=== PATIENT | female | born 1980 ===

== ENCOUNTER → 2016-10-11 | Outpatient (CLI) | payer OTHER ==
--- NOTE | 2016-10-11 18:27 | CT ---
EXAMINATION TYPE: CT brain wo con DATE OF EXAM: 10/11/2016 COMPARISON: NONE HISTORY: Episodes of confusion, becoming more frequent CT DLP: 1054.[address] of the brain was performed. The ventricles, basal cisterns and sulci overlying the cerebral convexities demonstrate a normal appe arance. There is no evidence for intracranial hemorrhage or sulcal effacement. No mass effects are seen. Osseous calvarium is intact. If symptoms persist consider MRI as clinically warranted. IMPRESSION: 1. No acute intracranial process is seen at this time.
== END | disposition home or self-care (01) ==
LOC: RADCTMAIN 17:32
PROVIDERS: ATTEND Internal Medicine
DX: R40.4 Transient alteration of awareness (principal); R56.9 Unspecified convulsions
CPT/HCPCS: 70450

== ENCOUNTER → 2016-10-25 | Outpatient (CLI) | payer OTHER ==
--- NOTE | 2016-10-25 09:13 | US ---
EXAMINATION TYPE: US liver DATE OF EXAM: 10/25/2016 COMPARISON: CT & US CLINICAL HISTORY: R94.5 Abnormal Liver function test. Abnormal LFT's EXAM MEASUREMENTS: Liver Length: 13.3 cm Gallbladder Wall: 0.2 cm CBD: 0.5 cm Right Kidney: 10.3 x 4.6 x 4.3 cm Pancreas: wnl, tail obscured by overlying midline bowel gas Liver: Grossly heterogeneous Gallbladder: wnl Evidence for sonographic Mcguire's sign: No CBD: wnl Right Kidney: wnl, lower pole gassed out IMPRESSION: 1. Fatty liver versus diffuse hepatocellular disease.
== END | disposition home or self-care (01) ==
LOC: RADUSWWP 08:49
PROVIDERS: ATTEND Internal Medicine
DX: R94.5 Abnormal results of liver function studies (principal)
CPT/HCPCS: 76705

== ENCOUNTER 2016-11-09 14:57 | Emergency (ER) | payer OTHER ==
[2016-11-09 15:08] VITALS: TEMP 98.2
[2016-11-09] MEDS ORDERED: HYDROcodone/APAP 5-325MG 1 EACH TAB PO STA (15:14)
--- NOTE | 2016-11-09 15:20 | ED ---
General Adult HPI - General Chief complaint: Extremity Injury, Upper Stated complaint: Fell 15 stairs/Arm Pain Time Seen by Provider: 11/09/16 15:10 Source: patient, RN notes reviewed Mode of arrival: ambulatory Limitations: no limitations - History of Present Illness Initial comments: 36-year-old female presents to the emergency Department chief complaint fall. Patient states she fell down the flight of stairs today. Patient states she was trying step over the cat And lost her balance. Patient states she fell onto her right arm and her right elbow having pain. Patient states she that her head. She denies any neck pain. She denies any other injury from the incident. Patient states that her pain is moderate worsening movement or touch of the right shoulder and worse to movement of the right elbow. Patient denies any hand pain. Patient denies any other injuries. Patient was able to ambulate after the incident. Patient states the pain is moderate. Patient denies any recent fever, chills, shortness of breath, chest pain, back pain, abdominal pain, nausea vomiting, numbness or tingling, dysuria or hematuria, constipation or diarrhea, headaches or visual changes, or any other current symptoms. - Related Data Previous Rx's Medication Instructions Recorded Ibuprofen [Motrin] 600 mg PO Q6HR PRN #20 tab 11/09/16 Allergies Allergy/AdvReac Type Severity Reaction Status Date / Time No Known Allergies Allergy Verified 11/09/16 15:08 Review of Systems ROS Statement: Those systems with pertinent positive or pertinent negative responses have been documented in the HPI. ROS Other: All systems not noted in ROS Statement are negative. Past Medical History Past Medical History: Hypertension Additional Past Medical History / Comment(s): knee pain, back pain History of Any Multi-Drug Resistant Organisms: None Reported Past Surgical History: Back Surgery, Orthopedic Surgery Additional Past Surgical History / Comment(s): D & C l knee Past Anesthesia/Blood Transfusion Reactions: No Reported Reaction Past Psychological History: Anxiety Smoking Status: Current every day smoker Past Alcohol Use History: None Reported Past Drug Use History: None Reported - Past Family History Mother History Unknown: Yes General Exam - General Exam Comments Initial Comments: General: The patient is awake and alert, in no distress, and does not appear acutely ill. Neck: The neck is supple, there is no tenderness. Cardiovascular: There is a regular rate and rhythm. No murmur, rub or gallop is appreciated. Respiratory: Lungs are clear to auscultation, respirations are non-labored, breath sounds are equal. No wheezes, stridor, rales, or rhonchi. Musculoskeletal: Sensation intact. Pulses the right upper extremity. Left of right wrist and hand. Patient patient's the radial head of the right elbow. Patient does have about 50% range of motion but limits her self due to pain. No deformity. Patient answers patient along the anterior aspect of the right shoulder. Patient will only move about 50% due to pain. No tenderness to palpation along the scapula or the clavicle. Neurological: CN II-XII intact, There are no obvious motor or sensory deficits. Coordination appears grossly intact. Speech is normal. Skin: Skin is warm and dry and no rashes or lesions are noted. Psychiatric: Normal mood and affect. Limitations: no limitations Course Vital Signs 11/09/16 15:06 Temperature 98.2 F Pulse Rate 102 H Respiratory 20 Rate Blood Pressure 184/100 O2 Sat by Pulse 98 Oximetry Medical Decision Making - Medical Decision Making 36-year-old female presents for right shoulder and elbow pain after fall. Patient x-rays are reviewed and negative. Once patient's x-rays were negative patient was put through range of motion patient does have good range of motion. Patient's. Right elbow contusion as well as a right elbow contusion and sprain. We discussed follow-up return parameters outpatient family's questions. They state Jose management plan. All questions have been answered. They will be discharged. - Radiology Data Radiology results: report reviewed, image reviewed Disposition Clinical Impression: Contusion of right elbow, Sprain of right shoulder Disposition: HOME SELF-CARE Condition: Stable Instructions: Shoulder Sprain (ED), Contusion in Adults (ED) Additional Instructions: Please use medication as discussed. Please follow up with family doctor if symptoms have not improved over the next two days. Please return to the emergency room if your symptoms increase or worsen or for any other concerns. Prescriptions: Ibuprofen [Motrin] 600 mg PO Q6HR PRN #20 tab PRN Reason: Pain Referrals: Leena Meek MD [Primary Care Provider] - 1-2 days Time of Disposition: 15:45
--- NOTE | 2016-11-09 15:37 | XR ---
EXAMINATION TYPE: XR shoulder complete RT DATE OF EXAM: 11/09/2016 COMPARISON: NONE HISTORY: Pain TECHNIQUE: Shoulder examined in 3 views. FINDINGS: The humeral head articulates with the glenoid. The acromio-clavicular junction is normal. No acute fractures or dislocations are evident. A follow up study can be performed 7-10 days from acute trauma for continued pain. IMPRESSION: 1. Normal Shoulder
--- NOTE | 2016-11-09 15:39 | XR ---
EXAMINATION TYPE: XR elbow limited RT DATE OF EXAM: 11/09/2016 COMPARISON: NONE HISTORY: Fall down stairs, pain TECHNIQUE: 4 images of the elbow with an uncooperative patient. Best images are presented. FINDINGS: No acute displaced fractures are evident. The radius aligns normally with the humerus. No e vidence of elevated anterior fat pad is evident. No posterior fat pad elevation is identified. Soft t issues appear normal. Follow-up study can be performed 7-10 days from acute trauma for continued pain. IMPRESSION: 1. Normal right elbow as visualized.
[2016-11-09 15:51] VITALS: BP 145/81; PULSE 85; RESP 17
== END 2016-11-09 15:49 | disposition home or self-care (01) ==
LOC: EC 14:57
DX: S43.401A Unspecified sprain of right shoulder joint, initial encounter (principal); F17.200 Nicotine dependence, unspecified, uncomplicated; S50.01XA Contusion of right elbow, initial encounter; W10.9XXA Fall (on) (from) unspecified stairs and steps, initial encounter
CPT/HCPCS: 99283

== ENCOUNTER → 2016-12-31 | Outpatient (CLI) | payer OTHER ==
--- NOTE | 2016-12-31 16:45 | NM ---
EXAMINATION TYPE: NM bone/joint limited DATE OF EXAM: 12/31/2016 COMPARISON: Right elbow radiographs 11/09/2016 HISTORY: 36 year-old female right elbow pain, extends up the arm for 5 months, fall injury 2 months a go. TECHNIQUE: After the intravenous administration of 22.6 mCi Tc 99m MDP. Three-hour delayed images we re obtained of the upper extremities from above the elbow through the hands in multiple projections. FINDINGS: Relatively symmetric increased tracer activity at the elbow. The remainder of the distal humerus, for earm, and hands show no abnormal tracer accumulation. IMPRESSION: Symmetric tracer activity at the elbows. No focal abnormal tracer accumulation at the right elbow. Fu rther orthopedic consultation can be considered if patient's symptoms persist.
== END | disposition home or self-care (01) ==
LOC: RADNMMAIN 10:35
PROVIDERS: ATTEND Family Medicine
DX: S50.01XD Contusion of right elbow, subsequent encounter (principal)
CPT/HCPCS: 78300; A9503

== ENCOUNTER 2017-05-04 22:28 | Emergency (ER) | payer OTHER ==
[2017-05-04] MEDS ORDERED: MORPHINE SULFATE 4 MG/ML SYRINGE IV STA (23:40)
[2017-05-04] MEDS ORDERED: SODIUM CHLORIDE 0.9% 500 ML IV STA (23:40)
[2017-05-04] MEDS ORDERED: METOCLOPRAMIDE 5 MG/ML 2 ML VIAL IVP STA (23:40)
--- NOTE | 2017-05-04 23:46 | ED ---
General Adult HPI - General Chief complaint: Headache Stated complaint: headache Time Seen by Provider: 05/04/17 23:03 Source: patient, family, RN notes reviewed Mode of arrival: ambulatory Limitations: no limitations - History of Present Illness Initial comments: Chief complaint and history of present illness this is a 36-year-old female with complaint of headache that started around 4 PM. She took Fioricet without relief. Patient reports that she's had a history of migraines that started after she started having seizure 6 months ago. She takes Fioricet for headaches. She had dry heaves. Photophobia. No neuro deficits. - Related Data Previous Rx's Medication Instructions Recorded Ibuprofen [Motrin] 600 mg PO Q6HR PRN #20 tab 11/09/16 Lisinopril [Zestril] 5 mg PO DAILY #60 tab 05/05/17 Allergies Allergy/AdvReac Type Severity Reaction Status Date / Time No Known Allergies Allergy Verified 05/04/17 22:37 Review of Systems ROS Statement: Those systems with pertinent positive or pertinent negative responses have been documented in the HPI. review of systems. Patient has headache photophobia. No chest pain shortness breath she is nauseated no diarrhea. No skin rashes. All systems were reviewed. Past medical processing significantFor seizure disorder starting 6 months ago. Last time she had a seizure was 2 months ago she reports miss silent seizures. Not tonic-clonic. She takes Vimpat and Optiom. Topamax started to headaches that she has on occasion. Past medical problems include knee pain back pain. She had surgery include a lipoma from the or for back. She had a D&C and knee surgery. The chart reports history of hypertension and previous admissions but the patient does not take any medications does not remember having had high blood pressure. Patient smokes daily. Encouraged to stop. Denies alcohol use. ROS Other: All systems not noted in ROS Statement are negative. Past Medical History Past Medical History: Hypertension, Seizure Disorder Additional Past Medical History / Comment(s): knee pain, back pain, migraines History of Any Multi-Drug Resistant Organisms: None Reported Past Surgical History: Back Surgery, Orthopedic Surgery Additional Past Surgical History / Comment(s): D & C l knee Past Anesthesia/Blood Transfusion Reactions: No Reported Reaction Past Psychological History: Anxiety Smoking Status: Current every day smoker Past Alcohol Use History: None Reported Past Drug Use History: None Reported - Past Family History Mother History Unknown: Yes General Exam - General Exam Comments Initial Comments: General: The patient is awake and alert, moderate distress because of a painful migrainous type headache. Across top of her head. Photophobia. Vital signs temperature 96.9 pulse 105 respiratory rate 20 pulse ox 99% room air blood pressure 178/99. This be repeated as the patient receives her pain medication. Eye: Pupils are equal, round and reactive to light, extra-ocular movements are intact ; there is normal conjunctiva bilaterally. No signs of icterus. patient does have photophobia. Ears, nose, mouth and throat: There are moist mucous membranes and no oral lesions. Neck: mild neck discomfort with full neck flexion. Palpation of the soft tissue and the nape of her neck causes pain as well. Cardiovascular: tachycardic heart rate 105.No murmur, rub or gallop is appreciated. Respiratory: Lungs are clear to auscultation, respirations are non-labored, breath sounds are equal. No wheezes, stridor, rales, or rhonchi. Gastrointestinal: Soft, non-distended, non-tender abdomen without masses or organomegaly noted. There is no rebound or guarding present. No CVA tenderness. Bowel sounds are unremarkable.patient reports she was nauseated and had a dry heave. Back: history of back pain. Musculoskeletal: Normal ROM, no tenderness, There is no pedal edema. There is no calf tenderness or swelling. Sensation intact. Neurological: patient denies any neuro deficits, she has moderately severe headache at this time. She's abdomen the past usually associated with Topamax. Takes Fioricet for her headaches. No neuro deficits. Skin: Skin is warm and dry and no rashes or lesions are noted. Limitations: no limitations Course Vital Signs 05/04/17 05/05/17 05/05/17 22:33 00:01 00:26 Temperature 96.9 F L Pulse Rate 105 H 99 83 Respiratory 20 18 20 Rate Blood Pressure 178/99 142/85 118/72 O2 Sat by Pulse 99 98 97 Oximetry Medical Decision Making - Medical Decision Making After IV hydration and analgesia and antinausea medication the patient's headache is subsided significantly. No evidence of meningismus or stiff neck. Minimal photophobia no nausea. The patient also received lisinopril. Blood pressure 118/80. The patient states she had been diagnosed with hypertension but does not take any medications she will be sent home with a prescription of lisinopril 5 mg. Also advised to follow with family physician. CT the brain was done and reviewed by radiologist his findings are ventricles and sulci appear normal. There is no mass effect or midline shift. There is no sign of intracranial hemorrhage. The calvarium appears intact. Impression normal CT of the brain. No change. As read by Dr. Sanford. The patient received 2 more milligrams of morphine. Advised to continue her home use of Zofran and Fioricet. Patient be placed on lisinopril 5 mg daily. Advised follow-up with family physician. Return emergency room as needed. Disposition Clinical Impression: Migraine aura without headache Disposition: HOME SELF-CARE Condition: Fair Instructions: Acute Headache (ED), Migraine Headache (ED) Additional Instructions: Takes lisinopril 1 tablet daily. Use Fioricet and Zofran as directed. Return emergency room as needed otherwise follow-up with family physician. Prescriptions: Lisinopril [Zestril] 5 mg PO DAILY #60 tab Referrals: Jean-Pierre Orlando Jr, DO [Primary Care Provider] - 1-2 days Time of Disposition: 00:59
[2017-05-05] MEDS ORDERED: LISINOPRIL 5 MG TAB PO STA (00:11)
--- NOTE | 2017-05-05 00:33 | CT ---
EXAMINATION TYPE: CT brain wo con DATE OF EXAM: 05/05/2017 COMPARISON: 10/11/2016 HISTORY: headache CT DLP: 1056.20 mGycm. Automated Exposure Control for Dose Reduction was Utilized. TECHNIQUE: CT scan of the head is performed without contrast. FINDINGS: Ventricles and sulci appear normal. There is no mass effect nor midline shift. There is n o sign of intracranial hemorrhage. The calvarium appears intact. IMPRESSION: Normal CT scan of the brain. No change.
[2017-05-05] MEDS ORDERED: MORPHINE SULFATE/PF 10MG/10ML VL IVP STA (00:56)
[2017-05-05 01:33] VITALS: BP 212/120; PULSE 115; RESP 16; TEMP 99
== END 2017-05-05 01:33 | disposition home or self-care (01) ==
LOC: EC 22:28
DX: G43.109 Migraine with aura, not intractable, without status migrainosus (principal); I10 Essential (primary) hypertension; G40.909 Epilepsy, unspecified, not intractable, without status epilepticus; F17.200 Nicotine dependence, unspecified, uncomplicated
CPT/HCPCS: 70450; 99283; 96374; 96375; 96361; 96376; J2270 ×2; J2765

== ENCOUNTER 2017-06-15 22:27 | Emergency (ER) | payer OTHER ==
[2017-06-15 22:32] VITALS: RESP 18
[2017-06-15] MEDS ORDERED: SODIUM CHLORIDE 0.9% 1,000 ML IV STA (22:57)
[2017-06-15] MEDS ORDERED: cefTRIAXone IN SWFI 2,000 MG/20 ML SYRINGE IVP STA (22:59)
[2017-06-15] MEDS ORDERED: RX INFO: IV CONTRAST WAS GIVEN 1 EACH MISC MISCELLANE PRN (23:02)
[2017-06-15] MEDS ORDERED: KETOROLAC 30 MG/ML 1 ML VIAL IVP STA (23:02)
--- NOTE | 2017-06-15 23:15 | ED ---
General Adult HPI - General Source: patient, RN notes reviewed Mode of arrival: ambulatory Limitations: no limitations <Marco Addison - Last Filed: 06/15/17 23:15> <Eleonora Strauss - Last Filed: 06/16/17 00:48> - General Chief complaint: ENT Stated complaint: sore throat Time Seen by Provider: 06/15/17 22:37 - History of Present Illness Initial comments: 36-year-old female presents to the emergency department for a chief complaint of left sided throat pain x 1 day. Patient's family member is helping with history as patient has difficulty speaking due to pain. Patient states the pain began last pain and has worsened since then. Patient also complains of pain in her tongue. Patient states she is having difficulty swallowing secretions as well. Patient denies any difficulty breathing. Patient denies any cough or congestion. Patient denies any fevers or chills at home. Patient denies any tooth aches or or pain in her ear. Patient denies any recent illnesses. Patient denies any other complaints at this time including headache , shortness of breath, chest pain, abdominal pain, nausea or vomiting. (Marco Addison) - Related Data Previous Rx's Medication Instructions Recorded Ibuprofen [Motrin] 600 mg PO Q6HR PRN #20 tab 11/09/16 Lisinopril [Zestril] 5 mg PO DAILY #60 tab 05/05/17 Amoxicillin/Potassium Clav 1 tab PO Q12HR #20 tab 06/16/17 [Augmentin 875-125 Tablet] Ibuprofen 600 mg PO Q6HR #30 tablet 06/16/17 Allergies Allergy/AdvReac Type Severity Reaction Status Date / Time prednisone Allergy Rash/Hives Verified 06/15/17 22:32 Review of Systems ROS Other: All systems not noted in ROS Statement are negative. <Marco Addison - Last Filed: 06/15/17 23:15> ROS Other: All systems not noted in ROS Statement are negative. <Eleonora Strauss - Last Filed: 06/16/17 00:48> ROS Statement: Those systems with pertinent positive or pertinent negative responses have been documented in the HPI. Past Medical History Past Medical History: Hypertension, Seizure Disorder Additional Past Medical History / Comment(s): knee pain, back pain, migraines History of Any Multi-Drug Resistant Organisms: None Reported Past Surgical History: Back Surgery, Orthopedic Surgery Additional Past Surgical History / Comment(s): D & C l knee Past Anesthesia/Blood Transfusion Reactions: No Reported Reaction Past Psychological History: Anxiety Smoking Status: Current every day smoker Past Alcohol Use History: None Reported Past Drug Use History: None Reported - Past Family History Mother History Unknown: Yes <Marco Addison - Last Filed: 06/15/17 23:15> General Exam Limitations: no limitations General appearance: alert Head exam: Present: atraumatic, normocephalic, normal inspection Eye exam: Present: normal appearance, PERRL, EOMI. Absent: scleral icterus, conjunctival injection, periorbital swelling ENT exam: Present: normal exam, normal oropharynx (No peritonsillar abscess noted. No exudates of the tonsils. No erythema of the throat.), mucous membranes moist, TM's normal bilaterally Neck exam: Present: tenderness (Tenderness to the left anterior neck below the mandible), full ROM (Patient is freely they moving her neck with no stiffness.) , other (No swelling or redness of the neck noted around the area of tenderness. ). Absent: meningismus Respiratory exam: Present: normal lung sounds bilaterally. Absent: respiratory distress, wheezes, rales, rhonchi, stridor Cardiovascular Exam: Present: regular rate, normal rhythm, normal heart sounds. Absent: systolic murmur, diastolic murmur, rubs, gallop, clicks <Marco Addison - Last Filed: 06/15/17 23:15> Vital Signs 06/15/17 06/16/17 22:30 00:26 Temperature 99 F Pulse Rate 95 75 Respiratory 18 18 Rate Blood Pressure 183/83 134/77 O2 Sat by Pulse 99 99 Oximetry Medical Decision Making <Marco Addison - Last Filed: 06/15/17 23:15> - Lab Data Result diagrams: 06/15/17 23:30 06/15/17 23:30 - Radiology Data Radiology results: report reviewed <Eleonora Strauss - Last Filed: 06/16/17 00:48> - Medical Decision Making Per Brittany Dubois PA was assigned the patient after labs and imaging were ordered. (Azael,Marco P) This is a 36-year-old female who presents to the emergency department with chief complaint of sore throat and pain with swallowing that started one day ago. On physical examination, oropharynx is non-erythematous and no tonsillar enlargement is noted. There is tenderness and mild swelling on palpation of the left submandibular area. Patient has difficulty swallowing secretions and is actively spitting. She is nonverbal for majority of the emergency department stay, however when she does speak voice is non-muffled. A soft tissue neck x-ray and soft tissue computed tomography scan were obtained and revealed no evidence for pharyngeal masses. It did reveal nonspecific lymph node enlargement. CBC and CMP were unremarkable. Patient was given IV Rocephin while in the emergency department. She did not receive any steroids that she has an allergy to prednisone. This case was discussed with attending physician , Dr. Vargas. Recommended discharging patient home with ibuprofen 600 mg and Augmentin for the next 10 days. Patient will be given referral to Dr. Shelby, ENT for follow-up on Saturday. Patient was made aware of findings and plan. Vital signs are stable and she is in no acute distress. She will be discharged home at this time. She is in agreement. All questions were answered. (Eleonora Strauss) - Lab Data Lab Results 06/15/17 06/15/17 06/15/17 Range/Units 23:30 23:30 23:30 WBC 10.7 H (3.8-10.6) k/uL RBC 5.60 H (3.80-5.40) m/uL Hgb 15.1 (11.4-16.0) gm/dL Hct 46.0 (34.0-46.0) % MCV 82.1 (80.0-100.0) fL MCH 27.0 (25.0-35.0) pg MCHC 32.9 (31.0-37.0) g/dL RDW 14.0 (11.5-15.5) % Plt Count 269 (150-450) k/uL Neutrophils % 78 % Lymphocytes % 15 % Monocytes % 4 % Eosinophils % 2 % Basophils % 0 % Neutrophils # 8.3 H (1.3-7.7) k/uL Lymphocytes # 1.6 (1.0-4.8) k/uL Monocytes # 0.5 (0-1.0) k/uL Eosinophils # 0.2 (0-0.7) k/uL Basophils # 0.0 (0-0.2) k/uL Sodium 144 (137-145) mmol/L Potassium 4.2 (3.5-5.1) mmol/L Chloride 105 (98-107) mmol/L Carbon Dioxide 23 (22-30) mmol/L Anion Gap 16 mmol/L BUN 15 (7-17) mg/dL Creatinine 0.60 (0.52-1.04) mg/dL Est GFR (CKD-EPI)AfAm >90 (>60 ml/min/1.73 sqM) Est GFR (CKD-EPI)NonAf >90 (>60 ml/min/1.73 sqM) Glucose 107 H (74-99) mg/dL Plasma Lactic Acid Markus 1.4 (0.7-2.0) mmol/L Calcium 9.9 (8.4-10.2) mg/dL Total Bilirubin 0.4 (0.2-1.3) mg/dL AST 22 (14-36) U/L ALT 34 (9-52) U/L Alkaline Phosphatase 123 (38-126) U/L Total Protein 7.6 (6.3-8.2) g/dL Albumin 5.0 (3.5-5.0) g/dL Group A Strep Rapid (Negative) 06/15/17 Range/Units 23:30 WBC (3.8-10.6) k/uL RBC (3.80-5.40) m/uL Hgb (11.4-16.0) gm/dL Hct (34.0-46.0) % MCV (80.0-100.0) fL MCH (25.0-35.0) pg MCHC (31.0-37.0) g/dL RDW (11.5-15.5) % Plt Count (150-450) k/uL Neutrophils % % Lymphocytes % % Monocytes % % Eosinophils % % Basophils % % Neutrophils # (1.3-7.7) k/uL Lymphocytes # (1.0-4.8) k/uL Monocytes # (0-1.0) k/uL Eosinophils # (0-0.7) k/uL Basophils # (0-0.2) k/uL Sodium (137-145) mmol/L Potassium (3.5-5.1) mmol/L Chloride (98-107) mmol/L Carbon Dioxide (22-30) mmol/L Anion Gap mmol/L BUN (7-17) mg/dL Creatinine (0.52-1.04) mg/dL Est GFR (CKD-EPI)AfAm (>60 ml/min/1.73 sqM) Est GFR (CKD-EPI)NonAf (>60 ml/min/1.73 sqM) Glucose (74-99) mg/dL Plasma Lactic Acid Markus (0.7-2.0) mmol/L Calcium (8.4-10.2) mg/dL Total Bilirubin (0.2-1.3) mg/dL AST (14-36) U/L ALT (9-52) U/L Alkaline Phosphatase (38-126) U/L Total Protein (6.3-8.2) g/dL Albumin (3.5-5.0) g/dL Group A Strep Rapid Negative (Negative) - Radiology Data X-ray soft tissue neck inclusion: Normal cervical soft tissue exam. CT soft tissue neck with contrast impression: Nonspecific small cervical and submandibular lymph nodes. No evidence of pharyngeal mass. (Eleonora Strauss) Disposition <Marco Addison P - Last Filed: 06/15/17 23:15> Is patient prescribed a controlled substance at d/c from ED?: No Time of Disposition: 00:48 <Eleonora Staruss - Last Filed: 06/16/17 00:48> Clinical Impression: Odynophagia Disposition: HOME SELF-CARE Condition: Good Instructions: Dysphagia (ED) Additional Instructions: Please follow-up with Dr. Shelby, ENT on Saturday morning. Please take medications as prescribed. Please follow up with primary care provider within 1- 2 days. Return to emergency department if symptoms should worsen or any concerns arise. Prescriptions: Amoxicillin/Potassium Clav [Augmentin 875-125 Tablet] 1 tab PO Q12HR #20 tab Ibuprofen 600 mg PO Q6HR #30 tablet Referrals: Jean-Pierre Orlando Jr, DO [Primary Care Provider] - 1-2 days Mike Shelby DO [Doctor of Osteopathic Medicine] - 1-2 days
[2017-06-15 23:42] LABS: Basophils % (A) 0 %; Eosinophils # (A) 0.2 k/uL (0-0.7); Eosinophils % (A) 2 %; HGB 15.1 gm/dL (11.4-16.0); Lymphocytes # (A) 1.6 k/uL (1.0-4.8); Lymphocytes % (A) 15 %; MCHC 32.9 g/dL (31.0-37.0); MCV 82.1 fL (80.0-100.0); Mean Platelet Volume 6.6; Monocytes # (A) 0.5 k/uL (0-1.0); Monocytes % (A) 4 %; Neutrophils # (A) 8.3 k/uL (1.3-7.7); Neutrophils % (A) 78 %; Platelet Count 269 k/uL (150-450); WBC 10.7 k/uL (3.8-10.6)
[2017-06-15 23:53] LABS: ALT 34 U/L (9-52); AST 22 U/L (14-36); Alkaline Phosphatase 123 U/L (38-126); Anion Gap 16 mmol/L; Blood Urea Nitrogen 15 mg/dL (7-17); Calcium 9.9 mg/dL (8.4-10.2); Carbon Dioxide 23 mmol/L (22-30); Chloride 105 mmol/L (98-107); Glucose 107 mg/dL (74-99); Potassium 4.2 mmol/L (3.5-5.1); Sodium 144 mmol/L (137-145); Total Bilirubin 0.4 mg/dL (0.2-1.3); Total Protein 7.6 g/dL (6.3-8.2)
--- NOTE | 2017-06-16 00:22 | CT ---
EXAMINATION TYPE: CT soft tissue neck w con DATE OF EXAM: 06/16/2017 12:10 AM COMPARISON: NONE HISTORY: Dysphasia and constant spitting up. c/o sore neck and swelling mostly to left side. CT DLP: 433.0 mGycm Automated exposure control for dose reduction was used. CONTRAST: CT scan of the neck is performed following with IV Contrast, patient injected with 100 mL of Isovue 3 00. Axial images are obtained, coronal and sagittal reformatted images are reviewed. FINDINGS: There is normal branching pattern of the great vessels on the aortic arch. There is bilateral flow in the carotid and vertebral arteries. There is flow in the jugular veins. Thyroid gland is symmetric. Trachea appears normal. Epiglottis is normal. The submandibular salivary glands are symmetric. Parotid glands are symmetric. There are a few anteri or triangle cervical lymph nodes measure up to 1 cm. I see no significant adenopathy. The tonsils puneet ear normal. Adenoids appear normal. Visualized paranasal sinuses appear normal. Sella turcica is norm al. Temporal bones appear normal. I see no pathologic fluid collection. There are a few submandibular salivary glands and measure up to 1 cm. I see no pathologic enhancement. The cervical spine appears normal. IMPRESSION: Nonspecific small cervical and submandibular lymph nodes. No evidence of a pharyngeal ma ss.
--- NOTE | 2017-06-16 00:23 | XR ---
History dysphagia. Spitting up. Comparison none. Technique 2 views. FINDINGS: Cervical vertebra have normal spacing and alignment. Subglottic trachea appears normal. Epiglottis is normal. Prevertebral soft tissues appear normal. CONCLUSION: Normal cervical soft tissue exam.
[2017-06-16 00:27] VITALS: BP 134/77; PULSE 75
[2017-06-16 00:56] VITALS: TEMP 97.6
== END 2017-06-16 00:55 | disposition home or self-care (01) ==
LOC: EC 22:27
DX: R13.10 Dysphagia, unspecified (principal); R07.0 Pain in throat; K14.6 Glossodynia; I10 Essential (primary) hypertension; F17.200 Nicotine dependence, unspecified, uncomplicated; Z88.8 Allergy status to other drugs, medicaments and biological substances
CPT/HCPCS: 36415; 80053; 83605; 85025; 87040; 87081; 87430; 70360; 70491; 99284; 96374; 96375; 96361; J0696; J1885; Q9967

== ENCOUNTER → 2017-07-22 | Outpatient (CLI) | payer OTHER ==
[2017-07-22 12:13] LABS: ALT 38 U/L (9-52); AST 23 U/L (14-36); Albumin 4.1 g/dL (3.5-5.0); Alkaline Phosphatase 76 U/L (38-126); Anion Gap 12 mmol/L; Blood Urea Nitrogen 10 mg/dL (7-17); Calcium 8.9 mg/dL (8.4-10.2); Carbon Dioxide 22 mmol/L (22-30); Chloride 108 mmol/L (98-107); Glucose 81 mg/dL (74-99); Potassium 4.1 mmol/L (3.5-5.1); Sodium 142 mmol/L (137-145); Total Bilirubin 0.4 mg/dL (0.2-1.3); Total Protein 6.3 g/dL (6.3-8.2)
== END | disposition home or self-care (01) ==
LOC: LABWHC1 11:13
PROVIDERS: ATTEND Psychiatry & Neurology Pain Medicine
DX: G35 Multiple sclerosis (principal); R25.1 Tremor, unspecified
CPT/HCPCS: 36415; 80053

== ENCOUNTER → 2017-08-29 | Outpatient (CLI) | payer OTHER ==
--- NOTE | 2017-08-30 10:09 | US ---
EXAMINATION TYPE: US mass soft tissue chest/back DATE OF EXAM: 08/29/2017 COMPARISON: NONE CLINICAL HISTORY: R22.2 chest mass. Patient indicates area of bulge on right chest wall at level of bra. Areas of lobular adipose tissue seen; No discrete mass seen No gross abnormality. No suspicious sonographic lesion. IMPRESSION: No sonographic finding to correspond to the patient's palpable abnormality. No suspiciou s sonographic lesion.
== END | disposition home or self-care (01) ==
LOC: RADUSWWP 15:27
PROVIDERS: ATTEND Surgery
DX: R22.2 Localized swelling, mass and lump, trunk (principal)

== ENCOUNTER → 2017-09-05 | Outpatient (CLI) | payer OTHER | END | disposition home or self-care (01) | LOC: LABWHC1 16:11 | PROVIDERS: ATTEND Obstetrics & Gynecology | DX: Z34.80 Encounter for supervision of other normal pregnancy, unspecified trimester (principal); Z3A.00 Weeks of gestation of pregnancy not specified | CPT/HCPCS: 36415; 84702 ==

== ENCOUNTER 2017-09-13 10:31 | Emergency (ER) | payer OTHER ==
[2017-09-13 11:22] LABS: Appearance,Urine Cloudy (Clear); Bilirubin,Urine Negative (Negative); Blood,Urine Negative (Negative); Color,Urine Yellow; Glucose,Urine (UA) Negative (Negative); Ketones,Urine Trace (Negative); Leukocyte Esterase,Urine Negative (Negative); Mucus,Urine Rare /hpf; Nitrite,Urine Negative (Negative); Protein,Urine Negative (Negative); RBC,Urine <1 /hpf (0-5); Specific Gravity,Urine 1.017 (1.001-1.035); Squamous Epithelial Cell,Urine 5 /hpf (0-4); Urobilinogen,Urine <2.0 mg/dL (<2.0); WBC,Urine 1 /hpf (0-5)
--- NOTE | 2017-09-13 12:12 | US ---
EXAMINATION TYPE: Transabdominal DATE OF EXAM: 05/21/17 COMPARISON: None CLINICAL HISTORY: Pain. Spotting, cramping today. Hx of seizures for the past few weeks. Unsure LMP . EXAM PERFORMED: Transvaginal (TV) and Transabdominal (TA) EXAM MEASUREMENTS: GESTATIONAL AGE / DATING Dates by LMP: (9 weeks/5 days) EDC: 04/13/2018 Dates by Current Scan for: (6 weeks/0 days) EDC: 05/09/2018 MATERNAL ANATOMY Uterus: 9.1 x 6.7 x 5.2 cm Right Ovary: 3.4 x 1.8 x 2.5 cm Left Ovary: 2.5 x 1.7 x 1.8 cm Post CDS / Adnexa: no free fluid Presence of free fluid: no Presence of corpus luteal cyst: right ovarian - 1.7 x 1.7 x 1.7 cm Presence of subchorionic bleed: Possible. Crescentic hypoechoic areas are seen on few sonographic jackie ges possibly representing a subchorionic hemorrhage appearing to occupy approximately 50% of the gest ational sac diameter. Short-term follow-up is recommended. GESTATION / SURVEY CRL: 0.5 (6 weeks/2 days) MSD: 1.5 (5 weeks/5 days) Yolk Sac (normal less than 6mm): 2.0 Heart Rate: 123 bpm Rhythm: Normal IUP: Viable IUP Date of LMP: 07/07/2017 Beta HcG (if available): Not available at this time Single live IUP measuring 6 weeks 0 days IMPRESSION: 1. Single live intrauterine with a sonographic age of 6 weeks and 0 days, discordant with t he stated menstrual age. Sonographic estimated date of delivery of 05/09/2018. 2. Crescentic areas of hypoattenuation are seen on few images possibly representing a subchorionic he morrhage and estimated to be approximately 50% the gestational sac diameter. Short-term follow-up ult rasound is recommended.
--- NOTE | 2017-09-13 12:39 | ED ---
General Adult HPI - General Chief complaint: Vaginal Bleeding Stated complaint: preg and bleeding Time Seen by Provider: 09/13/17 10:48 Source: patient, RN notes reviewed, old records reviewed Mode of arrival: ambulatory Limitations: no limitations - History of Present Illness Initial comments: This is a 37-year-old female the ER for evaluation. She presents today for evaluation of vaginal bleeding, positive bike to 10 weeks but appeared patient is 1 miscarriage around the same time that started with vaginal bleeding, patient concern for same. Mild abdominal cramping no significant pain. Patient has positive blood breath currently, is blood type positive. Again patient has no other complaints - Related Data Home Medications Medication Instructions Recorded Confirmed Lacosamide [Vimpat] 100 mg PO BID 09/13/17 09/13/17 Allergies Allergy/AdvReac Type Severity Reaction Status Date / Time prednisone Allergy Rash/Hives Verified 09/13/17 10:49 Review of Systems ROS Statement: Those systems with pertinent positive or pertinent negative responses have been documented in the HPI. ROS Other: All systems not noted in ROS Statement are negative. Past Medical History Past Medical History: Hypertension, Seizure Disorder Additional Past Medical History / Comment(s): knee pain, back pain, migraines History of Any Multi-Drug Resistant Organisms: None Reported Past Surgical History: Back Surgery, Orthopedic Surgery Additional Past Surgical History / Comment(s): D & C l knee Past Anesthesia/Blood Transfusion Reactions: No Reported Reaction Past Psychological History: Anxiety Smoking Status: Current every day smoker Past Alcohol Use History: None Reported Past Drug Use History: None Reported - Past Family History Mother History Unknown: Yes General Exam Limitations: no limitations General appearance: alert, in no apparent distress Head exam: Present: atraumatic, normocephalic, normal inspection Eye exam: Present: normal appearance, PERRL, EOMI. Absent: scleral icterus, conjunctival injection, periorbital swelling ENT exam: Present: normal exam, mucous membranes moist Neck exam: Present: normal inspection. Absent: tenderness, meningismus, lymphadenopathy Respiratory exam: Present: normal lung sounds bilaterally. Absent: respiratory distress, wheezes, rales, rhonchi, stridor Cardiovascular Exam: Present: regular rate, normal rhythm, normal heart sounds. Absent: systolic murmur, diastolic murmur, rubs, gallop, clicks GI/Abdominal exam: Present: soft, normal bowel sounds. Absent: distended, tenderness, guarding, rebound, rigid Extremities exam: Present: normal inspection, full ROM, normal capillary refill. Absent: tenderness, pedal edema, joint swelling, calf tenderness Back exam: Present: normal inspection Neurological exam: Present: alert, oriented X3, CN II-XII intact Psychiatric exam: Present: normal affect, normal mood Skin exam: Present: warm, dry, intact, normal color. Absent: rash Course Vital Signs 09/13/17 09/13/17 10:40 13:00 Temperature 98.3 F 97.4 F L Pulse Rate 85 70 Respiratory 18 16 Rate Blood Pressure 138/84 117/63 O2 Sat by Pulse 98 100 Oximetry Medical Decision Making - Medical Decision Making 29 female the ER for evaluation of vaginal bleeding in . Subchorionic hemorrhage and threatened . Patient explained history and off some findings. Patient will follow up with OB as directed - Lab Data Lab Results 09/13/17 Range/Units 11:07 Urine Color Yellow Urine Appearance Cloudy H (Clear) Urine pH 6.0 (5.0-8.0) Ur Specific [place] 1.017 (1.001-1.035) Urine Protein Negative (Negative) Urine Glucose (UA) Negative (Negative) Urine Ketones Trace H (Negative) Urine Blood Negative (Negative) Urine Nitrite Negative (Negative) Urine Bilirubin Negative (Negative) Urine Urobilinogen <2.0 (<2.0) mg/dL Ur Leukocyte Esterase Negative (Negative) Urine RBC <1 (0-5) /hpf Urine WBC 1 (0-5) /hpf Ur Squamous Epith Cells 5 H (0-4) /hpf Urine Mucus Rare H (None) /hpf - Radiology Data Radiology results: report reviewed (Ultrasound shows positive IUP), image reviewed Disposition Clinical Impression: Threatened , Vaginal bleeding, Subchorionic hemorrhage Disposition: HOME SELF-CARE Condition: Good Instructions: Threatened Miscarriage (ED) Is patient prescribed a controlled substance at d/c from ED?: No Referrals: Jean-Pierre Orlando Jr, [Primary Care Provider] - 1-2 days
[2017-09-13 13:01] VITALS: BP 117/63; PULSE 70; RESP 16; TEMP 97.4
== END 2017-09-13 13:00 | disposition home or self-care (01) ==
LOC: EC 10:31
DX: O20.0 Threatened abortion (principal); O20.8 Other hemorrhage in early pregnancy; O99.351 Diseases of the nervous system complicating pregnancy, first trimester; G40.909 Epilepsy, unspecified, not intractable, without status epilepticus; O99.331 Smoking (tobacco) complicating pregnancy, first trimester; F17.200 Nicotine dependence, unspecified, uncomplicated; Z79.899 Other long term (current) drug therapy; Z88.8 Allergy status to other drugs, medicaments and biological substances; Z3A.01 Less than 8 weeks gestation of pregnancy
CPT/HCPCS: 76801; 76817; 81001; 87086; 99284

== ENCOUNTER 2017-10-06 19:01 | Emergency (ER) | payer OTHER ==
[2017-10-06] MEDS ORDERED: SODIUM CHLORIDE 0.9% 1,000 ML IV ONE (21:08)
[2017-10-06 21:46] LABS: Basophils % (A) 0 %; Eosinophils # (A) 0.2 k/uL (0-0.7); Eosinophils % (A) 2 %; HGB 13.7 gm/dL (11.4-16.0); Lymphocytes # (A) 2.1 k/uL (1.0-4.8); Lymphocytes % (A) 22 %; MCH 28.2 pg (25.0-35.0); MCHC 35.1 g/dL (31.0-37.0); MCV 80.5 fL (80.0-100.0); Mean Platelet Volume 6.6; Monocytes # (A) 0.5 k/uL (0-1.0); Monocytes % (A) 5 %; Neutrophils # (A) 6.7 k/uL (1.3-7.7); Neutrophils % (A) 70 %; Platelet Count 276 k/uL (150-450); RBC 4.84 m/uL (3.80-5.40); RDW 13.8 % (11.5-15.5); WBC 9.6 k/uL (3.8-10.6)
--- NOTE | 2017-10-06 21:53 | ED ---
Female Urogenital HPI - General Chief complaint: Vaginal Bleeding Stated complaint: AND BLEEDING Time Seen by Provider: 10/06/17 20:44 Source: patient Mode of arrival: ambulatory Limitations: no limitations - History of Present Illness Initial comments: Patient is a 37-year-old female that is 12 weeks presenting for vaginal bleeding. She states that last night, she started having cramping in the lower abdomen associated with nausea but no vomiting and she had one episode of blood clots today. She admits to chills but no vomiting or diarrhea states that she is getting over pneumonia but currently has no symptoms such as coughing. - Related Data Home Medications Medication Instructions Recorded Confirmed Lacosamide [Vimpat] 100 mg PO BID 09/13/17 09/13/17 Allergies Allergy/AdvReac Type Severity Reaction Status Date / Time prednisone Allergy Rash/Hives Verified 09/13/17 10:49 Review of Systems ROS Statement: Those systems with pertinent positive or pertinent negative responses have been documented in the HPI. Constitutional: Negative for chills, fatigue and fever. HENT: Negative for congestion. Respiratory: Negative for chest tightness, shortness of breath and wheezing. Negative for cough Cardiovascular: Negative for chest pain and palpitations. Gastrointestinal: Positive for abdominal pain and nausea. Negative for abdominal distention, diarrhea, and vomiting. Genitourinary: Negative for dysuria. Positive for vaginal bleeding Musculoskeletal: Negative for back pain, neck pain and neck stiffness. Skin: Negative for color change. Neurological: Negative for dizziness, speech difficulty, weakness and light- headedness. Psychiatric/Behavioral: Negative for agitation and confusion. Negative for anxiety ROS Other: All systems not noted in ROS Statement are negative. Past Medical History Past Medical History: Hypertension, Seizure Disorder Additional Past Medical History / Comment(s): knee pain, back pain, migraines History of Any Multi-Drug Resistant Organisms: None Reported Past Surgical History: Back Surgery, Orthopedic Surgery Additional Past Surgical History / Comment(s): D & C l knee Past Anesthesia/Blood Transfusion Reactions: No Reported Reaction Past Psychological History: Anxiety Smoking Status: Current every day smoker Past Alcohol Use History: None Reported Past Drug Use History: None Reported - Past Family History Mother History Unknown: Yes General Exam - General Exam Comments Initial Comments: Constitutional: Pt is oriented to person, place, and time. Pt appears well- developed and well-nourished. No distress. HENT: Head: Normocephalic and atraumatic. Eyes: EOM are normal. Neck: Normal range of motion. Neck supple. Cardiovascular: Normal rate, regular rhythm, S1 normal, S2 normal and normal heart sounds. Exam reveals no gallop and no friction rub. No murmur heard. Pulmonary/Chest: Effort normal and breath sounds normal. No tachypnea and no bradypnea. No respiratory distress. No wheezes or rales noted. Abdominal: Soft. Bowel sounds are normal. Pt exhibits no shifting dullness, no distension, no pulsatile liver, no fluid wave, no abdominal bruit and no ascites. There is no tenderness. There is no rigidity, no rebound, no guarding, no tenderness at McBurney's point and negative Mcguire's sign. Musculoskeletal: Normal range of motion. Neurological: Pt is alert and oriented to person, place, and time. No cranial nerve deficit. Skin: Skin is warm and dry. No rash noted. Pt is not diaphoretic. No erythema. No pallor. Psychiatric: Pt has a normal mood and affect. Pt behavior is normal. Thought content normal. Limitations: no limitations Course Vital Signs 10/06/17 10/06/17 10/06/17 19:45 22:35 23:29 Temperature 98.7 F 98.1 F Pulse Rate 87 70 Respiratory 18 16 Rate Blood Pressure 137/70 111/59 O2 Sat by Pulse 98 100 Oximetry Medical Decision Making - Medical Decision Making Laboratory studies showed that hemoglobin was stable at 13.7 and electrolytes were within normal limits. Transvaginal ultrasound was performed and showed intrauterine with a heart rate of approximately 172 bpm. There was a subchorionic bleed noted to be any right of the gestational sac and measured 1.8 x 0.7 x 0.6 cm. Patient showed no evidence of hemorrhaging or vaginal bleeding while in the emergency department and it was felt that the patient could be safely discharged with follow-up with obstetrics in the next 1- 2 days. Patient was agreeable plan. - Lab Data Result diagrams: 10/06/17 21:26 10/06/17 21:26 Lab Results 10/06/17 10/06/17 10/06/17 Range/Units 21:00 21:26 21:26 WBC 9.6 (3.8-10.6) k/uL RBC 4.84 (3.80-5.40) m/uL Hgb 13.7 (11.4-16.0) gm/dL Hct 39.0 (34.0-46.0) % MCV 80.5 (80.0-100.0) fL MCH 28.2 (25.0-35.0) pg MCHC 35.1 (31.0-37.0) g/dL RDW 13.8 (11.5-15.5) % Plt Count 276 (150-450) k/uL Neutrophils % 70 % Lymphocytes % 22 % Monocytes % 5 % Eosinophils % 2 % Basophils % 0 % Neutrophils # 6.7 (1.3-7.7) k/uL Lymphocytes # 2.1 (1.0-4.8) k/uL Monocytes # 0.5 (0-1.0) k/uL Eosinophils # 0.2 (0-0.7) k/uL Basophils # 0.0 (0-0.2) k/uL PT (9.0-12.0) sec INR (<1.2) APTT (22.0-30.0) sec Sodium 137 (137-145) mmol/L Potassium 3.7 (3.5-5.1) mmol/L Chloride 106 (98-107) mmol/L Carbon Dioxide 22 (22-30) mmol/L Anion Gap 9 mmol/L BUN 13 (7-17) mg/dL Creatinine 0.50 L (0.52-1.04) mg/dL Est GFR (CKD-EPI)AfAm >90 (>60 ml/min/1.73 sqM) Est GFR (CKD-EPI)NonAf >90 (>60 ml/min/1.73 sqM) Glucose 96 (74-99) mg/dL Calcium 9.7 (8.4-10.2) mg/dL Total Bilirubin 0.4 (0.2-1.3) mg/dL AST 20 (14-36) U/L ALT 26 (9-52) U/L Alkaline Phosphatase 74 (38-126) U/L Total Protein 6.6 (6.3-8.2) g/dL Albumin 4.0 (3.5-5.0) g/dL HCG, Quant 79560.9 mIU/mL Urine Color Yellow Urine Appearance Cloudy H (Clear) Urine pH 5.5 (5.0-8.0) Ur Specific [place] 1.023 (1.001-1.035) Urine Protein Negative (Negative) Urine Glucose (UA) Negative (Negative) Urine Ketones Negative (Negative) Urine Blood Small H (Negative) Urine Nitrite Negative (Negative) Urine Bilirubin Negative (Negative) Urine Urobilinogen <2.0 (<2.0) mg/dL Ur Leukocyte Esterase Trace H (Negative) Urine RBC <1 (0-5) /hpf Urine WBC 3 (0-5) /hpf Ur Squamous Epith Cells 7 H (0-4) /hpf Urine Mucus Rare H (None) /hpf Blood Type Blood Type Recheck Antibody Screen Spec Expiration Date 10/06/17 10/06/17 Range/Units 21:26 21:26 WBC (3.8-10.6) k/uL RBC (3.80-5.40) m/uL Hgb (11.4-16.0) gm/dL Hct (34.0-46.0) % MCV (80.0-100.0) fL MCH (25.0-35.0) pg MCHC (31.0-37.0) g/dL RDW (11.5-15.5) % Plt Count (150-450) k/uL Neutrophils % % Lymphocytes % % Monocytes % % Eosinophils % % Basophils % % Neutrophils # (1.3-7.7) k/uL Lymphocytes # (1.0-4.8) k/uL Monocytes # (0-1.0) k/uL Eosinophils # (0-0.7) k/uL Basophils # (0-0.2) k/uL PT 9.4 (9.0-12.0) sec INR 0.9 (<1.2) APTT 21.6 L (22.0-30.0) sec Sodium (137-145) mmol/L Potassium (3.5-5.1) mmol/L Chloride (98-107) mmol/L Carbon Dioxide (22-30) mmol/L Anion Gap mmol/L BUN (7-17) mg/dL Creatinine (0.52-1.04) mg/dL Est GFR (CKD-EPI)AfAm (>60 ml/min/1.73 sqM) Est GFR (CKD-EPI)NonAf (>60 ml/min/1.73 sqM) Glucose (74-99) mg/dL Calcium (8.4-10.2) mg/dL Total Bilirubin (0.2-1.3) mg/dL AST (14-36) U/L ALT (9-52) U/L Alkaline Phosphatase (38-126) U/L Total Protein (6.3-8.2) g/dL Albumin (3.5-5.0) g/dL HCG, Quant mIU/mL Urine Color Urine Appearance (Clear) Urine pH (5.0-8.0) Ur Specific [place] (1.001-1.035) Urine Protein (Negative) Urine Glucose (UA) (Negative) Urine Ketones (Negative) Urine Blood (Negative) Urine Nitrite (Negative) Urine Bilirubin (Negative) Urine Urobilinogen (<2.0) mg/dL Ur Leukocyte Esterase (Negative) Urine RBC (0-5) /hpf Urine WBC (0-5) /hpf Ur Squamous Epith Cells (0-4) /hpf Urine Mucus (None) /hpf Blood Type O Positive Blood Type Recheck No Antibody Screen NEGATIVE Spec Expiration Date 10/09/2017 - 2325 Disposition Clinical Impression: Vaginal bleeding during , Threatened miscarriage Disposition: HOME SELF-CARE Condition: Good Instructions: Threatened Miscarriage (ED) Is patient prescribed a controlled substance at d/c from ED?: No Referrals: Jean-Pierre Orlando Jr, DO [Primary Care Provider] - 1-2 days Teresa Mata DO [Doctor of Osteopathic Medicine] - 1-2 days Time of Disposition: 23:07
[2017-10-06 21:56] LABS: ALT 26 U/L (9-52); AST 20 U/L (14-36); Alkaline Phosphatase 74 U/L (38-126); Anion Gap 9 mmol/L; Blood Urea Nitrogen 13 mg/dL (7-17); Calcium 9.7 mg/dL (8.4-10.2); Carbon Dioxide 22 mmol/L (22-30); Chloride 106 mmol/L (98-107); Glucose 96 mg/dL (74-99); Potassium 3.7 mmol/L (3.5-5.1); Sodium 137 mmol/L (137-145); Total Bilirubin 0.4 mg/dL (0.2-1.3); Total Protein 6.6 g/dL (6.3-8.2)
[2017-10-06 22:04] LABS: Appearance,Urine Cloudy (Clear); Bilirubin,Urine Negative (Negative); Blood,Urine Small (Negative); Color,Urine Yellow; Glucose,Urine (UA) Negative (Negative); Ketones,Urine Negative (Negative); Leukocyte Esterase,Urine Trace (Negative); Mucus,Urine Rare /hpf; Nitrite,Urine Negative (Negative); PH, Urine 5.5 (5.0-8.0); Protein,Urine Negative (Negative); RBC,Urine <1 /hpf (0-5); Specific Gravity,Urine 1.023 (1.001-1.035); Squamous Epithelial Cell,Urine 7 /hpf (0-4); Urobilinogen,Urine <2.0 mg/dL (<2.0); WBC,Urine 3 /hpf (0-5)
[2017-10-06 22:13] LABS: INR 0.9 (<1.2); Prothrombin Time 9.4 sec (9.0-12.0)
[2017-10-06 22:17] LABS: Partial Thromboplastin Time 21.6 sec (22.0-30.0)
[2017-10-06 22:36] LABS: HCG,Quantitative Serum 45271.9 mIU/mL
--- NOTE | 2017-10-06 22:51 | US ---
EXAMINATION TYPE: Transabdominal DATE OF EXAM: 10/06/2017 COMPARISON: US 09/13/2017 CLINICAL HISTORY: Bleeding with cramping rt> lt. pt lethargic getting over pneumonia recently. Hx D&C .. EXAM PERFORMED: Transabdominal (TA) EXAM MEASUREMENTS: GESTATIONAL AGE / DATING Physician Established: Not yet established Dates by LMP: (12 weeks/0 days) EDC: 04/20/18 Dates by /First Scan: ( 9 weeks/3 days) EDC: 05/09/18 Dates by Current Scan for: (10 weeks/1 days) EDC: 05/03/18 MATERNAL ANATOMY Uterus: anteverted, wnl; 12.7 x 7.4 x 8.5 cm Right Ovary: ?corpus luteum measuring 1.7 x 1.5 x 1.7 cm; 3.4 x 2.5 x 2.5 cm Left Ovary: appears wnl; 3.2 x 1.8 x 1.9 cm Post CDS / Adnexa: appears wnl Presence of free fluid: no Presence of corpus luteal cyst: Yes, right ovary measuring 1.7 x 1.5 x 1.7 cm Presence of subchorionic bleed: Yes measuring approximately 1.8 x 0.7 x 0.6 cm right of gest sac. GESTATION / SURVEY CRL: 3.2 cm (10 weeks/1 days) Heart Rate: 172 bpm Rhythm: Normal IUP: Viable IUP Date of LMP: ~07/14/17 Beta HcG (if available): Not available at this time IMPRESSION: The ultrasound gestational age is 10 weeks and 1 day. No complicating process seen.
[2017-10-06 22:52] VITALS: PULSE 70; RESP 16; TEMP 98.1
[2017-10-06 23:31] VITALS: BP 111/59
== END 2017-10-06 23:32 | disposition home or self-care (01) ==
LOC: EC 19:01
DX: O20.0 Threatened abortion (principal); O99.89 Other specified diseases and conditions complicating pregnancy, childbirth and the puerperium; R11.0 Nausea; O99.351 Diseases of the nervous system complicating pregnancy, first trimester; G40.909 Epilepsy, unspecified, not intractable, without status epilepticus; O99.331 Smoking (tobacco) complicating pregnancy, first trimester; F17.200 Nicotine dependence, unspecified, uncomplicated; Z79.899 Other long term (current) drug therapy; Z88.8 Allergy status to other drugs, medicaments and biological substances; Z3A.12 12 weeks gestation of pregnancy
CPT/HCPCS: 36415; 76801; 80053; 81001; 84702; 85025; 85610; 85730; 86850; 86900; 86901; 99284

== ENCOUNTER 2017-11-30 18:18 | Emergency (ER) | payer OTHER ==
[2017-11-30 18:38] VITALS: RESP 18
[2017-11-30] MEDS ORDERED: METOCLOPRAMIDE 5 MG/ML 2 ML VIAL IVP STA (19:02)
[2017-11-30] MEDS ORDERED: SODIUM CHLORIDE 0.9% 1,000 ML IV STA (19:02)
[2017-11-30] MEDS ORDERED: ACETAMINOPHEN IV (For NPO) 1,000 MG in EMPTY BAG 1 BAG IVPB STA (19:02)
--- NOTE | 2017-11-30 19:06 | ED ---
General Adult HPI - General Chief complaint: Abdominal Pain Stated complaint: 19 wks preg, abd pain Time Seen by Provider: 11/30/17 18:52 Source: patient, RN notes reviewed Mode of arrival: ambulatory Limitations: no limitations - History of Present Illness Initial comments: Patient 37-year-old female who is G5, P3, approximately 19 weeks. By ultrasound , presented to the emergency room today with a chief complaint of lower abdominal and right-sided pain over the last week. Patient is met that she's noticed pain after urinating. States that it is not dysuria. She states that afterwards that she has crampy lower abdomen at times radiating up the right side of the abdomen. Patient also admits to headache over the last week. States located all over his been constant. Patient denies any vaginal bleeding or discharge. Patient denies seizures. She is on Vimpat. Patient was taken off other seizure medications because of . She denies seizure 2 days ago. She states it was witnessed by her daughter. Denies any other complaints or symptoms. Patient denies any recent fever, chills, shortness of breath, chest pain, vomiting, numbness or tingling, dysuria or hematuria, constipation or diarrhea, visual changes, or any other complaints. - Related Data Home Medications Medication Instructions Recorded Confirmed Lacosamide [Vimpat] 100 mg PO BID 09/13/17 09/13/17 Allergies Allergy/AdvReac Type Severity Reaction Status Date / Time prednisone Allergy Rash/Hives Verified 11/30/17 18:37 Review of Systems ROS Statement: Those systems with pertinent positive or pertinent negative responses have been documented in the HPI. ROS Other: All systems not noted in ROS Statement are negative. Past Medical History Past Medical History: Hypertension, Seizure Disorder Additional Past Medical History / Comment(s): knee pain, back pain, migraines History of Any Multi-Drug Resistant Organisms: None Reported Past Surgical History: Back Surgery, Orthopedic Surgery Additional Past Surgical History / Comment(s): D & C l knee Past Anesthesia/Blood Transfusion Reactions: No Reported Reaction Past Psychological History: Anxiety Smoking Status: Current every day smoker Past Alcohol Use History: None Reported Past Drug Use History: None Reported - Past Family History Mother History Unknown: Yes General Exam - General Exam Comments Initial Comments: General: The patient is awake and alert, in no distress, and does not appear acutely ill. Eye: Pupils are equal, round and reactive to light. Extra-ocular movements are intact. No nystagmus. There is normal conjunctiva bilaterally. No signs of icterus. Ears, nose, mouth and throat: There are moist mucous membranes and no oral lesions. Neck: The neck is supple, there is no tenderness or JVD. Cardiovascular: There is a regular rate and rhythm. No murmur, rub or gallop is appreciated. Respiratory: Lungs are clear to auscultation, respirations are non-labored, breath sounds are equal. No wheezes, stridor, rales, or rhonchi. Gastrointestinal: Abdomen soft on palpation. Patient does have tenderness both right and left lower quadrant and suprapubic over the bladder. No rebound , guarding or CVA tenderness. Musculoskeletal: Normal ROM, no tenderness. Sensation intact. Strength 5/5. Pulses equal bilaterally 2+. Neurological: A&O x 3. CN II-XII intact, There are no obvious motor or sensory deficits. Coordination appears grossly intact. Speech is normal. Skin: Skin is warm and dry and no rashes or lesions are noted. Psychiatric: Cooperative, appropriate mood & affect, normal judgment. Limitations: no limitations Course Vital Signs 11/30/17 18:34 Temperature 98.2 F Pulse Rate 93 Respiratory 18 Rate Blood Pressure 127/69 O2 Sat by Pulse 97 Oximetry EKG Findings - EKG Comments: EKG Findings:: EKG performed at 1938: Shows normal sinus rhythm at 84 beats per minute. ND interval 152. QRS 78. QT/QTC 370/437. No acute ST change. Medical Decision Making - Medical Decision Making Patient reexamined at this time shows no signs of distress. She is resting comfortable. Patient was given Reglan and IV fluids. She states headache is gone. Patient's having abdominal pain after voiding. Urinalysis shows no sign of infection. heart tones obtained by OB nurse at 156. Patient's abdomen is soft on palpation. Vitals are stable. Patient will be discharged to follow-up with her OB Saturday morning. She is advised returning if any symptoms increase or worsen. - Lab Data Result diagrams: 11/30/17 19:10 11/30/17 19:10 Lab Results 11/30/17 11/30/17 11/30/17 Range/Units 19:10 19:10 19:10 WBC 7.6 (3.8-10.6) k/uL RBC 4.62 (3.80-5.40) m/uL Hgb 12.9 (11.4-16.0) gm/dL Hct 38.1 (34.0-46.0) % MCV 82.5 (80.0-100.0) fL MCH 28.0 (25.0-35.0) pg MCHC 33.9 (31.0-37.0) g/dL RDW 14.1 (11.5-15.5) % Plt Count 268 (150-450) k/uL Neutrophils % 71 % Lymphocytes % 22 % Monocytes % 5 % Eosinophils % 1 % Basophils % 0 % Neutrophils # 5.3 (1.3-7.7) k/uL Lymphocytes # 1.7 (1.0-4.8) k/uL Monocytes # 0.4 (0-1.0) k/uL Eosinophils # 0.1 (0-0.7) k/uL Basophils # 0.0 (0-0.2) k/uL Sodium 138 (137-145) mmol/L Potassium 3.8 (3.5-5.1) mmol/L Chloride 108 H (98-107) mmol/L Carbon Dioxide 20 L (22-30) mmol/L Anion Gap 10 mmol/L BUN 8 (7-17) mg/dL Creatinine 0.53 (0.52-1.04) mg/dL Est GFR (CKD-EPI)AfAm >90 (>60 ml/min/1.73 sqM) Est GFR (CKD-EPI)NonAf >90 (>60 ml/min/1.73 sqM) Glucose 101 H (74-99) mg/dL Calcium 9.7 (8.4-10.2) mg/dL Total Bilirubin 0.4 (0.2-1.3) mg/dL AST 18 (14-36) U/L ALT 23 (9-52) U/L Alkaline Phosphatase 60 (38-126) U/L Total Protein 6.4 (6.3-8.2) g/dL Albumin 3.7 (3.5-5.0) g/dL Amylase 31 (30-110) U/L Lipase 70 (23-300) U/L HCG, Quant 6767.5 mIU/mL Urine Color Yellow Urine Appearance Cloudy H (Clear) Urine pH 6.5 (5.0-8.0) Ur Specific [place] 1.011 (1.001-1.035) Urine Protein Negative (Negative) Urine Glucose (UA) Negative (Negative) Urine Ketones Negative (Negative) Urine Blood Negative (Negative) Urine Nitrite Negative (Negative) Urine Bilirubin Negative (Negative) Urine Urobilinogen <2.0 (<2.0) mg/dL Ur Leukocyte Esterase Negative (Negative) Ur Squamous Epith Cells 5 H (0-4) /hpf Amorphous Sediment Moderate H (None) /hpf Urine Mucus Rare H (None) /hpf Disposition Clinical Impression: Abdominal pain in , Headache Disposition: HOME SELF-CARE Condition: Good Instructions: Abdominal Pain in (ED) Additional Instructions: Please use medication as discussed. Please follow-up with DIRECTOR MEDICAL WRITING/family doctor in the next 2 days of symptoms have not improved. Please return to emergency room if the symptoms increase or worsen or for any other concerns. Is patient prescribed a controlled substance at d/c from ED?: No Referrals: Jean-Pierre Orlando Jr, [Primary Care Provider] - 1-2 days Time of Disposition: 20:59
[2017-11-30 19:24] LABS: Basophils % (A) 0 %; Eosinophils # (A) 0.1 k/uL (0-0.7); Eosinophils % (A) 1 %; HCT 38.1 % (34.0-46.0); HGB 12.9 gm/dL (11.4-16.0); Lymphocytes # (A) 1.7 k/uL (1.0-4.8); Lymphocytes % (A) 22 %; MCHC 33.9 g/dL (31.0-37.0); MCV 82.5 fL (80.0-100.0); Mean Platelet Volume 6.5; Monocytes # (A) 0.4 k/uL (0-1.0); Monocytes % (A) 5 %; Neutrophils # (A) 5.3 k/uL (1.3-7.7); Neutrophils % (A) 71 %; Platelet Count 268 k/uL (150-450); RBC 4.62 m/uL (3.80-5.40); RDW 14.1 % (11.5-15.5); WBC 7.6 k/uL (3.8-10.6)
[2017-11-30 19:26] LABS: Amorphous Sediment,Urine Moderate /hpf; Appearance,Urine Cloudy (Clear); Bilirubin,Urine Negative (Negative); Blood,Urine Negative (Negative); Color,Urine Yellow; Glucose,Urine (UA) Negative (Negative); Ketones,Urine Negative (Negative); Leukocyte Esterase,Urine Negative (Negative); Mucus,Urine Rare /hpf; Nitrite,Urine Negative (Negative); PH, Urine 6.5 (5.0-8.0); Protein,Urine Negative (Negative); Specific Gravity,Urine 1.011 (1.001-1.035); Squamous Epithelial Cell,Urine 5 /hpf (0-4); Urobilinogen,Urine <2.0 mg/dL (<2.0)
[2017-11-30 19:37] LABS: ALT 23 U/L (9-52); AST 18 U/L (14-36); Albumin 3.7 g/dL (3.5-5.0); Alkaline Phosphatase 60 U/L (38-126); Amylase 31 U/L (30-110); Anion Gap 10 mmol/L; Blood Urea Nitrogen 8 mg/dL (7-17); Calcium 9.7 mg/dL (8.4-10.2); Carbon Dioxide 20 mmol/L (22-30); Chloride 108 mmol/L (98-107); Glucose 101 mg/dL (74-99); Lipase 70 U/L (23-300); Potassium 3.8 mmol/L (3.5-5.1); Sodium 138 mmol/L (137-145); Total Bilirubin 0.4 mg/dL (0.2-1.3); Total Protein 6.4 g/dL (6.3-8.2)
[2017-11-30 19:53] LABS: HCG,Quantitative Serum 6767.5 mIU/mL
[2017-11-30 21:13] VITALS: BP 117/58; PULSE 77; TEMP 98.6
== END 2017-11-30 21:13 | disposition home or self-care (01) ==
LOC: EC 18:18
DX: O26.892 Other specified pregnancy related conditions, second trimester (principal); R10.9 Unspecified abdominal pain; R51 Headache; O99.352 Diseases of the nervous system complicating pregnancy, second trimester; G40.909 Epilepsy, unspecified, not intractable, without status epilepticus; O99.332 Smoking (tobacco) complicating pregnancy, second trimester; F17.200 Nicotine dependence, unspecified, uncomplicated; Z3A.19 19 weeks gestation of pregnancy; Z79.899 Other long term (current) drug therapy; Z88.8 Allergy status to other drugs, medicaments and biological substances
CPT/HCPCS: 36415; 93005; 80053; 82150; 83690; 85025; 81001; 84702; 87086; 99284; 96365; 96375; J2765; J0131

== ENCOUNTER 2018-01-04 12:26 | Emergency (ER) | payer OTHER ==
[2018-01-04 12:48] VITALS: RESP 18
[2018-01-04] MEDS ORDERED: SODIUM CHLORIDE 0.9% 1,000 ML IV STA (13:27)
--- NOTE | 2018-01-04 14:07 | US ---
EXAMINATION TYPE: US abdomen limited DATE OF EXAM: 01/04/2018 COMPARISON: Previous study dated 10/25/2016. CLINICAL HISTORY: Pain. history of seizures, fell out of bed, left flank pain, attention spleen per o rder EXAM MEASUREMENTS: Spleen: 12.2 cm, wnl Left Kidney: 11.8 x 6.6 x 5.0cm, wnl No abnormality seen by ultrasound. IMPRESSION: NO SPLENIC OR RENAL LESION IS IDENTIFIED.
--- NOTE | 2018-01-04 14:08 | US ---
EXAMINATION TYPE: US OB >= 14 wk fetus DATE OF EXAM: 01/04/2018 COMPARISON: None CLINICAL HISTORY: Pain, history of seizures, pt fell out of bed, goes to high risk facility frequentl y for OB scans TECHNIQUE: Transabdominal (TA) GESTATIONAL AGE / DATING Physician Established: pt unsure Dates by Current Scan: (22 weeks/1 days) EDC: 05/09/2018 SURVEY IUP: Single PLACENTA: Anterior PREVIA: unable to evaluate with empty bladder SANTIAGO: 11.9 cm Normal CERVICAL LENGTH (transabdominal: norm > 3.0cm): 3.6 cm BIOMETRY PRESENTATION: Breech LIE: Oblique BPD: 5.2 cm 21 weeks / 5 days HC: 19.5 cm 21 weeks / 5 days AC: 17.5 cm 22 weeks / 3 days FL: 4.2 cm 23 weeks / 4 days ESTIMATED WEIGHT IN GRAMS: 531 grams ESTIMATED WEIGHT IN LBS/OZ: 1 lbs. 3 oz. WEIGHT PERCENTAGE BASED ON ESTABLISHED DATES: n/a HC/AC: 1.12 Normal FL/AC: 23 Normal HEART RATE: 157 bpm RHYTHM: Normal IMPRESSION: HUBER FETUS PRESENT IN A BREECH PRESENTATION WITH A GESTATIONAL AGE OF 22 WEEKS 1 DAY +/- 2 WEEKS . ESTIMATED DATE OF CONFINEMENT BASED ON THIS EXAMINATION IS 05/09/2018
[2018-01-04] MEDS ORDERED: ONDANSETRON 4 MG/2 ML VIAL IVP STA (14:17)
[2018-01-04 14:27] LABS: ALT 14 U/L (9-52); AST 17 U/L (14-36); Alkaline Phosphatase 75 U/L (38-126); Anion Gap 9 mmol/L; Blood Urea Nitrogen 8 mg/dL (7-17); Calcium 9.8 mg/dL (8.4-10.2); Carbon Dioxide 21 mmol/L (22-30); Chloride 108 mmol/L (98-107); Glucose 107 mg/dL (74-99); Potassium 3.9 mmol/L (3.5-5.1); Sodium 138 mmol/L (137-145); Total Bilirubin 0.5 mg/dL (0.2-1.3); Total Protein 6.8 g/dL (6.3-8.2)
[2018-01-04 14:31] LABS: Basophils % (A) 0 %; Eosinophils # (A) 0.1 k/uL (0-0.7); Eosinophils % (A) 1 %; HCT 39.4 % (34.0-46.0); Lymphocytes # (A) 1.5 k/uL (1.0-4.8); Lymphocytes % (A) 18 %; MCH 27.4 pg (25.0-35.0); MCHC 33.1 g/dL (31.0-37.0); MCV 82.9 fL (80.0-100.0); Mean Platelet Volume 6.8; Monocytes # (A) 0.4 k/uL (0-1.0); Monocytes % (A) 5 %; Neutrophils # (A) 6.6 k/uL (1.3-7.7); Neutrophils % (A) 75 %; Platelet Count 248 k/uL (150-450); RBC 4.75 m/uL (3.80-5.40); RDW 14.2 % (11.5-15.5); WBC 8.7 k/uL (3.8-10.6)
[2018-01-04 14:44] LABS: Appearance,Urine Cloudy (Clear); Bilirubin,Urine Negative (Negative); Blood,Urine Negative (Negative); Color,Urine Yellow; Glucose,Urine (UA) Negative (Negative); Ketones,Urine Negative (Negative); Leukocyte Esterase,Urine Negative (Negative); Mucus,Urine Rare /hpf; Nitrite,Urine Negative (Negative); Protein,Urine Trace (Negative); Specific Gravity,Urine 1.018 (1.001-1.035); Squamous Epithelial Cell,Urine 16 /hpf (0-4); Urobilinogen,Urine <2.0 mg/dL (<2.0); WBC,Urine 3 /hpf (0-5)
--- NOTE | 2018-01-04 14:50 | ED ---
Abdominal Pain HPI - General Chief Complaint: Abdominal Pain Stated Complaint: Seizure Time Seen by Provider: 01/04/18 12:56 Source: patient, RN notes reviewed Mode of arrival: ambulatory Limitations: no limitations - History of Present Illness Initial Comments: This is a 29-year-old female who is A1 currently 24 weeks presents emergency Department chief complaint abdominal pain, seizure. Patient states that she believes she had a seizure at home. Patient states that she does have a history and does see Dr. Moreno currently on Vimpat area and she did recently have increase of her medications. Patient states that she was in her bed she will use was last thing she can remember states that she woke up on her left side on the ground. She complains of left-sided abdominal pain, pressure or lower pelvic region. Patient denies any vaginal bleeding or vaginal discharge. Patient denies any head injury, headache or dizziness. She does feel slightly nauseated. Patient's daughter did arrive and states that she was still postictal but is improved at this time. Patient states she is high-risk secondary to placenta previa and advanced maternal age. Patient states that she did not contact her NET UI DEVELOPER prior arrival. Patient denies any dysuria or noted hematuria. Patient did take Tylenol prior arrival for discomfort. - Related Data Home Medications Medication Instructions Recorded Confirmed Lacosamide [Vimpat] 100 mg PO BID 09/13/17 09/13/17 Allergies Allergy/AdvReac Type Severity Reaction Status Date / Time prednisone Allergy Rash/Hives Verified 01/04/18 12:48 Review of Systems ROS Statement: Those systems with pertinent positive or pertinent negative responses have been documented in the HPI. ROS Other: All systems not noted in ROS Statement are negative. Past Medical History Past Medical History: Hypertension, Seizure Disorder Additional Past Medical History / Comment(s): knee pain, back pain, migraines History of Any Multi-Drug Resistant Organisms: None Reported Past Surgical History: Back Surgery, Orthopedic Surgery Additional Past Surgical History / Comment(s): D & C l knee Past Anesthesia/Blood Transfusion Reactions: No Reported Reaction Past Psychological History: Anxiety Smoking Status: Current every day smoker Past Alcohol Use History: None Reported Past Drug Use History: None Reported - Past Family History Mother History Unknown: Yes General Exam Limitations: no limitations General appearance: alert, in no apparent distress Head exam: Present: atraumatic, normocephalic, normal inspection Eye exam: Present: normal appearance, PERRL, EOMI. Absent: scleral icterus, conjunctival injection, periorbital swelling ENT exam: Present: normal exam, normal oropharynx, mucous membranes moist Neck exam: Present: normal inspection, full ROM. Absent: tenderness, meningismus, lymphadenopathy Respiratory exam: Present: normal lung sounds bilaterally. Absent: respiratory distress, wheezes, rales, rhonchi, stridor Cardiovascular Exam: Present: regular rate, normal rhythm, normal heart sounds. Absent: systolic murmur, diastolic murmur, rubs, gallop, clicks GI/Abdominal exam: Present: soft, tenderness (mild to moderate left-sided, lower pelvic region), normal bowel sounds. Absent: distended, guarding, rebound , rigid Back exam: Absent: CVA tenderness (R), CVA tenderness (L) Skin exam: Present: warm, dry, intact, normal color. Absent: rash Course Vital Signs 01/04/18 12:44 Temperature 98 F Pulse Rate 86 Respiratory 18 Rate Blood Pressure 127/84 O2 Sat by Pulse 99 Oximetry Medical Decision Making - Medical Decision Making 37-year-old female presents emergency department reported seizure. Patient does have a history is on current Vimpat and sees urologist on a regular basis. Patient complain of some abdominal pain with no vaginal bleeding or no vaginal discharge. Ultrasound was obtained of her upper quadrant and of baby no acute findings. Patient has been observed in emergency from for 3 hours with no increase in symptoms states his symptoms are abdominal pain aren't improving. I did contact her NET UI DEVELOPER in which the senior resident was covering his practice. They stated that as long as ultrasound was within normal limits and she has no vaginal bleeding that she may be discharged follow-up in office. I did convey this to the patient and she does have follow-up appointment. Return parameters were discussed. We did discuss that she cannot drive for 6 months and she be cleared by her neurologist. - Lab Data Result diagrams: 01/04/18 13:06 01/04/18 13:06 Lab Results 01/04/18 01/04/18 01/04/18 Range/Units 13:00 13:06 13:06 WBC 8.7 (3.8-10.6) k/uL RBC 4.75 (3.80-5.40) m/uL Hgb 13.0 (11.4-16.0) gm/dL Hct 39.4 (34.0-46.0) % MCV 82.9 (80.0-100.0) fL MCH 27.4 (25.0-35.0) pg MCHC 33.1 (31.0-37.0) g/dL RDW 14.2 (11.5-15.5) % Plt Count 248 (150-450) k/uL Neutrophils % 75 % Lymphocytes % 18 % Monocytes % 5 % Eosinophils % 1 % Basophils % 0 % Neutrophils # 6.6 (1.3-7.7) k/uL Lymphocytes # 1.5 (1.0-4.8) k/uL Monocytes # 0.4 (0-1.0) k/uL Eosinophils # 0.1 (0-0.7) k/uL Basophils # 0.0 (0-0.2) k/uL Sodium 138 (137-145) mmol/L Potassium 3.9 (3.5-5.1) mmol/L Chloride 108 H (98-107) mmol/L Carbon Dioxide 21 L (22-30) mmol/L Anion Gap 9 mmol/L BUN 8 (7-17) mg/dL Creatinine 0.48 L (0.52-1.04) mg/dL Est GFR (CKD-EPI)AfAm >90 (>60 ml/min/1.73 sqM) Est GFR (CKD-EPI)NonAf >90 (>60 ml/min/1.73 sqM) Glucose 107 H (74-99) mg/dL Calcium 9.8 (8.4-10.2) mg/dL Magnesium (1.6-2.3) mg/dL Total Bilirubin 0.5 (0.2-1.3) mg/dL AST 17 (14-36) U/L ALT 14 (9-52) U/L Alkaline Phosphatase 75 (38-126) U/L Total Protein 6.8 (6.3-8.2) g/dL Albumin 4.0 (3.5-5.0) g/dL Urine Color Yellow Urine Appearance Cloudy H (Clear) Urine pH 7.0 (5.0-8.0) Ur Specific [place] 1.018 (1.001-1.035) Urine Protein Trace H (Negative) Urine Glucose (UA) Negative (Negative) Urine Ketones Negative (Negative) Urine Blood Negative (Negative) Urine Nitrite Negative (Negative) Urine Bilirubin Negative (Negative) Urine Urobilinogen <2.0 (<2.0) mg/dL Ur Leukocyte Esterase Negative (Negative) Urine WBC 3 (0-5) /hpf Ur Squamous Epith Cells 16 H (0-4) /hpf Urine Mucus Rare H (None) /hpf 01/04/18 Range/Units 13:06 WBC (3.8-10.6) k/uL RBC (3.80-5.40) m/uL Hgb (11.4-16.0) gm/dL Hct (34.0-46.0) % MCV (80.0-100.0) fL MCH (25.0-35.0) pg MCHC (31.0-37.0) g/dL RDW (11.5-15.5) % Plt Count (150-450) k/uL Neutrophils % % Lymphocytes % % Monocytes % % Eosinophils % % Basophils % % Neutrophils # (1.3-7.7) k/uL Lymphocytes # (1.0-4.8) k/uL Monocytes # (0-1.0) k/uL Eosinophils # (0-0.7) k/uL Basophils # (0-0.2) k/uL Sodium (137-145) mmol/L Potassium (3.5-5.1) mmol/L Chloride (98-107) mmol/L Carbon Dioxide (22-30) mmol/L Anion Gap mmol/L BUN (7-17) mg/dL Creatinine (0.52-1.04) mg/dL Est GFR (CKD-EPI)AfAm (>60 ml/min/1.73 sqM) Est GFR (CKD-EPI)NonAf (>60 ml/min/1.73 sqM) Glucose (74-99) mg/dL Calcium (8.4-10.2) mg/dL Magnesium 1.8 (1.6-2.3) mg/dL Total Bilirubin (0.2-1.3) mg/dL AST (14-36) U/L ALT (9-52) U/L Alkaline Phosphatase (38-126) U/L Total Protein (6.3-8.2) g/dL Albumin (3.5-5.0) g/dL Urine Color Urine Appearance (Clear) Urine pH (5.0-8.0) Ur Specific [place] (1.001-1.035) Urine Protein (Negative) Urine Glucose (UA) (Negative) Urine Ketones (Negative) Urine Blood (Negative) Urine Nitrite (Negative) Urine Bilirubin (Negative) Urine Urobilinogen (<2.0) mg/dL Ur Leukocyte Esterase (Negative) Urine WBC (0-5) /hpf Ur Squamous Epith Cells (0-4) /hpf Urine Mucus (None) /hpf - EKG Data EKG Comments: EKG performed at 14:11 normal sinus rhythm with rate 82 WA 1:30 QRS 70 QT/QTC 364/425 inverted T-wave in 3 no other acute findings. Disposition Clinical Impression: Seizure, , Abdominal pain Disposition: HOME SELF-CARE Condition: Stable Instructions: Abdominal Pain in (ED) Additional Instructions: Please return to the Emergency Department if symptoms worsen or any other concerns. Is patient prescribed a controlled substance at d/c from ED?: No Referrals: Jean-Pierre Orlando Jr, [Primary Care Provider] - 1-2 days Time of Disposition: 15:28
[2018-01-04 15:38] VITALS: BP 110/56; PULSE 88; TEMP 98.8
== END 2018-01-04 15:36 | disposition home or self-care (01) ==
LOC: EC 12:26
DX: O99.352 Diseases of the nervous system complicating pregnancy, second trimester (principal); G40.909 Epilepsy, unspecified, not intractable, without status epilepticus; O99.89 Other specified diseases and conditions complicating pregnancy, childbirth and the puerperium; R10.2 Pelvic and perineal pain; R11.0 Nausea; O99.332 Smoking (tobacco) complicating pregnancy, second trimester; F17.200 Nicotine dependence, unspecified, uncomplicated; Z3A.24 24 weeks gestation of pregnancy; Z79.899 Other long term (current) drug therapy; Z88.0 Allergy status to penicillin
CPT/HCPCS: 36415; 80053; 83735; 85025; 81001; 76705; 76805; 99284; 96374; 96361 ×2; J2405

== ENCOUNTER → 2018-01-30 | Outpatient (CLI) | payer OTHER ==
[2018-01-30 10:43] LABS: HCT 37.6 % (34.0-46.0); HGB 12.4 gm/dL (11.4-16.0); MCH 27.4 pg (25.0-35.0); Mean Platelet Volume 6.5; Platelet Count 247 k/uL (150-450); RBC 4.52 m/uL (3.80-5.40); RDW 14.6 % (11.5-15.5); WBC 9.1 k/uL (3.8-10.6)
[2018-01-30 18:04] LABS: HIV 1 AB Non-Reactive (Non-Reactive); HIV AB P24 Non-Reactive (Non-Reactive); HIV P24 AG Non-Reactive (Non-Reactive)
== END ==
LOC: LABWHC1 08:59
PROVIDERS: ATTEND Obstetrics & Gynecology Maternal & Fetal Medicine
DX: O09.892 Supervision of other high risk pregnancies, second trimester (principal); O09.522 Supervision of elderly multigravida, second trimester; Z3A.00 Weeks of gestation of pregnancy not specified
CPT/HCPCS: 36415; 82950; 85027; 86780; 87390

== ENCOUNTER 2018-03-21 10:10 | Outpatient (CLI) | payer OTHER ==
[2018-03-21 11:01] VITALS: BP 111/70; PULSE 89; RESP 17; TEMP 97.8
--- NOTE | 2018-04-11 10:27 | P.MSEPDOC ---
Presenting Problems - Arrival Data Date of Arrival on Unit: 03/21/18 Time of Arrival on Unit: 10:10 Mode of Transport: Ambulatory - Complaint OB-Reason for Admission/Chief Complaint: NST Comment: pt here per order of dr taylor for bi-weekly nst, pt goes to see dr taylor for. weekly appts and recieves a nst while there, pt has a difficult time getting ride for. second nst so pt was told to come here for procedure, pt reports + fm, denies lof/vb,. denies contractions, pt reports elevated bps/ lindsay/ruq pain for last three weeks, dr taylor. is aware and pt was sent for lab tests and is sceduled for an u/s for ruq pain, pt is to follow up with dr taylor for those results, her next appt is saturday,. pt is seeing dr taylor for hx of seizures, pt also reports that she is gdm diet. controlled with a glucose reading of 87 prior to coming to triage Medical History - Information : 6 Para: 4 Term: 4 : 0 Abortions: Spontaneous or Elective: 1 Number of Living Children: 4 - Gestational Age Gestational Age by JORDAN (wks/days): 34 Weeks and 2 Days - History Complications: GDM, Smoker Review of Systems - Review of Systems Constitutional: No problems Breast: No problems ENT: No problems Cardiovascular: No problems Respiratory: No problems Gastrointestinal: No problems Genitourinary: No problems Musculoskeletal: No problems Skin: No problems Comment: pt has hx of seizures, denies seizure activity today Vital Signs - Temperature Temperature: 97.8 F Temperature Source: Oral - Pulse Right Brachial Pulse Rate: 89 Pulse Assessment Method: Automatic Cuff - Respirations Respiratory Rate: 17 Oxygen Delivery Method: Room Air O2 Sat by Pulse Oximetry: 99 - Blood Pressure Right Arm Blood Pressure: 111/70 Blood Pressure Mean: 83 Blood Pressure Source: Automatic Cuff - Comment Vital Signs Comment: initial bp reading was 138/86 Medical Screen Scoring (Pre) - Cervical Exam Dilation: Exam Deferred Effacement: Exam Deferred Membranes: Intact - Uterine Contractions Frequency: N/A Duration: N/A Intensity: N/A - Maternal Vital Signs Maternal Temperature: N/A Maternal Blood Pressure: N/A Signs of Preeclampsia: N/A Maternal Respirations: N/A - Pain Assessment Pain Scale Used: Numeric (1 - 10) Pain Intensity: 0 - Maternal Trauma Maternal Trauma: N/A - Assessment Baseline FHR: 145 Heart Rate - NICHD Category: Category I (Normal) = 0 NST: Reactive Position: N/A Station: N/A - Total Score Total Score (Pre): 0 - Level of Risk Level of Risk: Low (0-5) Physician Notification (Pre) - Physician Notified Physician Notified Date: 03/21/18 Physician Notified Time: 10:29 Physician/Practitioner Notifed:: Dr Mehta Spoke With: Dr Mehta New Order Received: Yes (dc home) Disposition - Disposition OB Disposition: Physician follow up in office, Discharge to home, Written follow up instructions reviewed Discharge Date: 03/21/18 Discharge Time: 10:45 I agree with the RN Medical Screening Exam: Yes Risk & Benefit of care provided described in d/c instruction: Yes Diagnosis: RELATED CONDITIONS, UNSPECIFIED, THIRD TRIMESTER
== END 2018-03-21 10:45 | disposition home or self-care (01) ==
LOC: FBPOP 10:10
PROVIDERS: ATTEND Obstetrics & Gynecology
DX: O26.93 Pregnancy related conditions, unspecified, third trimester (principal); Z3A.34 34 weeks gestation of pregnancy
CPT/HCPCS: 59025; G0463; 99213

== ENCOUNTER → 2018-03-21 | Outpatient (CLI) | payer OTHER ==
[2018-03-21 10:26] LABS: HCT 37.9 % (34.0-46.0); HGB 12.1 gm/dL (11.4-16.0); MCH 25.9 pg (25.0-35.0); MCHC 31.8 g/dL (31.0-37.0); MCV 81.6 fL (80.0-100.0); Mean Platelet Volume 6.8; Platelet Count 249 k/uL (150-450); Poikilocytosis Slight; RBC 4.65 m/uL (3.80-5.40); RDW 15.2 % (11.5-15.5); WBC 10.2 k/uL (3.8-10.6)
[2018-03-21 18:04] LABS: ALT 12 U/L (8-44); AST 17 U/L (13-35)
== END ==
LOC: LABWHC1 09:39
PROVIDERS: ATTEND Obstetrics & Gynecology Maternal & Fetal Medicine
DX: O09.523 Supervision of elderly multigravida, third trimester (principal); O24.410 Gestational diabetes mellitus in pregnancy, diet controlled; O09.893 Supervision of other high risk pregnancies, third trimester; Z3A.00 Weeks of gestation of pregnancy not specified
CPT/HCPCS: 36415; 84450; 84460; 85027

== ENCOUNTER 2018-04-02 04:45 | Outpatient (CLI) | payer OTHER ==
[2018-04-02 05:18] LABS: Glucose,Whole Blood 105 mg/dL (75-99)
[2018-04-02 06:40] VITALS: BP 122/72; PULSE 90; RESP 16; TEMP 96.9
--- NOTE | 2018-04-11 10:39 | P.MSEPDOC ---
Presenting Problems - Arrival Data Date of Arrival on Unit: 04/02/18 Time of Arrival on Unit: 04:46 Mode of Transport: Wheelchair - Complaint OB-Reason for Admission/Chief Complaint: Possible Onset of Labor Comment: 04/01/18 contractions every 4-5 minutes Medical History - Information : 6 Para: 4 Term: 4 : 0 Abortions: Spontaneous or Elective: 1 Number of Living Children: 4 - Gestational Age Gestational Age by JORDAN (wks/days): 36 Weeks and 0 Days - History Complications: GDM Review of Systems - Review of Systems Constitutional: No problems Breast: No problems ENT: No problems Cardiovascular: No problems Respiratory: No problems Gastrointestinal: No problems Genitourinary: No problems Musculoskeletal: No problems Neurological: No problems Skin: No problems Vital Signs - Temperature Temperature: 96.9 F Temperature Source: Temporal Artery Scan - Pulse Right Brachial Pulse Rate: 90 Pulse Assessment Method: Automatic Cuff - Respirations Respiratory Rate: 16 Oxygen Delivery Method: Room Air O2 Sat by Pulse Oximetry: 98 - Blood Pressure Right Arm Blood Pressure: 122/72 Blood Pressure Mean: 88 Blood Pressure Source: Automatic Cuff Medical Screen Scoring (Pre) - Cervical Exam Dilation: 0 cm = 0 Membranes: Intact - Uterine Contractions Frequency: > or = 36 weeks =2 Duration: > 40 seconds = 2 Intensity: N/A - Maternal Vital Signs Maternal Temperature: N/A Maternal Blood Pressure: N/A Signs of Preeclampsia: N/A Maternal Respirations: N/A - Pain Assessment Pain Location and Character: Lower, Back Pain Scale Used: Numeric (1 - 10) Pain Intensity: 6 Pain Management Goal: 0 Pain Description: *Acute, Cramping Pain Radiation Location: NONE Pain Frequency: Intermittent Pain Duration: 1 Pain Duration Units: Days Pain Behavior: Facial Grimacing, Vocalization Pain Aggravating Factors: Contractions Non-Pharmacological Interventions: Darkened Room, Position/Reposition - Maternal Trauma Maternal Trauma: N/A - Assessment Baseline FHR: 135 Heart Rate - NICHD Category: Category I (Normal) = 0 NST: Reactive Position: N/A Station: N/A - Total Score Total Score (Pre): 4 - Level of Risk Level of Risk: Low (0-5) Physician Notification (Pre) - Physician Notified Physician Notified Date: 04/02/18 Physician Notified Time: 05:25 Physician/Practitioner Notifed:: [id number] Spoke With: Dr. Mehta New Order Received: Yes - Notification Comment Comment: Notified Dr. Mehta of patients complaints of contractions every 3-4 minutes, cervical exam, amnisure and NST results. Patients usually follows with a high risk Dr. Dr. Mehta states patient can be discharged home and follow up with her regular provider. Disposition - Disposition OB Disposition: Physician follow up in office, Discharge to home, Written follow up instructions reviewed Discharge Date: 04/02/18 Discharge Time: 05:31 I agree with the RN Medical Screening Exam: Yes Risk & Benefit of care provided described in d/c instruction: Yes Diagnosis: FALSE LABOR BEFORE 37 COMPLETED WEEKS OF GEST, THIRD TRI Additional Diagnoses: O47.03
== END 2018-04-02 05:31 | disposition home or self-care (01) ==
LOC: FBPOP 04:45
PROVIDERS: ATTEND Obstetrics & Gynecology
DX: O47.03 False labor before 37 completed weeks of gestation, third trimester (principal); Z3A.36 36 weeks gestation of pregnancy
CPT/HCPCS: 59025; 84112; G0463; 99213

== ENCOUNTER → 2018-11-19 | Outpatient (CLI) | payer OTHER | END | disposition home or self-care (01) | LOC: LABWHC1 09:56 | PROVIDERS: ATTEND Psychiatry & Neurology Pain Medicine | DX: G40.909 Epilepsy, unspecified, not intractable, without status epilepticus (principal); Z51.81 Encounter for therapeutic drug level monitoring | CPT/HCPCS: 36415; 80175 ==

== ENCOUNTER 2019-02-08 14:33 | Emergency (ER) | payer OTHER ==
[2019-02-08] MEDS ORDERED: SODIUM CHLORIDE 0.9% 500 ML 500 ML IV ONE (14:44)
[2019-02-08 14:47] VITALS: RESP 18; TEMP 98.2
[2019-02-08 15:08] LABS: Basophils % (A) 0 %; Eosinophils # (A) 0.2 k/uL (0-0.7); Eosinophils % (A) 2 %; HCT 41.1 % (34.0-46.0); HGB 13.9 gm/dL (11.4-16.0); Lymphocytes # (A) 2.3 k/uL (1.0-4.8); Lymphocytes % (A) 28 %; MCH 28.2 pg (25.0-35.0); MCHC 33.8 g/dL (31.0-37.0); MCV 83.6 fL (80.0-100.0); Monocytes # (A) 0.3 k/uL (0-1.0); Monocytes % (A) 4 %; Neutrophils # (A) 5.4 k/uL (1.3-7.7); Neutrophils % (A) 66 %; Platelet Count 303 k/uL (150-450); RBC 4.92 m/uL (3.80-5.40); RDW 13.9 % (11.5-15.5); WBC 8.3 k/uL (3.8-10.6)
[2019-02-08 15:17] LABS: ALT 22 U/L (4-34); AST 27 U/L (14-36); African American GFR (CKD) >90 (>60 ml/min/1.73 sqM); Albumin 4.6 g/dL (3.5-5.0); Alkaline Phosphatase 96 U/L (38-126); Anion Gap 10 mmol/L; Blood Urea Nitrogen 9 mg/dL (7-17); Calcium 9.2 mg/dL (8.4-10.2); Carbon Dioxide 21 mmol/L (22-30); Chloride 109 mmol/L (98-107); Glucose 149 mg/dL (74-99); Non-African American GFR(CKD) >90 (>60 ml/min/1.73 sqM); Potassium 3.9 mmol/L (3.5-5.1); Sodium 140 mmol/L (137-145); Total Bilirubin 0.7 mg/dL (0.2-1.3); Total Protein 7.2 g/dL (6.3-8.2)
[2019-02-08] MEDS ORDERED: SODIUM CHLORIDE 0.9% 500 ML 500 ML IV STA (15:18)
[2019-02-08] MEDS ORDERED: MORPHINE SULFATE 4 MG/ML SYRINGE IVP STA (15:19)
--- NOTE | 2019-02-08 15:22 | ED ---
General Adult HPI - General Chief complaint: Urogenital Stated complaint: 10 wks , bleeding Time Seen by Provider: 02/08/19 14:37 Source: patient, RN notes reviewed Mode of arrival: ambulatory Limitations: no limitations - History of Present Illness Initial comments: 38-year-old female with a past medical history of seizure disorder, hyper tension presents to the emergency department for vaginal bleeding. Patient states she believes she is about 10 weeks . Patient's last menstrual period was 12/05/2018. Patient states that she found out she was 5 days ago. States that she started to have vaginal spotting 3 days ago. States that today it worsened and now she is bleeding heavily. Patient admits to cramping and lower back pain. 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 Guevara. She has not seen Dr. Guevara for this . Patient was due to get a tubal ligation on March 06.Patient has no other complaints at this time including shortness of breath, chest pain, nausea or vomiting, headache, or visual changes. - Related Data Home Medications Medication Instructions Recorded Confirmed Lacosamide [Vimpat] 200 mg PO BID 09/13/17 04/02/18 Allergies Allergy/AdvReac Type Severity Reaction Status Date / Time prednisone Allergy Rash/Hives Verified 02/08/19 14:46 Review of Systems ROS Statement: Those systems with pertinent positive or pertinent negative responses have been documented in the HPI. ROS Other: All systems not noted in ROS Statement are negative. Past Medical History Past Medical History: Hypertension, Seizure Disorder Additional Past Medical History / Comment(s): knee pain, back pain, migraines History of Any Multi-Drug Resistant Organisms: None Reported Past Surgical History: Back Surgery, Orthopedic Surgery Additional Past Surgical History / Comment(s): D & C l knee Past Anesthesia/Blood Transfusion Reactions: No Reported Reaction Past Psychological History: Anxiety Smoking Status: Never smoker Past Alcohol Use History: None Reported Past Drug Use History: None Reported - Past Family History Mother History Unknown: Yes General Exam Limitations: no limitations General appearance: alert, in no apparent distress Head exam: Present: atraumatic, normocephalic, normal inspection Eye exam: Present: normal appearance, PERRL, EOMI. Absent: scleral icterus, conjunctival injection, periorbital swelling ENT exam: Present: normal exam, mucous membranes moist Neck exam: Present: normal inspection. Absent: tenderness, meningismus, lymphadenopathy Respiratory exam: Present: normal lung sounds bilaterally. Absent: respiratory distress, wheezes, rales, rhonchi, stridor Cardiovascular Exam: Present: regular rate, normal rhythm, normal heart sounds. Absent: systolic murmur, diastolic murmur, rubs, gallop, clicks GI/Abdominal exam: Present: soft, normal bowel sounds. Absent: distended, tenderness, guarding, rebound, rigid External exam: Present: normal external exam. Absent: lesions, lacerations, ecchymosis Speculum exam: Present: vaginal bleeding. Absent: normal speculum exam, erythema, vaginal discharge, cervical discharge, foreign body, tissue (no tisssue in the cervix), laceration Course Vital Signs 02/08/19 02/08/19 14:44 15:14 Temperature 98.2 F Pulse Rate 127 H 98 Respiratory 18 18 Rate Blood Pressure 152/113 161/101 O2 Sat by Pulse 98 98 Oximetry Medical Decision Making - Medical Decision Making She initially tachycardic on presentation. Likely secondary to anxiety she was very upset. This did improve throughout her stay. CBC CMP unremarkable. Patient does have mild vaginal bleeding on exam. I was able to visualize the cervix and I do not see any tissue. Seems open at this time. HCG is 1000. Patient is O+ blood type, does not require RhoGAM. Ultrasound was obtained which shows no IUP seen at this time. Given clinical scenario it is likely that patient miscarried however hcg will be trended. Patient denies any lightheadedness or any other symptoms at this time. Patient sees Dr. Guevara. Dr. Montesinos spoke with Dr. Mata who is on-call with Dr. Guevara. She recommends repeat beta hCG in 2-3 days. Recommends following up later this week. If patient has any worsening symptoms she will return here to the emergency room department. Patient is comfortable with this plan. - Lab Data Result diagrams: 02/08/19 14:44 02/08/19 14:44 Lab Results 02/08/19 02/08/19 02/08/19 Range/Units 14:44 14:44 14:44 WBC 8.3 (3.8-10.6) k/uL RBC 4.92 (3.80-5.40) m/uL Hgb 13.9 (11.4-16.0) gm/dL Hct 41.1 (34.0-46.0) % MCV 83.6 (80.0-100.0) fL MCH 28.2 (25.0-35.0) pg MCHC 33.8 (31.0-37.0) g/dL RDW 13.9 (11.5-15.5) % Plt Count 303 (150-450) k/uL Neutrophils % 66 % Lymphocytes % 28 % Monocytes % 4 % Eosinophils % 2 % Basophils % 0 % Neutrophils # 5.4 (1.3-7.7) k/uL Lymphocytes # 2.3 (1.0-4.8) k/uL Monocytes # 0.3 (0-1.0) k/uL Eosinophils # 0.2 (0-0.7) k/uL Basophils # 0.0 (0-0.2) k/uL Sodium 140 (137-145) mmol/L Potassium 3.9 (3.5-5.1) mmol/L Chloride 109 H (98-107) mmol/L Carbon Dioxide 21 L (22-30) mmol/L Anion Gap 10 mmol/L BUN 9 (7-17) mg/dL Creatinine 0.63 (0.52-1.04) mg/dL Est GFR (CKD-EPI)AfAm >90 (>60 ml/min/1.73 sqM) Est GFR (CKD-EPI)NonAf >90 (>60 ml/min/1.73 sqM) Glucose 149 H (74-99) mg/dL Calcium 9.2 (8.4-10.2) mg/dL Total Bilirubin 0.7 (0.2-1.3) mg/dL AST 27 (14-36) U/L ALT 22 (4-34) U/L Alkaline Phosphatase 96 (38-126) U/L Total Protein 7.2 (6.3-8.2) g/dL Albumin 4.6 (3.5-5.0) g/dL HCG, Quant 1089.8 mIU/mL Urine Color Urine Appearance (Clear) Urine pH (5.0-8.0) Ur Specific [place] (1.001-1.035) Urine Protein (Negative) Urine Glucose (UA) (Negative) Urine Ketones (Negative) Urine Blood (Negative) Urine Nitrite (Negative) Urine Bilirubin (Negative) Urine Urobilinogen (<2.0) mg/dL Ur Leukocyte Esterase (Negative) Urine RBC (0-5) /hpf Urine WBC (0-5) /hpf Ur Squamous Epith Cells (0-4) /hpf Urine Mucus (None) /hpf Blood Type O Positive Blood Type Recheck O Pos Bld Type Recheck Status No Antibody Screen NEGATIVE Spec Expiration Date 02/11/2019 - 234302/08/19 Range/Units 16:35 WBC (3.8-10.6) k/uL RBC (3.80-5.40) m/uL Hgb (11.4-16.0) gm/dL Hct (34.0-46.0) % MCV (80.0-100.0) fL MCH (25.0-35.0) pg MCHC (31.0-37.0) g/dL RDW (11.5-15.5) % Plt Count (150-450) k/uL Neutrophils % % Lymphocytes % % Monocytes % % Eosinophils % % Basophils % % Neutrophils # (1.3-7.7) k/uL Lymphocytes # (1.0-4.8) k/uL Monocytes # (0-1.0) k/uL Eosinophils # (0-0.7) k/uL Basophils # (0-0.2) k/uL Sodium (137-145) mmol/L Potassium (3.5-5.1) mmol/L Chloride (98-107) mmol/L Carbon Dioxide (22-30) mmol/L Anion Gap mmol/L BUN (7-17) mg/dL Creatinine (0.52-1.04) mg/dL Est GFR (CKD-EPI)AfAm (>60 ml/min/1.73 sqM) Est GFR (CKD-EPI)NonAf (>60 ml/min/1.73 sqM) Glucose (74-99) mg/dL Calcium (8.4-10.2) mg/dL Total Bilirubin (0.2-1.3) mg/dL AST (14-36) U/L ALT (4-34) U/L Alkaline Phosphatase (38-126) U/L Total Protein (6.3-8.2) g/dL Albumin (3.5-5.0) g/dL HCG, Quant mIU/mL Urine Color Yellow Urine Appearance Clear (Clear) Urine pH 6.5 (5.0-8.0) Ur Specific [place] 1.012 (1.001-1.035) Urine Protein Negative (Negative) Urine Glucose (UA) Negative (Negative) Urine Ketones Negative (Negative) Urine Blood Moderate H (Negative) Urine Nitrite Negative (Negative) Urine Bilirubin Negative (Negative) Urine Urobilinogen <2.0 (<2.0) mg/dL Ur Leukocyte Esterase Negative (Negative) Urine RBC >182 H (0-5) /hpf Urine WBC 1 (0-5) /hpf Ur Squamous Epith Cells 1 (0-4) /hpf Urine Mucus Rare H (None) /hpf Blood Type Blood Type Recheck Bld Type Recheck Status Antibody Screen Spec Expiration Date Disposition Clinical Impression: Vaginal bleeding, Threatened miscarriage Disposition: HOME SELF-CARE Condition: Good Instructions (If sedation given, give patient instructions): Threatened Miscarriage (ED) Additional Instructions: Please repeat blood work in 2-3 days. Please follow-up with Dr. Guevara later this week. Please return to the emergency department if you have any worsening symptoms such as worsening bleeding or lightheadedness. Is patient prescribed a controlled substance at d/c from ED?: No Referrals: Jean-Pierre Orlando Jr, DO [Primary Care Provider] - 1-2 days Time of Disposition: 17:04
[2019-02-08 15:33] LABS: HCG,Quantitative Serum 1089.8 mIU/mL
--- NOTE | 2019-02-08 16:07 | US ---
EXAMINATION TYPE: Transabdominal DATE OF EXAM: 02/08/2019 3:51 PM COMPARISON: NONE CLINICAL HISTORY: possible miscarriage, patient has heavy bleeding and is passing large clots, no john or ultrasound, been bleeding for 3 days EXAM PERFORMED: Transabdominal (TA) EXAM MEASUREMENTS: GESTATIONAL AGE / DATING Physician Established: Not yet established Dates by LMP: (9 weeks/2 days) EDC: 09/11/19 Dates by First Scan: No previous this is first scan Dates by Current Scan for: Unable to date by today's study MATERNAL ANATOMY Uterus: 9.1 x 4.8 x 6.9cm Right Ovary: 2.4 x 2.0 x 1.9cm Left Ovary: 3.4 x 1.8 x 2.7cm Post CDS / Adnexa: wnl Presence of free fluid: no GESTATION / SURVEY No IUP seen at this time. Endometrium thickened. Date of LMP: 12/05/18 Beta HcG (if available): Not available at this time Anteverted uterus. Endometrial stripe not well seen. It measures roughly 11 mm in thickness towards e nd of study No gestational sac, yolk sac, or pole identified. No free fluid in pelvic cul-de-sa c. Both ovaries are seen without concerning extraovarian adnexal mass. IMPRESSION: As above, findings need to be correlated clinically and with beta hCG values. Differentia l includes spontaneous versus too early to visualize intrauterine , ectopic pregnan cy is not entirely excluded. Consider follow-up based on correlation.
[2019-02-08] MEDS ORDERED: ACET/COD 300 MG/30 MG STARTER PACK 6 TAB BTL PO STA (17:07)
[2019-02-08 17:11] LABS: Appearance,Urine Clear (Clear); Bilirubin,Urine Negative (Negative); Blood,Urine Moderate (Negative); Color,Urine Yellow; Glucose,Urine (UA) Negative (Negative); Ketones,Urine Negative (Negative); Leukocyte Esterase,Urine Negative (Negative); Mucus,Urine Rare /hpf; Nitrite,Urine Negative (Negative); PH, Urine 6.5 (5.0-8.0); Protein,Urine Negative (Negative); RBC,Urine >182 /hpf (0-5); Specific Gravity,Urine 1.012 (1.001-1.035); Squamous Epithelial Cell,Urine 1 /hpf (0-4); Urobilinogen,Urine <2.0 mg/dL (<2.0); WBC,Urine 1 /hpf (0-5)
[2019-02-08 17:30] VITALS: BP 139/88; PULSE 78
== END 2019-02-08 17:30 | disposition home or self-care (01) ==
LOC: EC 14:33
DX: O20.0 Threatened abortion (principal); F41.9 Anxiety disorder, unspecified; G40.909 Epilepsy, unspecified, not intractable, without status epilepticus; I10 Essential (primary) hypertension; Z79.899 Other long term (current) drug therapy; Z88.8 Allergy status to other drugs, medicaments and biological substances; Z3A.10 10 weeks gestation of pregnancy
CPT/HCPCS: 36415; 86900; 86901; 80053; 85025; 86850; 81001; 84702; 76801; 96374; 96361 ×2; 99284; J2270

== ENCOUNTER → 2019-03-06 | Day surgery (SDC) | payer OTHER ==
[2019-03-04 10:44] VITALS: BMI 35.5
[~2019-03-06] MED LIST: Acetaminophen-Codeine 300-30mg TAB PO ONE; BUPIVACAINE (PF) 0.25% 30 ML VIAL SQ ONE; DEXAMETHASONE SOD PHOSPHATE 10 MG/ML 1 ML VIAL IV ONE; GLYCOPYRROLATE 0.2 MG/ML 2 ML VIAL ONE; KETOROLAC 30 MG/ML 1 ML VIAL ONE; LACTATED RINGERS 1,000 ML IV SCH; LIDOCAINE 1% (10MG/ML) FOR IV START INTRADERMA PRN; LIDOCAINE 1% INJ 10MG/ML (20 ML MDV) ONE; MIDAZOLAM 2 MG/2 ML VIAL IV ONE; MIDAZOLAM 2 MG/2 ML VIAL ONE; NEOSTIGMINE 1 MG/ML 10 ML VIAL ONE; ONDANSETRON 4 MG/2 ML VIAL IVP ONE; PROPOFOL 10 MG/ML 20 ML VIAL IV ONE; Pre Op ABX Message 1 EACH MISC MISCELLANE ONE; ROCURONIUM BROMIDE 10 MG/ML 5 ML VIAL IV ONE; diphenhydrAMINE 50 MG/ML 1 ML VIAL IVP ONE; fentaNYL (PF) 50 MCG/ML 2 ML AMP IV PRN; fentaNYL (PF) 50 MCG/ML 2 ML AMP ONE
--- NOTE | 2019-03-06 08:14 | P.HPOB ---
History of Present Illness H&P Date: 03/06/19 Chief Complaint: FAmily Planning 38 year old Presents for laparoscopic tubal ligation. Review of Systems All systems: negative Constitutional: Denies chills, Denies fever Eyes: denies blurred vision, denies pain Ears, nose, mouth and throat: Denies headache, Denies sore throat Cardiovascular: Denies chest pain, Denies shortness of breath Respiratory: Denies cough Gastrointestinal: Denies abdominal pain, Denies diarrhea, Denies nausea, Denies vomiting Genitourinary: Denies dysuria, Denies hematuria Musculoskeletal: Denies myalgias Integumentary: Denies pruritus, Denies rash Neurological: Denies numbness, Denies weakness Psychiatric: Denies anxiety, Denies depression Endocrine: Denies fatigue, Denies weight change Past Medical History Past Medical History: Seizure Disorder Additional Past Medical History / Comment(s): migraines, last seizure couple weeks ago. recent miscarriage 02/05. has VNS stimulator in chest pt states is off History of Any Multi-Drug Resistant Organisms: None Reported Past Surgical History: Back Surgery, Orthopedic Surgery Additional Past Surgical History / Comment(s): D & C, l knee acl and meniscus repair Past Anesthesia/Blood Transfusion Reactions: No Reported Reaction Past Psychological History: Anxiety Smoking Status: Current every day smoker Past Alcohol Use History: None Reported Additional Past Alcohol Use History / Comment(s): smoker on and off since age 16, 4cig/day Past Drug Use History: None Reported - Past Family History Mother History Unknown: Yes Medications and Allergies Home Medications Medication Instructions Recorded Confirmed Type Lacosamide [Vimpat] 200 mg PO BID 09/13/17 03/06/19 History lamoTRIgine [LaMICtal] 150 mg PO BID 03/04/19 03/06/19 History Allergies Allergy/AdvReac Type Severity Reaction Status Date / Time prednisone Allergy Rash/Hives Verified 03/06/19 07:21 Exam Osteopathic Statement: *. No significant issues noted on an osteopathic structural exam other than those noted in the History and Physical/Consult. Vital Signs Temp Pulse Resp BP Pulse Ox 03/06/19 07:18 97 F L 83 16 138/79 98 Intake and Output 03/05/19 03/06/19 03/06/19 22:59 06:59 14:59 Intake Total 0 Balance 0 Intake: IV 0 Other: Weight 79.9 kg Heart: Regular rate and rhythm Lungs: Clear to auscultation bilaterally Abdomen: Soft, nontender Extremities: Negative Homans sign Assessment and Plan (1) Family planning Current Visit: Yes Status: Acute Code(s): Z30.09 - ENCOUNTER FOR OTH GENERAL CNSL AND ADVICE ON CONTRACEPTION SNOMED Code(s): 544753987 Plan: 1. laparoscopic tubal ligation
[2019-03-06] MEDS: HYDROmorphone 0.5 MG/0.5 ML SYRINGE IVP PRN ×6 (09:10→09:45)
[2019-03-06 09:32] VITALS: TEMP 97.1
[2019-03-06 10:55] VITALS: RESP 16
[2019-03-06 10:59] VITALS: BP 116/77; PULSE 65
--- NOTE | 2019-03-11 08:20 | P.OP ---
Date of Procedure: 03/06/19 Preoperative Diagnosis: 1. Family planning Postoperative Diagnosis: 1. Family planning Procedure(s) Performed: Laparoscopic tubal ligation Anesthesia: FCO Surgeon: Mabel Guevara Estimated Blood Loss (ml): 2 Urine output (ml): 30 Pathology: none sent Condition: stable Disposition: floor Description of Procedure: Patient was taken to the operating room where general anesthesia was obtained without difficulty. She was prepped and draped in normal sterile fashion in the dorsal lithotomy position, legs placed in the Jeremy stirrups. Bladder drained of all urine. [place] speculum placed in the vagina and the anterior lip the cervix was grasped with single-tooth tenaculum. The uterus is sounded to 7 cm and the kroner manipulator was placed. Attention was then turned to the abdomen and gloves were changed. A 10 mm infraumbilical incision was made the scalpel and 10 mm optical trocar was placed under direct visualization. A 5 mm suprapubic Incision was made and a 5 mm optical trocar was placed under direct visualization. Survey of the pelvis revealed normal uterus tubes and ovaries. The left fallopian tube was grasped with a Kleppinger and fulgurated 2-3 cm on this side in the ampullar portion. The right fallopian tube was grasped with a Kleppinger and fulgurated 2-3 cm in the ampullar portion. All instruments were then removed from the abdomen and vagina. The 10 mm infraumbilical incision was closed with 0 Vicryl and the fascial layer and then 4-0 Vicryl in a subcuticular fashion. The 5 mm incision was closed with 4-0 Vicryl in a subcuticular fashion. Patient tolerated procedure well, sponge and instrument counts correct 2 and she was taken to recovery room in stable condition.
== END | disposition home or self-care (01) ==
LOC: OR 06:52
PROVIDERS: ATTEND Obstetrics & Gynecology
DX: Z30.2 Encounter for sterilization (principal); G43.909 Migraine, unspecified, not intractable, without status migrainosus; F41.9 Anxiety disorder, unspecified; G40.909 Epilepsy, unspecified, not intractable, without status epilepticus; F17.210 Nicotine dependence, cigarettes, uncomplicated; K21.9 Gastro-esophageal reflux disease without esophagitis; Z98.890 Other specified postprocedural states; Z79.899 Other long term (current) drug therapy; Z88.8 Allergy status to other drugs, medicaments and biological substances; Z96.82 Presence of neurostimulator
CPT/HCPCS: 81025; 58670; J2250; J1200; J2710; J2405; J2001; J3010; J1885; J2704; J1170

== ENCOUNTER → 2019-03-17 | Outpatient (CLI) | payer OTHER | END | disposition home or self-care (01) | LOC: LABWHC1 11:54 | PROVIDERS: ATTEND Psychiatry & Neurology Pain Medicine | DX: Z51.81 Encounter for therapeutic drug level monitoring (principal) | CPT/HCPCS: 36415; 80175 ==

== ENCOUNTER 2019-09-07 18:44 | Emergency (ER) | payer OTHER ==
--- NOTE | 2019-09-07 19:48 | XR ---
EXAMINATION TYPE: XR finger LT DATE OF EXAM: 09/07/2019 COMPARISON: NONE HISTORY: Infection for 20 days in the middle finger TECHNIQUE: 3 views FINDINGS: I see no fracture nor dislocation. Joint spaces appear normal. The middle finger appears in tact. There is no sign of a foreign body. IMPRESSION: Negative exam. No sign of osteomyelitis. No fracture.
--- NOTE | 2019-09-07 21:02 | ED ---
General Adult HPI - General Source: patient, RN notes reviewed, old records reviewed Mode of arrival: ambulatory Limitations: no limitations <Clifton Peacock - Last Filed: 09/07/19 22:59> <Za Bond - Last Filed: 09/08/19 16:23> - General Chief complaint: Extremity Injury, Upper Stated complaint: Right hand infection Time Seen by Provider: 09/07/19 19:15 - History of Present Illness Initial comments: 39-year-old female patient presents ED chief complaint of pain in the distal aspect of the third digit on her right hand for the last 2 weeks. Patient reports that he started as a small vesicle and now has increased in size around the tip of her finger. Patient was that she is having pain throughout her finger. She denies any trauma or any pain turning, the area. Denies any fevers or systemic complaints. Pt completed 10 days of bactrim by pcp. Denies any chance of being due to tubal ligation. Systemic: Pt denies fatigue, fever/chills, rash. Pt denies weakness, night sweats, weight loss. Neuro: Pt denies headache, visual disturbances, syncope or pre-syncope. HEENT: Pt denies ocular discharge or irritation, otalgia, rhinorrhea, pharyngitis or notable lymphadenopathy. Cardiopulmonary: Pt denies chest pain, SOB, heart palpitations, dyspnea on exertion. Abdominal/GI: Pt denies abdominal pain, n/v/d. : Pt denies dysuria, burning w/ urination, frequency/urgency. Denies new onset urinary or bowel incontinence. MSK: Pt denies myalgia, loss of strength or function in extremities. Neuro: Pt denies new onset weakness, paresthesias. (Clifton Peacock) - Related Data Home Medications Medication Instructions Recorded Confirmed Lacosamide [Vimpat] 200 mg PO BID 09/13/17 09/08/19 lamoTRIgine [LaMICtal] 150 mg PO BID 03/04/19 09/08/19 ALPRAZolam [Xanax] 0.5 mg PO BID 09/08/19 09/08/19 Previous Rx's Medication Instructions Recorded Acyclovir [Zovirax] 1 applic TOPICAL 5XD #5 gm 09/08/19 Ketorolac [Toradol] 10 mg PO Q6HR PRN #20 tab 09/08/19 Pantoprazole [Protonix] 40 mg PO PREET-BRKFST #10 tablet. 09/08/19 Pregabalin [Lyrica] 75 mg PO BID 3 Days #6 cap 09/08/19 valACYclovir [Valtrex] 1,000 mg PO TID 7 Days #42 tab 09/08/19 Allergies Allergy/AdvReac Type Severity Reaction Status Date / Time prednisone AdvReac Rash/Hives Verified 09/08/19 07:38 vancomycin [From Vancocin] AdvReac Rash/Hives Verified 09/08/19 07:38 Review of Systems ROS Other: All systems not noted in ROS Statement are negative. <Clifton Peacock - Last Filed: 09/07/19 22:59> ROS Other: All systems not noted in ROS Statement are negative. <Za Bond - Last Filed: 09/08/19 16:23> ROS Statement: Those systems with pertinent positive or pertinent negative responses have been documented in the HPI. Past Medical History Past Medical History: Hypertension, Seizure Disorder Additional Past Medical History / Comment(s): knee pain, back pain, migraines History of Any Multi-Drug Resistant Organisms: None Reported Past Surgical History: Back Surgery, Orthopedic Surgery Additional Past Surgical History / Comment(s): D & C l knee Past Anesthesia/Blood Transfusion Reactions: No Reported Reaction Past Psychological History: Anxiety Smoking Status: Current every day smoker Past Alcohol Use History: None Reported Past Drug Use History: None Reported - Past Family History Mother History Unknown: Yes <Clifton Peacock - Last Filed: 09/07/19 22:59> General Exam Limitations: no limitations <Clifton Peacock - Last Filed: 09/07/19 22:59> - General Exam Comments Initial Comments: Constitutional: NAD, AOX3, Pt has pleasant affect. HEENT: NC/AT, trachea midline, neck supple, no lymphadenopathy. External ears appear normal, without discharge. Mucous membranes moist. Eyes PERRLA, EOM intact. There is no scleral icterus. No pallor noted. Cardiopulmonary: RRR, no murmurs, rubs or gallops, no JVD noted. Lungs CTAB in anterior and posterior baires. No peripheral edema. Abdominal exam: Abdomen soft and non-distended. Abdomen non-tender to palpation in all 4 quadrants. Bowel sounds active in LLQ. No hepatosplenomegaly. No ecchymosis Neuro: CN II-XII grossly intact. No nuchal rigidity. No raccon eyes, no english sign, no hemotympanum. No cervical spinal tenderness. MSK: Small crusted scab on distal aspect of third digit approximately 1.5cm. Tender to palpation no erythema or streaking. Full active ROM of digit. No proximal flexor sheath tenderness. Capillary refill <2 seconds. (Clifton Peacock) Course Vital Signs 09/07/19 09/07/19 18:50 21:11 Temperature 97.7 F 98 F Pulse Rate 76 83 Respiratory 18 16 Rate Blood Pressure 153/84 142/90 O2 Sat by Pulse 98 98 Oximetry Medical Decision Making <Clifton Peacock - Last Filed: 09/07/19 22:59> <Za Bond - Last Filed: 09/08/19 16:23> - Medical Decision Making 39-year-old female patient presents ED chief complaint of pain in the distal aspect of the third digit on her right hand for the last 2 weeks. Patient reports that he started as a small vesicle and now has increased in size around the tip of her finger. Patient was that she is having pain throughout her finger. She denies any trauma or any pain turning, the area. Denies any fevers or systemic complaints. Pt completed 10 days of bactrim by pcp. Denies any chance of being due to tubal ligation. Patient felt into stable, afebrile. Physical exam displayed: Small crusted scab on distal aspect of third digit approximately 1.5cm. Tender to palpation no erythema or streaking. Full active ROM of digit. No proximal flexor sheath tenderness. Capillary refill <2 seconds. Patient was offered admission which she declined. she states that she will return after she can find child custody evaluator, patient is discharged with antibiotics. Also given name of an orthopedist. Case discussed the patient seen by Dr. Bond. (Clifton Peacock) I was available for consultation in the emergency department. The history and physical exam were done by the midlevel provider. I was consulted for this patients care. I reviewed the case with the midlevel provider and based on their presentation of the patient, I agree with the assessment, medical decision making and plan of care as documented. Patient evaluated by myself. Lesion appears to be herpetic antoine with possible secondary bacterial infection. Patient will be switched to keflex. Follow up with orthopedics for re- evaluation. Return to the ED should she have no improvement. No signs of tenosynovitis Chart was dictated using [employer] dictation software. Attempts were made to correct any dictation errors however some typographical errors may persist. (Za Bond) Disposition Is patient prescribed a controlled substance at d/c from ED?: No <Clifton Peacock - Last Filed: 09/07/19 22:59> <Za Bond - Last Filed: 09/08/19 16:23> Clinical Impression: Finger infection Disposition: HOME SELF-CARE Condition: Stable Instructions (If sedation given, give patient instructions): Cellulitis (ED) Additional Instructions: Take antibiotics as directed. Follow up with orthopedist and primary care provider tomorrow. Return to ER if condition worsens. Referrals: Jean-Pierre Orlando Jr, DO [Primary Care Provider] - 1-2 days Harley Justice DO [Doctor of Osteopathic Medicine] - 1-2 days
[2019-09-07 21:11] VITALS: BP 142/90; PULSE 83; RESP 16; TEMP 98
[2019-09-07] MEDS ORDERED: CEPHALEXIN 500MG STARTER PACK 4 CAP BTL PO STA (21:11)
== END 2019-09-07 21:15 | disposition home or self-care (01) ==
LOC: EC 18:44
DX: L08.9 Local infection of the skin and subcutaneous tissue, unspecified (principal); G43.909 Migraine, unspecified, not intractable, without status migrainosus; G40.909 Epilepsy, unspecified, not intractable, without status epilepticus; F17.200 Nicotine dependence, unspecified, uncomplicated; Z79.899 Other long term (current) drug therapy; Z88.8 Allergy status to other drugs, medicaments and biological substances
CPT/HCPCS: 99284

== ENCOUNTER 2019-09-07 23:20 | Observation (INO) | payer OTHER ==
--- NOTE | 2019-09-07 23:46 | ED ---
Recheck HPI - General Chief Complaint: Recheck/Abnormal Lab/Rx Stated Complaint: Hand Infection Time Seen by Provider: 09/07/19 23:30 Source: patient, RN notes reviewed, old records reviewed Mode of arrival: ambulatory Limitations: no limitations - History of Present Illness Initial Comments: This is a 39-year-old female DF for evaluation patient presents here for evaluation of worsening finger pain. Severe finger pain. Symptoms going on for a week me about getting worse. She is on antibiotics with worsening symptoms. No fevers no pain is just severe and severely worsening starting to have discoloration of finger patient wrestling noticed a vesicle on the right middle finger that is changed into more of skin degradation pain in the area increasing in size MD Complaint: wound re-check -: days(s) Initial Visit For: cellulitis, abscess Returns Today for: wound recheck Symptoms Since Prior Visit: worsening pain, worsening swelling, worsening redness Context: planned re-check Associated Symptoms: none - Related Data Home Medications Medication Instructions Recorded Confirmed Lacosamide [Vimpat] 200 mg PO BID 09/13/17 09/08/19 lamoTRIgine [LaMICtal] 150 mg PO BID 03/04/19 09/08/19 ALPRAZolam [Xanax] 0.5 mg PO BID 09/08/19 09/08/19 Previous Rx's Medication Instructions Recorded Acyclovir [Zovirax] 1 applic TOPICAL 5XD #5 gm 09/08/19 Ketorolac [Toradol] 10 mg PO Q6HR PRN #20 tab 09/08/19 Pantoprazole [Protonix] 40 mg PO AC-BRKFST #10 tablet. 09/08/19 Pregabalin [Lyrica] 75 mg PO BID 3 Days #6 cap 09/08/19 valACYclovir [Valtrex] 1,000 mg PO TID 7 Days #42 tab 09/08/19 Allergies Allergy/AdvReac Type Severity Reaction Status Date / Time prednisone AdvReac Rash/Hives Verified 09/08/19 07:38 vancomycin [From Vancocin] AdvReac Rash/Hives Verified 09/08/19 07:38 Review of Systems ROS Statement: Those systems with pertinent positive or pertinent negative responses have been documented in the HPI. ROS Other: All systems not noted in ROS Statement are negative. Past Medical History Past Medical History: Hypertension, Seizure Disorder Additional Past Medical History / Comment(s): knee pain, back pain, migraines History of Any Multi-Drug Resistant Organisms: None Reported Past Surgical History: Back Surgery, Orthopedic Surgery Additional Past Surgical History / Comment(s): D & C l knee Past Anesthesia/Blood Transfusion Reactions: No Reported Reaction Past Psychological History: Anxiety Smoking Status: Current every day smoker Past Alcohol Use History: None Reported Past Drug Use History: None Reported - Past Family History Mother History Unknown: Yes General Exam Limitations: no limitations General appearance: alert, in no apparent distress Head exam: Present: atraumatic, normocephalic, normal inspection Eye exam: Present: normal appearance, PERRL, EOMI. Absent: scleral icterus, conjunctival injection, periorbital swelling ENT exam: Present: normal exam, mucous membranes moist Neck exam: Present: normal inspection. Absent: tenderness, meningismus, lymphadenopathy Respiratory exam: Present: normal lung sounds bilaterally. Absent: respiratory distress, wheezes, rales, rhonchi, stridor Cardiovascular Exam: Present: regular rate, normal rhythm, normal heart sounds. Absent: systolic murmur, diastolic murmur, rubs, gallop, clicks GI/Abdominal exam: Present: soft, normal bowel sounds. Absent: distended, tenderness, guarding, rebound, rigid Extremities exam: Present: normal inspection, full ROM, normal capillary refill. Absent: tenderness, pedal edema, joint swelling, calf tenderness Back exam: Present: normal inspection Neurological exam: Present: alert, oriented X3, CN II-XII intact Psychiatric exam: Present: normal affect, normal mood Skin exam: Present: warm, dry, intact, normal color. Absent: rash Course Vital Signs 09/07/19 23:22 Temperature 97.8 F Pulse Rate 87 Respiratory 16 Rate Blood Pressure 142/88 O2 Sat by Pulse 99 Oximetry - Reevaluation(s) Reevaluation #1: Medical record is reviewed Patient has no changes in pain swelling severe pain in that finger ER visit today is reviewed patient informed of results, treatment plan - Consultations Consultation #1: Spoke with Dr. Negrete agrees to keep patient overnight Medical Decision Making - Medical Decision Making 3-year-old female DF for evaluation patient is appears finger pain right middle finger pain suspect history herpetic antoine admitted for pain control and IV an tibiotics - Lab Data Result diagrams: 09/08/19 00:15 09/08/19 00:15 Disposition Clinical Impression: Finger infection, Herpetic antoine, Cellulitis Disposition: ADMITTED IP TO THIS HOSP Condition: Good Is patient prescribed a controlled substance at d/c from ED?: No
[2019-09-07] MEDS ORDERED: SODIUM CHLORIDE 0.9% 1,000 ML IV ONE (23:59)
[2019-09-07] MEDS ORDERED: SODIUM CHLORIDE 0.9% 1,000 ML IV STA (23:59)
[2019-09-07] MEDS ORDERED: MORPHINE SULFATE 4 MG/ML SYRINGE IV STA (23:59)
[2019-09-08] MEDS ORDERED: VANCOMYCIN IV PER PHARMACY 1 EACH MISC MISCELLANE PRN (00:01)
[2019-09-08 00:30] LABS: Basophils % (A) 0 %; Eosinophils # (A) 0.2 k/uL (0-0.7); Eosinophils % (A) 3 %; HCT 44.3 % (34.0-46.0); HGB 14.4 gm/dL (11.4-16.0); Lymphocytes # (A) 2.3 k/uL (1.0-4.8); Lymphocytes % (A) 34 %; MCH 27.3 pg (25.0-35.0); MCHC 32.6 g/dL (31.0-37.0); MCV 83.8 fL (80.0-100.0); Mean Platelet Volume 7.1; Monocytes # (A) 0.3 k/uL (0-1.0); Monocytes % (A) 5 %; Neutrophils % (A) 57 %; Platelet Count 254 k/uL (150-450); RBC 5.29 m/uL (3.80-5.40); RDW 14.2 % (11.5-15.5); WBC 6.9 k/uL (3.8-10.6)
[2019-09-08 00:40] LABS: ALT 26 U/L (4-34); AST 24 U/L (14-36); African American GFR (CKD) >90 (>60 ml/min/1.73 sqM); Albumin 4.8 g/dL (3.5-5.0); Alkaline Phosphatase 101 U/L (38-126); Anion Gap 9 mmol/L; Blood Urea Nitrogen 13 mg/dL (7-17); Calcium 9.2 mg/dL (8.4-10.2); Carbon Dioxide 22 mmol/L (22-30); Chloride 107 mmol/L (98-107); Glucose 106 mg/dL (74-99); Magnesium 2.2 mg/dL (1.6-2.3); Non-African American GFR(CKD) >90 (>60 ml/min/1.73 sqM); Phosphorus 3.7 mg/dL (2.5-4.5); Potassium 4.1 mmol/L (3.5-5.1); Sodium 138 mmol/L (137-145); Total Bilirubin 0.5 mg/dL (0.2-1.3); Total Protein 7.2 g/dL (6.3-8.2)
[2019-09-08 00:42] LABS: INR 0.9 (<1.2); Partial Thromboplastin Time 22.8 sec (22.0-30.0); Prothrombin Time 9.5 sec (9.0-12.0)
[2019-09-08] MEDS ORDERED: VANCOMYCIN 1,250 MG in SODIUM CHLORIDE 0.9% 250 ML IVPB ONE (01:00)
[2019-09-08] MEDS ORDERED: diphenhydrAMINE 25 MG CAP PO SCH (02:00)
[2019-09-08] MEDS ORDERED: LIDOCAINE 4% CREAM 5 GM TUBE TOPICAL PRN (03:00)
[2019-09-08] MEDS ORDERED: diphenhydrAMINE 25 MG CAP PO PRN (03:00)
[2019-09-08] MEDS: MORPHINE SULFATE 4 MG/ML SYRINGE IVP PRN ×2 (03:03→08:11)
[2019-09-08 08:02] VITALS: BP 127/71; PULSE 76; RESP 16; TEMP 96.9
[2019-09-08] MEDS ORDERED: PANTOPRAZOLE 40 MG/10 ML VIAL IVP SCH (10:15)
[2019-09-08] MEDS ORDERED: lamoTRIgine 100 MG TAB PO SCH (10:15)
[2019-09-08] MEDS ORDERED: traMADol 50 MG TAB PO PRN (10:45)
[2019-09-08 10:56] LABS: Amphetamine Screen,Urine Not Detected (NotDetected); Barbiturate Screen,Urine Not Detected (NotDetected); Benzodiazepines Screen,Urine Detected (NotDetected); Cocaine Screen,Urine Not Detected (NotDetected); Methadone Screen, Urine Not Detected (NotDetected); Opiate Screen,Urine Detected (NotDetected); Oxycodone Screen, Urine Not Detected (NotDetected); Phencyclidine Screen,Urine Not Detected (NotDetected); Tricyclic Antidepressant,Urine Not Detected (NotDetected); Urn Cannabinoid Scrn Not Detected (NotDetected)
[2019-09-08] MEDS ORDERED: valACYclovir 500 MG TAB PO SCH (11:00)
[2019-09-08] MEDS ORDERED: LACOSAMIDE 150 MG TABLET PO SCH (11:15)
[2019-09-08] MEDS ORDERED: LACOSAMIDE 50 MG TABLET PO SCH ×3 (11:15→21:00)
[2019-09-08] MEDS ORDERED: VANCOMYCIN 1,000 MG in SODIUM CHLORIDE 0.9% 250 ML IVPB SCH (13:00)
--- NOTE | 2019-09-08 14:16 | P.HPIM ---
History of Present Illness H&P Date: 09/09/19 Chief Complaint: worsening finger cellulitis/pain History and Physical and Discharge Summary This is a 39-year-old presented to the ER with complaints of right middle finger worsening tenderness, erythema, pain. Reports 2 weeks ago on the tip of her right finger presented with a blister appearance, eventually popped with white c lear fluid, no purulent drainage then crusted over,tender, occasional clear drainage. Pain in entire right middle finger has worsened-continuous radiating to second finger. Denies fever or chills. Denies nausea vomiting or diarrhea. Denies abdominal pain. Denies chest pain, palpitations or shortness of breath. Denies lightheadedness, dizziness or focal deficits.Toxicology screen reporting opiates and benzos. Afebrile, unremarkable hematology, coagulation, chemistry. Aerobic/anaerobic cultures obtained in the ER and pending. Receiving gentle IV fluid hydration. Review of Systems Constitutional: Denied any fatigue denied any fever. Cardio vascular: denied any chest pain, palpitations Gastrointestinal denied any nausea vomiting Pulmonary: Denied any shortness of breath cough Neurologic denied any new focal deficits ROS Statement: Those systems with pertinent positive or pertinent negative responses have been documented in the HPI. ROS Other: All systems not noted in ROS Statement are negative. Past Medical History Past Medical History: Hypertension, Seizure Disorder Additional Past Medical History / Comment(s): knee pain, back pain, migraines History of Any Multi-Drug Resistant Organisms: None Reported Past Surgical History: Back Surgery, Orthopedic Surgery Additional Past Surgical History / Comment(s): D & C l knee Past Anesthesia/Blood Transfusion Reactions: No Reported Reaction Past Psychological History: Anxiety Smoking Status: Current every day smoker Past Alcohol Use History: None Reported Past Drug Use History: None Reported - Past Family History Mother History Unknown: Yes Medications and Allergies Home Medications Medication Instructions Recorded Confirmed Type Lacosamide [Vimpat] 200 mg PO BID 09/13/17 09/08/19 History lamoTRIgine [LaMICtal] 150 mg PO BID 03/04/19 09/08/19 History ALPRAZolam [Xanax] 0.5 mg PO BID 09/08/19 09/08/19 History Acyclovir [Zovirax] 1 applic TOPICAL 5XD #5 gm 09/08/19 Rx Ketorolac [Toradol] 10 mg PO Q6HR PRN #20 tab 09/08/19 Rx Pantoprazole [Protonix] 40 mg PO AC-BRKFST #10 tablet. 09/08/19 Rx Pregabalin [Lyrica] 75 mg PO BID 3 Days #6 cap 09/08/19 Rx valACYclovir [Valtrex] 1,000 mg PO TID 7 Days #42 tab 09/08/19 Rx Allergies Allergy/AdvReac Type Severity Reaction Status Date / Time prednisone AdvReac Rash/Hives Verified 09/08/19 07:38 vancomycin [From Vancocin] AdvReac Rash/Hives Verified 09/08/19 07:38 Physical Exam Vitals: Vital Signs Temp Pulse Pulse Pulse Resp BP BP 09/08/19 08:00 96.9 F L 76 16 127/71 09/08/19 01:52 98.1 F 75 18 132/90 09/07/19 23:22 97.8 F 87 16 142/88 Pulse Ox 09/08/19 08:00 97 09/08/19 01:52 100 09/07/19 23:22 99 Intake and Output 09/07/19 09/08/19 09/08/19 22:59 06:59 14:59 Other: Voiding Method Toilet Toilet # Voids 2 Weight 77.111 kg GENERAL: Sitting up in bed, no acute distress, right arm elevated on one pillow. HEAD: Atraumatic, normocephalic. EYES: Pupils equal round and reactive to light, extraocular movements intact, sclera anicteric, conjunctiva are normal. ENT:nares patent, oropharynx clear without exudates. Moist mucous membranes. NECK: Normal range of motion, supple without lymphadenopathy or JVD, no thyromegaly LUNGS: Breath sounds clear to auscultation bilaterally and equal. No wheezes rales or rhonchi. HEART: Regular rate and rhythm without murmurs, rubs or gallops.S1S2 Normal ABDOMEN: Soft, normoactive bowel sounds. No guarding, no rebound. EXTREMITIES: Normal range of motion, no pitting or edema. No clubbing or cyanosis. NEUROLOGICAL: Cranial nerves II through XII grossly intact. No focal deficits. PSYCH: Normal mood, normal affect. SKIN: Warm, Dry, normal turgor, no rashes. Right middle finger tip crusty, tender,erythema Results CBC & Chem 7: 07/21/20 00:15 09/08/19 00:15 Labs: Abnormal Lab Results - Last 24 Hours (Table) 09/08/19 Range/Units 00:15 Glucose 106 H (74-99) mg/dL Thrombosis Risk Factor Assmnt - Choose All That Apply Any of the Below Risk Factors Present?: Yes Each Factor Represents 1 point: Obesity (BMI >25) Other Risk Factors: No Other congenital or acquired thrombophilia - If yes, enter type in comment: No Thrombosis Risk Factor Assessment Total Risk Factor Score: 1 Thrombosis Risk Factor Assessment Level: Low Risk Assessment and Plan Assessment: Right middle finger cellulitis, infection, possible herpetic antoine,HSV culture pending, possible paronychia. Hypertension History of Seizure disorder Vagal Nerve Stimulator, Follows with Dr. Tiffanie Jeffers Ongoing nicotine dependence Plan: Continue current medication regime ,monitoring and symptomatic treatment. HCG/drug screen ordered. Aerobic and anaerobic wound cultures obtained in ER/pending. HSV Viral culture will be obtained at bedside. X-ray of hand with focus on right middle finger ordered. Gentle IV fluid hydration. Home meds have been reviewed and resumed accordingly. Valtrex at to med regimen. Pain management. Patient evaluated by Dr. Negrete, patient will be discharged home today in a stable condition with guarded prognosis. Final culture results to be faxed to PCPs office. Discharge Medication List Lacosamide [Vimpat] 200 mg PO BID 09/13/17 [History] lamoTRIgine [LaMICtal] 150 mg PO BID 03/04/19 [History] ALPRAZolam [Xanax] 0.5 mg PO BID 09/08/19 [History] Acyclovir [Zovirax] 1 applic TOPICAL 5XD #5 gm 09/08/19 [Rx] Ketorolac [Toradol] 10 mg PO Q6HR PRN #20 tab 09/08/19 [Rx] Pantoprazole [Protonix] 40 mg PO AC-BRKFST #10 tablet. 09/08/19 [Rx] Pregabalin [Lyrica] 75 mg PO BID 3 Days #6 cap 09/08/19 [Rx] valACYclovir [Valtrex] 1,000 mg PO TID 7 Days #42 tab 09/08/19 [Rx] The impression and plan of care has been dictated as directed. : I performed a history and examination of this patient, discussed the same with the dictator. I agree with the dictator's note ,documented as a scribe. Any additional findings or plans will be noted.
[2019-09-08] MEDS ORDERED: ALPRAZolam 0.5 MG TAB PO SCH (21:00)
[2019-09-09] MEDS ORDERED: PANTOPRAZOLE 40 MG TABLET PO SCH (07:30)
== END 2019-09-08 15:15 ==
LOC: EC 23:20 → 1SOBS 09-08 00:02
PROVIDERS: ADMIT Family Medicine; ATTEND Family Medicine
DX: L03.011 Cellulitis of right finger (principal); I10 Essential (primary) hypertension; F41.9 Anxiety disorder, unspecified; F17.200 Nicotine dependence, unspecified, uncomplicated; G40.909 Epilepsy, unspecified, not intractable, without status epilepticus; M25.569 Pain in unspecified knee; M54.9 Dorsalgia, unspecified; G43.909 Migraine, unspecified, not intractable, without status migrainosus; E66.9 Obesity, unspecified; Z68.33 Body mass index [BMI] 33.0-33.9, adult; Z79.899 Other long term (current) drug therapy; Z88.8 Allergy status to other drugs, medicaments and biological substances; Z88.1 Allergy status to other antibiotic agents; Z79.1 Long term (current) use of non-steroidal anti-inflammatories (NSAID); Z11.59 Encounter for screening for other viral diseases
CPT/HCPCS: 96365 ×2; 96366; 96375 ×2; 96376; 99284; 87529; 80053; 83735; 84100; 85025; 85610; 85730; 81025; 87040; 80306; 87070; 87205; 87075; G0378; U0003; J3370; J2270; J0696; C9113

== ENCOUNTER → 2020-01-26 | Outpatient (CLI) | payer OTHER ==
[2020-01-26 14:08] LABS: Basophils % (A) 0 %; Eosinophils # (A) 0.2 k/uL (0-0.7); Eosinophils % (A) 2 %; HCT 42.1 % (34.0-46.0); HGB 14.3 gm/dL (11.4-16.0); Lymphocytes # (A) 1.7 k/uL (1.0-4.8); Lymphocytes % (A) 23 %; MCH 28.3 pg (25.0-35.0); MCHC 33.9 g/dL (31.0-37.0); MCV 83.6 fL (80.0-100.0); Mean Platelet Volume 6.6; Monocytes # (A) 0.3 k/uL (0-1.0); Monocytes % (A) 4 %; Neutrophils % (A) 69 %; Platelet Count 238 k/uL (150-450); RBC 5.04 m/uL (3.80-5.40); RDW 13.5 % (11.5-15.5); WBC 7.2 k/uL (3.8-10.6)
[2020-01-26 20:01] LABS: African American GFR (CKD) 106.9 (60.0-200.0); Albumin 4.3 g/dL (3.80-4.90); Albumin/Globulin Ratio 2.53 (1.60-3.17); Anion Gap 8.8 mmol/L (4.00-12.00); BUN/Creat Ratio 21.25 Ratio (12.00-20.00); Calcium 8.9 mg/dL (8.7-10.3); Carbon Dioxide 23.2 mmol/L (21.6-31.8); Globulin 1.7 g/dL (1.6-3.3); Non-African American GFR(CKD) 92.2 (60.0-200.0); Potassium 4.2 mmol/L (3.5-5.5); Total Bilirubin 0.5 mg/dL (0.2-1.2)
== END | disposition home or self-care (01) ==
LOC: LABWHC1 12:37
PROVIDERS: ATTEND Psychiatry & Neurology Pain Medicine
DX: R53.83 Other fatigue (principal); Z51.81 Encounter for therapeutic drug level monitoring
CPT/HCPCS: 36415; 80053; 85025

== ENCOUNTER → 2020-02-16 | Outpatient (CLI) | payer OTHER ==
--- NOTE | 2020-02-16 10:06 | CT ---
EXAMINATION TYPE: CT brain w con DATE OF EXAM: 02/16/2020 COMPARISON: CT brain May 05, 2017 HISTORY: ABDI, dizziness CT DLP: 1017.9 mGycm. Automated Exposure Control for Dose Reduction was Utilized. TECHNIQUE: CT scan of the head is performed with IV Contrast, patient injected with 100 mL of Isovu e 300. FINDINGS: No midline shift. The ventricles and sulci are within normal limits in size. Vilchis-white mat ter differentiation is maintained. Postcontrast images show no suspicious enhancing intraparenchymal mass. The globes are intact and the visualized sinuses are clear. No suspicious opacification of mast oid air cells bilaterally. IMPRESSION: Unremarkable study.
== END | disposition home or self-care (01) ==
LOC: RADCTMAIN 08:59
PROVIDERS: ATTEND Psychiatry & Neurology Neurology
DX: G40.909 Epilepsy, unspecified, not intractable, without status epilepticus (principal); R42 Dizziness and giddiness; R51.9 Headache, unspecified
CPT/HCPCS: 70460; Q9967

== ENCOUNTER → 2020-03-08 | Outpatient (CLI) | payer OTHER ==
[2020-03-08 14:07] LABS: HGB 14.2 gm/dL (11.4-16.0); MCH 27.3 pg (25.0-35.0); MCHC 32.2 g/dL (31.0-37.0); MCV 84.5 fL (80.0-100.0); Mean Platelet Volume 7.1; Platelet Count 245 k/uL (150-450); RDW 14.1 % (11.5-15.5); Reticulocyte % 2.9 % (0.5-2.0); WBC 6.3 k/uL (3.8-10.6)
[2020-03-08 21:36] LABS: Hemoglobin A1C 5.5 % (4.0-6.0)
[2020-03-08 22:24] LABS: Ferritin 52.1 ng/mL (10.0-291.0)
[2020-03-09 01:29] LABS: % Iron Saturation 20.68 (12.00-45.00)
[2020-03-09 07:37] LABS: Lamotrigine (Lamictal) 3.2 ug/mL (2.0-15.0)
[2020-03-10 12:25] LABS: Vit B1(Thiamine) 72 ug/L (38-122)
[2020-03-13 09:04] LABS: Nicotinamide 20 ng/mL; Nicotinic Acid None Detected; Nicotinuric Acid None Detected
== END | disposition home or self-care (01) ==
LOC: LABWHC1 11:37
PROVIDERS: ATTEND Psychiatry & Neurology Pain Medicine
DX: D64.9 Anemia, unspecified (principal); R53.83 Other fatigue; Z51.81 Encounter for therapeutic drug level monitoring
CPT/HCPCS: 36415; 80175; 82607; 82668; 82728; 82746; 83036; 83540; 83550; 84207; 84425; 84439; 84443; 84466; 84481; 84591; 85027; 85045

== ENCOUNTER → 2020-03-23 | Outpatient (CLI) | payer OTHER ==
--- NOTE | 2020-03-23 20:23 | CONS ---
CONSULTATION DATE OF SERVICE: 03/23/2020 This patient is a 39-year-old lady who has been evaluated in Sleep Center for possible obstructive sleep apnea/hypopnea syndrome. HISTORY OF PRESENT ILLNESS/SLEEP-WAKE EVALUATION: Patient's usual sleep schedule is from 9 p.m. until 7 a.m. Sometimes she has difficulties falling asleep and does not fall asleep until 3 a.m. She has a TV set in the bedroom. She usually sleeps on the side position and on her stomach. She snores and wakes up from sleep with episodes of choking, gasping for air, dry mouth, heartburn. The patient also has discomfort in her legs while falling asleep and sometimes in the middle of the night she moves her legs and has to walk. She wakes up from sleep 3 times with nocturia. No history of hypnagogic hallucinations, sleep paralysis or cataplexy. During the day the patient may feel sleepy. She wakes up tired and has difficulties paying attention, has problems with memory, concentration, irritability, depression, anxiety, claustrophobia. [place] Sleepiness Scale increased to 10. PAST MEDICAL HISTORY: Positive for epilepsy, last episode about one week ago. She has headaches, hyperlipidemia, episodes of anxiety, acid reflux. PAST SURGICAL HISTORY: VNS implant, tubal ligation. SOCIAL HISTORY: Positive for smoking about half pack a day for 25 years on and off. Alcohol consumption: None. MEDICATIONS: Lamictal twice a day. Vimpat twice a day. Xanax. FAMILY HISTORY: Stroke, diabetes. PHYSICAL EXAMINATION: GENERAL: A pleasant patient in no distress. VITAL SIGNS: BP 135/88, HR 91, RR 16, height 5 feet 1 inch, weight 196.6, temperature 98.0, oxygen saturation at room air 97%. BMI 35.1. HEENT: PERRLA, EOMI. Evaluation of oropharynx showed tongue protrudes midline. Extremely low position of soft palate. Mallampati IV. NECK: Supple. No JVD. Thyroid is not palpable. Neck measures 15-1/2 inches in circumference. LUNGS: Clear to percussion and to auscultation. Good air exchange. No wheezing or rhonchi. HEART: S1, S2 regular. No murmurs, gallops or rubs. ABDOMEN: Obese. EXTREMITIES: No clubbing or cyanosis. [place]ST[place] LAYER: Awake, alert, and oriented X3. Cranial nerves 2 to 7 intact. There is no fasciculation or atrophy. noted. No focal deficits observed. IMPRESSION: 1. Snoring, awakenings from sleep with choking and nocturia, extremely low position of soft palate, excessive daytime sleepiness, [place] Sleepiness Scale of 10; obstructive sleep apnea-hypopnea syndrome. 2. Significant amount of movements during the night; possibly periodic limb movements and symptoms of restless legs. 3. Obesity, BMI 35.1. 4. Episodes of anxiety. 5. Epilepsy. Last seizure episode was one week ago. 6. Headaches. 7. Hyperlipidemia. 8. Acid reflux. 9. Episodes of claustrophobia. 10.Status post VNS implant for treatment of seizures. 11.Status post tubal ligation. MMODL / IJN: [id number] /
== END | disposition home or self-care (01) ==
LOC: SLEEP 14:54
PROVIDERS: ATTEND Internal Medicine
DX: G47.33 Obstructive sleep apnea (adult) (pediatric) (principal); E66.9 Obesity, unspecified; F41.9 Anxiety disorder, unspecified; R51.9 Headache, unspecified; E78.5 Hyperlipidemia, unspecified; K21.9 Gastro-esophageal reflux disease without esophagitis; F40.240 Claustrophobia; Z98.51 Tubal ligation status; Z68.35 Body mass index [BMI] 35.0-35.9, adult; Z98.890 Other specified postprocedural states; Z79.899 Other long term (current) drug therapy
CPT/HCPCS: 99211

== ENCOUNTER → 2020-05-18 | Outpatient (CLI) | payer OTHER ==
--- NOTE | 2020-05-18 16:36 | SFUN ---
SLEEP CENTER FOLLOW UP NOTE DATE OF SERVICE: 05/18/2020 This 39-year-old lady had been followed in Sleep Center to discuss results of sleep study and following plan. I discussed results of sleep study with the patient in detail. Diagnostic polysomnogram did not show significant respiratory abnormalities during the sleep. Total apnea-hypopnea index was only 2, but patient continued to feel significant sleepiness. [place] Sleepiness Scale today is 16. MEDICATIONS: Lamictal, Vimpat, Xanax. PHYSICAL EXAMINATION: GENERAL: Patient in no distress. VITAL SIGNS: BP 146/88, HR 81, RR 14, oxygen saturation at room air 98%. Weight 187.2 pounds. HEENT: PERRLA, EOMI. Oropharynx extremely low position of soft palate. Mallampati 4. NECK: Supple, no JVD. Thyroid is not palpable. LUNGS: Clear to percussion and to auscultation. Good air exchange. No wheezing or rhonchi. HEART: S1, S2 regular. No murmurs, gallops, or rubs. ABDOMEN: Sightly obese. EXTREMITIES: No clubbing or cyanosis. DIRECTOR MEETINGS: Awake, alert, and oriented X3. Cranial nerves 2 to 7 intact. There is no fasciculation or atrophy. noted. No focal deficits observed. IMPRESSION: 1. No significant respiratory abnormalities have been documented during the sleep study. 2. Patient continued to feel significant excessive daytime sleepiness with high [place] Sleepiness Scale of 16. Differential diagnosis includes narcolepsy and idiopathic hypersomnia. 3. Episodes of anxiety. 4. Epilepsy. 5. Headaches. 6. Hyperlipidemia. 7. Acid reflux. 8. Episodes of claustrophobia. 9. Status post implant for treatment of seizures. 10.Status post tubal ligation. PLAN: 1. Polysomnography for multiple sleep latency test for objective evaluation of symptoms of excessive daytime sleepiness. 2. Losing weight. 3. Sleep hygiene with regular time in bed for 7-1/2 hours or 8 hours. 4. No driving if feeling sleepiness. Thank you very much for allowing me to participate in management of your patient. Sincerely, Asher Magana MD, PhD, FAASM Diplomat of [employer] [facility] MMODL / IJN: [id number] /
== END ==
LOC: SLEEP 13:09
PROVIDERS: ATTEND Internal Medicine
DX: G47.10 Hypersomnia, unspecified (principal); F41.9 Anxiety disorder, unspecified; G40.909 Epilepsy, unspecified, not intractable, without status epilepticus; R51.9 Headache, unspecified; E78.5 Hyperlipidemia, unspecified; K21.9 Gastro-esophageal reflux disease without esophagitis; F40.240 Claustrophobia; Z46.51 Encounter for fitting and adjustment of gastric lap band

== ENCOUNTER 2020-06-23 00:11 | Emergency (ER) | payer OTHER ==
[2020-06-23 00:15] VITALS: PULSE 81; RESP 18; TEMP 97.5
[2020-06-23] MEDS ORDERED: SODIUM CHLORIDE 0.9% 1,000 ML IV STA (00:32)
[2020-06-23] MEDS ORDERED: MORPHINE SULFATE 4 MG/ML SYRINGE IVP STA (00:41)
[2020-06-23] MEDS ORDERED: ONDANSETRON 4 MG/2 ML VIAL IVP STA (00:41)
[2020-06-23 00:57] LABS: Basophils % (A) 1 %; Eosinophils # (A) 0.2 k/uL (0-0.7); Eosinophils % (A) 3 %; HCT 43.6 % (34.0-46.0); HGB 14.8 gm/dL (11.4-16.0); Lymphocytes % (A) 25 %; MCHC 33.9 g/dL (31.0-37.0); MCV 82.5 fL (80.0-100.0); Mean Platelet Volume 6.7; Monocytes # (A) 0.4 k/uL (0-1.0); Monocytes % (A) 5 %; Neutrophils # (A) 5.3 k/uL (1.3-7.7); Neutrophils % (A) 66 %; Platelet Count 249 k/uL (150-450); RBC 5.28 m/uL (3.80-5.40); RDW 13.7 % (11.5-15.5)
[2020-06-23 01:04] LABS: Appearance,Urine Cloudy (Clear); Bilirubin,Urine Negative (Negative); Blood,Urine Negative (Negative); Color,Urine Yellow; Glucose,Urine (UA) Negative (Negative); Ketones,Urine Negative (Negative); Leukocyte Esterase,Urine Large (Negative); Mucus,Urine Rare /hpf; Nitrite,Urine Negative (Negative); Protein,Urine Negative (Negative); RBC,Urine 1 /hpf (0-5); Specific Gravity,Urine 1.027 (1.001-1.035); Squamous Epithelial Cell,Urine 10 /hpf (0-4); WBC,Urine 50 /hpf (0-5)
[2020-06-23 01:08] LABS: ALT 49 U/L (4-34); AST 41 U/L (14-36); African American GFR (CKD) >90 (>60 ml/min/1.73 sqM); Albumin 4.5 g/dL (3.5-5.0); Alkaline Phosphatase 93 U/L (38-126); Amylase 36 U/L (30-110); Anion Gap 9 mmol/L; Blood Urea Nitrogen 16 mg/dL (7-17); Calcium 9.6 mg/dL (8.4-10.2); Carbon Dioxide 22 mmol/L (22-30); Chloride 108 mmol/L (98-107); Glucose 113 mg/dL (74-99); Lipase 124 U/L (23-300); Non-African American GFR(CKD) >90 (>60 ml/min/1.73 sqM); Potassium 4.5 mmol/L (3.5-5.1); Sodium 139 mmol/L (137-145); Total Bilirubin 0.5 mg/dL (0.2-1.3); Total Protein 7.1 g/dL (6.3-8.2)
--- NOTE | 2020-06-23 01:36 | US ---
EXAM: US Abdomen Limited, Gallbladder CLINICAL HISTORY: ITS.REASON US Reason: +mcguire sign TECHNIQUE: Real-time ultrasound of the right upper quadrant with image documentation. COMPARISON: No relevant prior studies available. FINDINGS: Liver: The liver measures 15.8 cm. There is mild fatty infiltration. No focal liver lesion is seen. Gallbladder: Sonographic Mcguire sign is positive. The gallbladder wall thickness is normal measuring 2.3 cm. No gallstones or pericholecystic fluid is identified. Common bile duct: The common bile duct is nondilated measuring 4 mm. Pancreas: Unremarkable as visualized. Right kidney: The right kidney measures 10.4 x 4.6 x 4.5 cm, 113 mL. IMPRESSION: The gallbladder appears unremarkable no gallstones or surrounding inflammation. Sonographic Mcguire sign is positive. Fatty infiltration of the liver. No focal liver lesion is seen.
--- NOTE | 2020-06-23 01:56 | ED ---
Abdominal Pain HPI - General Chief Complaint: Abdominal Pain Stated Complaint: RT side pain Time Seen by Provider: 06/23/20 00:18 Source: patient Mode of arrival: ambulatory Limitations: no limitations - History of Present Illness Initial Comments: 39-year-old male presents emergency Department with a chief complaint abdominal pain. Patient reports the pain began yesterday and located in the right-sided abdomen and began to radiate slightly to the back today. Patient does report history kidney stones was states this does not feel like it. States the pain is not postprandial. She does report nausea and multiple episodes of nonbilious and nonbloody vomiting but no diarrhea. She denies any urinary or vaginal symptoms. States the pain is sharp in nature and comes and goes. She denies any fevers or chills, chest pain or shortness of breath. Only abdominal surgical history tubal ligation. - Related Data Home Medications Medication Instructions Recorded Confirmed Lacosamide [Vimpat] 200 mg PO BID 09/13/17 09/08/19 lamoTRIgine [LaMICtal] 150 mg PO BID 03/04/19 09/08/19 ALPRAZolam [Xanax] 0.5 mg PO BID 09/08/19 09/08/19 Previous Rx's Medication Instructions Recorded Acyclovir [Zovirax] 1 applic TOPICAL 5XD #5 gm 09/08/19 Ketorolac [Toradol] 10 mg PO Q6HR PRN #20 tab 09/08/19 Pantoprazole [Protonix] 40 mg PO AC-BRKFST #10 tablet. 09/08/19 Pregabalin [Lyrica] 75 mg PO BID 3 Days #6 cap 09/08/19 valACYclovir [Valtrex] 1,000 mg PO TID 7 Days #42 tab 09/08/19 Ondansetron Odt [Zofran Odt] 4 mg PO Q8HR PRN #14 tab 06/23/20 Allergies Allergy/AdvReac Type Severity Reaction Status Date / Time prednisone AdvReac Rash/Hives Verified 06/23/20 00:15 vancomycin [From Vancocin] AdvReac Rash/Hives Verified 06/23/20 00:15 Review of Systems ROS Statement: Those systems with pertinent positive or pertinent negative responses have been documented in the HPI. ROS Other: All systems not noted in ROS Statement are negative. Past Medical History Past Medical History: Hypertension, Seizure Disorder Additional Past Medical History / Comment(s): knee pain, back pain, migraines, kidney stones History of Any Multi-Drug Resistant Organisms: None Reported Past Surgical History: Back Surgery, Orthopedic Surgery Additional Past Surgical History / Comment(s): D & C l knee Past Anesthesia/Blood Transfusion Reactions: No Reported Reaction Past Psychological History: Anxiety Smoking Status: Current every day smoker Past Alcohol Use History: None Reported Past Drug Use History: None Reported - Past Family History Mother History Unknown: Yes General Exam Limitations: no limitations General appearance: alert, in no apparent distress Head exam: Present: atraumatic, normocephalic, normal inspection Eye exam: Present: normal appearance, PERRL, EOMI Pupils: Present: normal accommodation ENT exam: Present: normal exam, normal oropharynx, mucous membranes moist, TM's normal bilaterally, normal external ear exam Neck exam: Present: normal inspection, full ROM. Absent: tenderness Respiratory exam: Present: normal lung sounds bilaterally. Absent: respiratory distress, wheezes, rales, rhonchi, stridor, chest wall tenderness Cardiovascular Exam: Present: regular rate, normal rhythm, normal heart sounds. Absent: systolic murmur, diastolic murmur GI/Abdominal exam: Present: soft, tenderness (Right-sided abdominal pain. Positive Mcguire sign). Absent: distended, guarding, rebound, rigid Extremities exam: Present: normal inspection, full ROM, normal capillary refill. Absent: tenderness, pedal edema, joint swelling Back exam: Present: normal inspection, full ROM. Absent: tenderness, CVA tenderness (R), CVA tenderness (L), muscle spasm, vertebral tenderness Neurological exam: Present: alert, oriented X3, normal gait Psychiatric exam: Present: normal affect, normal mood Skin exam: Present: warm, dry, intact, normal color Course Vital Signs 06/23/20 06/23/20 00:13 03:00 Temperature 97.5 F L Pulse Rate 81 81 Respiratory 18 18 Rate Blood Pressure 165/100 129/72 O2 Sat by Pulse 98 97 Oximetry Medical Decision Making - Medical Decision Making 39-year-old male presents to the emergency department with chief complaint of abdominal pain. On physical examination, patient appears to have right-sided abdominal pain mostly in the right upper quadrant region. Positive Mcguire sign. CBC is unremarkable. CMP reveals mild transaminitis. UA shows white blood cells of 50 with elevated leukocyte esterase. Negative urgency. Patient was given IV fluids, analgesia and antiemetics. Initially right upper quadrant ultrasound was obtained to rule out cholecystitis which was within normal limits. Patient continued to be symptomatically. CT was obtained showing fatty infiltration of the liver with borderline hepatomegaly. Possible constipation was 6.7 mm stool in the cecum. No other acute findings. Patient will be discharged with Tylenol 3. Advised her to follow with the primary care physician. Also give her a prescription for Zofran. Return parameters were discussed the patient was understanding and agreeable. Case discussed with - Lab Data Result diagrams: 06/23/20 00:40 06/23/20 00:40 Lab Results 06/23/20 06/23/20 06/23/20 Range/Units 00:40 00:40 00:40 WBC 8.0 (3.8-10.6) k/uL RBC 5.28 (3.80-5.40) m/uL Hgb 14.8 (11.4-16.0) gm/dL Hct 43.6 (34.0-46.0) % MCV 82.5 (80.0-100.0) fL MCH 28.0 (25.0-35.0) pg MCHC 33.9 (31.0-37.0) g/dL RDW 13.7 (11.5-15.5) % Plt Count 249 (150-450) k/uL MPV 6.7 Neutrophils % 66 % Lymphocytes % 25 % Monocytes % 5 % Eosinophils % 3 % Basophils % 1 % Neutrophils # 5.3 (1.3-7.7) k/uL Lymphocytes # 2.0 (1.0-4.8) k/uL Monocytes # 0.4 (0-1.0) k/uL Eosinophils # 0.2 (0-0.7) k/uL Basophils # 0.0 (0-0.2) k/uL Sodium (137-145) mmol/L Potassium (3.5-5.1) mmol/L Chloride (98-107) mmol/L Carbon Dioxide (22-30) mmol/L Anion Gap mmol/L BUN (7-17) mg/dL Creatinine (0.52-1.04) mg/dL Est GFR (CKD-EPI)AfAm (>60 ml/min/1.73 sqM) Est GFR (CKD-EPI)NonAf (>60 ml/min/1.73 sqM) Glucose (74-99) mg/dL Calcium (8.4-10.2) mg/dL Total Bilirubin (0.2-1.3) mg/dL AST (14-36) U/L ALT (4-34) U/L Alkaline Phosphatase (38-126) U/L Total Protein (6.3-8.2) g/dL Albumin (3.5-5.0) g/dL Amylase (30-110) U/L Lipase (23-300) U/L Urine Color Yellow Urine Appearance Cloudy H (Clear) Urine pH 6.0 (5.0-8.0) Ur Specific Healy 1.027 (1.001-1.035) Urine Protein Negative (Negative) Urine Glucose (UA) Negative (Negative) Urine Ketones Negative (Negative) Urine Blood Negative (Negative) Urine Nitrite Negative (Negative) Urine Bilirubin Negative (Negative) Urine Urobilinogen 2.0 (<2.0) mg/dL Ur Leukocyte Esterase Large H (Negative) Urine RBC 1 (0-5) /hpf Urine WBC 50 H (0-5) /hpf Ur Squamous Epith Cells 10 H (0-4) /hpf Urine Mucus Rare H (None) /hpf Urine HCG, Qual Not Detected (Not Detectd) 06/23/20 Range/Units 00:40 WBC (3.8-10.6) k/uL RBC (3.80-5.40) m/uL Hgb (11.4-16.0) gm/dL Hct (34.0-46.0) % MCV (80.0-100.0) fL MCH (25.0-35.0) pg MCHC (31.0-37.0) g/dL RDW (11.5-15.5) % Plt Count (150-450) k/uL MPV Neutrophils % % Lymphocytes % % Monocytes % % Eosinophils % % Basophils % % Neutrophils # (1.3-7.7) k/uL Lymphocytes # (1.0-4.8) k/uL Monocytes # (0-1.0) k/uL Eosinophils # (0-0.7) k/uL Basophils # (0-0.2) k/uL Sodium 139 (137-145) mmol/L Potassium 4.5 (3.5-5.1) mmol/L Chloride 108 H (98-107) mmol/L Carbon Dioxide 22 (22-30) mmol/L Anion Gap 9 mmol/L BUN 16 (7-17) mg/dL Creatinine 0.67 (0.52-1.04) mg/dL Est GFR (CKD-EPI)AfAm >90 (>60 ml/min/1.73 sqM) Est GFR (CKD-EPI)NonAf >90 (>60 ml/min/1.73 sqM) Glucose 113 H (74-99) mg/dL Calcium 9.6 (8.4-10.2) mg/dL Total Bilirubin 0.5 (0.2-1.3) mg/dL AST 41 H (14-36) U/L ALT 49 H (4-34) U/L Alkaline Phosphatase 93 (38-126) U/L Total Protein 7.1 (6.3-8.2) g/dL Albumin 4.5 (3.5-5.0) g/dL Amylase 36 (30-110) U/L Lipase 124 (23-300) U/L Urine Color Urine Appearance (Clear) Urine pH (5.0-8.0) Ur Specific Healy (1.001-1.035) Urine Protein (Negative) Urine Glucose (UA) (Negative) Urine Ketones (Negative) Urine Blood (Negative) Urine Nitrite (Negative) Urine Bilirubin (Negative) Urine Urobilinogen (<2.0) mg/dL Ur Leukocyte Esterase (Negative) Urine RBC (0-5) /hpf Urine WBC (0-5) /hpf Ur Squamous Epith Cells (0-4) /hpf Urine Mucus (None) /hpf Urine HCG, Qual (Not Detectd) Disposition Clinical Impression: Abdominal pain, Nausea & vomiting Disposition: HOME SELF-CARE Condition: Stable Instructions (If sedation given, give patient instructions): Abdominal Pain (ED) Additional Instructions: Follow-up with a GI specialist. Return to emergency department if symptoms worsen. Prescriptions: Ondansetron Odt [Zofran Odt] 4 mg PO Q8HR PRN #14 tab PRN Reason: Nausea Is patient prescribed a controlled substance at d/c from ED?: No Referrals: Jean-Pierre Orlando Jr, [Primary Care Provider] - 1-2 days Lexis Subramanian MD [STAFF PHYSICIAN] - 1-2 days Time of Disposition: 03:41
[2020-06-23] MEDS ORDERED: LORazepam 2 MG/ML INJ IV STA (02:05)
[2020-06-23] MEDS ORDERED: KETOROLAC 15 MG/ML 1 ML VIAL IVP STA (02:37)
--- NOTE | 2020-06-23 03:35 | CT ---
EXAM: CT Abdomen and Pelvis With Intravenous Contrast CLINICAL HISTORY: ITS.REASON CT Reason: right sided abd pain TECHNIQUE: Axial computed tomography images of the abdomen and pelvis with intravenous contrast. CTDI is 28.87 mGy and DLP is 1251.5 mGy-cm. This CT exam was performed using one or more of the following dose reduction techniques: automated exposure control, adjustment of the mA and/or kV according to patient size, and/or use of iterative reconstruction technique. COMPARISON: December 01, 2015 FINDINGS: Lung bases: Unremarkable. No mass. No consolidation. ABDOMEN: Liver: There is fatty infiltration of the liver and borderline hepatomegaly measuring 18.1 cm craniocaudad. No focal liver lesion is seen. Gallbladder and bile ducts: Unremarkable. No calcified stones. No ductal dilation. Pancreas: Unremarkable. No mass. No ductal dilation. Spleen: Unremarkable. No splenomegaly. Adrenals: Unremarkable. No mass. Kidneys and ureters: Unremarkable. No solid mass. No hydronephrosis. Stomach and bowel: Probable constipation with 6.7 cm of stool in the cecum. The appendix is normal. No acute inflammatory changes are seen involving the bowel. No obstruction. No mucosal thickening. PELVIS: Appendix: See above. Bladder: Unremarkable. No mass. Reproductive: Possible 2.8 cm cyst or follicle in the left ovary. No for further seen within the pelvis. ABDOMEN and PELVIS: Intraperitoneal space: Unremarkable. No free air. No significant fluid collection. Bones/joints: No acute fracture. No dislocation. Soft tissues: Unremarkable. Vasculature: Unremarkable. No abdominal aortic aneurysm. Lymph nodes: Unremarkable. No enlarged lymph nodes. IMPRESSION: 1. There is fatty infiltration of the liver and borderline hepatomegaly measuring 18.1 cm craniocaudad. No focal liver lesion is seen. 2. Probable constipation with 6.7 cm of stool in the cecum. The appendix is normal. No acute inflammatory changes are seen involving the bowel.
[2020-06-23] MEDS ORDERED: ACET/COD 300 MG/30 MG STARTER PACK 6 TAB BTL PO STA (03:40)
[2020-06-23] MEDS ORDERED: ONDANSETRON 4 MG ODT STARTER PACK 2 TAB BTL PO STA (03:41)
[2020-06-23 03:59] VITALS: BP 129/72
== END 2020-06-23 04:00 | disposition home or self-care (01) ==
LOC: EC 00:11
DX: R10.9 Unspecified abdominal pain (principal); R11.2 Nausea with vomiting, unspecified; I10 Essential (primary) hypertension; G40.909 Epilepsy, unspecified, not intractable, without status epilepticus; F41.9 Anxiety disorder, unspecified; G43.909 Migraine, unspecified, not intractable, without status migrainosus; F17.200 Nicotine dependence, unspecified, uncomplicated; Z87.442 Personal history of urinary calculi; Z79.899 Other long term (current) drug therapy; Z79.1 Long term (current) use of non-steroidal anti-inflammatories (NSAID)
CPT/HCPCS: 36415; 80053; 82150; 83690; 85025; 81001; 81025; 87086; 76705; 74177; 99284; 96374; 96375 ×3; 96361; J2060; J2270; J2405; J1885; S0119; Q9967

== ENCOUNTER 2020-06-27 13:10 | Observation (INO) | payer OTHER ==
--- NOTE | 2020-06-27 13:19 | ED ---
General Adult HPI - General Chief complaint: Seizure Stated complaint: seizures Time Seen by Provider: 06/27/20 13:18 Source: family Mode of arrival: wheelchair Limitations: altered mental status - History of Present Illness Initial comments: Dictation was produced using [employer] dictation software. please excuse any grammatical, word or spelling errors. This patient was cared for during a federal and state declared state of emergency secondary to Covid 19 Chief Complaint: 39-year-old female with past medical history of seizure disor mirta presents to emergency department after several seizures History of Present Illness: A 39-year-old female she was brought by daughter. Patient allegedly has been having increasing frequency and intensity of seizures over the last 1-2 days. Patient does have a seizure doctor. She states she ta kes Vimpat and Lamictal. She reports that over the last 2 or 3 days she's been feeling weak. She's had multiple seizures over the course of the last 48 hours. Today she had 2 grand mal seizures. Since having the seizures earlier today she's been feeling very weak and her legs to the point where she can't walk. She initially presented to [facility] where she was given some Ativan. Patient did not feel satisfied with her care there. She called her daughter and daughter brought patient to our emergency department. The ROS documented in this emergency department record has been reviewed and confirmed by me. Those systems with pertinent positive or negative responses have been documented in the HPI. All other systems are other negative and/or noncontributory. PHYSICAL EXAM: General Impression: Alert and oriented x3, not in acute distress, lethargic however answer questions appropriately HEENT: Normocephalic atraumatic, extra-ocular movements intact, pupils equal and reactive to light bilaterally, mucous membranes moist. Cardiovascular: Heart regular rate and rhythm Chest: Able to complete full sentences, no retractions, no tachypnea Abdomen: abdomen soft, non-tender, non-distended, no organomegaly Musculoskeletal: Pulses present and equal in all extremities, no peripheral edema Motor: no focal deficits noted Neurological: CN II-XII grossly intact, no focal motor or sensory deficits noted Skin: Intact with no visualized rashes Psych: Normal affect and mood ED course: 39-year-old Female past medical history of seizure disorder presents with coca presentation concerning for status epilepticus. According to daughter she had 2 grand mal seizure episodes today. She does have a history of seizure disorder. Signs upon arrival are within acceptable limits. EKGs benign. Blood glucose is 105 Laboratory evaluation obtained. CBC within acceptable limits. Metabolic panel shows mild acidosis. Rest of labs unremarkable. Computed tomography scan of the brain is negative. Patient was observed in the emergency department for approximately 3 hours and 30 minutes with no recurrent episodes of seizures. Patient was ambulated at the bedside however was significantly weak. Patient be admitted for fluid hydration, neurology consult. Patient will be admitted to observation. Case discussed Dr. Negrete EKG interpretation: Ventricular rate 78, normal sinus rhythm,. 146, QRS 76, QTC 446. No NM prolongation, no QTC prolongation, no ST or T-wave changes noted. Overall, this EKG is unremarkable Documentation from [facility] was obtained. Patient did have some blood work. She had a normal CBC with a stable hemoglobin 14.0. Metabolic panel is unremarkable. - Related Data Home Medications Medication Instructions Recorded Confirmed Lacosamide [Vimpat] 200 mg PO BID 09/13/17 09/08/19 lamoTRIgine [LaMICtal] 150 mg PO BID 03/04/19 09/08/19 ALPRAZolam [Xanax] 0.5 mg PO BID 09/08/19 09/08/19 Previous Rx's Medication Instructions Recorded Acyclovir [Zovirax] 1 applic TOPICAL 5XD #5 gm 09/08/19 Ketorolac [Toradol] 10 mg PO Q6HR PRN #20 tab 09/08/19 Pantoprazole [Protonix] 40 mg PO AC-BRKFST #10 tablet. 09/08/19 Pregabalin [Lyrica] 75 mg PO BID 3 Days #6 cap 09/08/19 valACYclovir [Valtrex] 1,000 mg PO TID 7 Days #42 tab 09/08/19 Ondansetron Odt [Zofran Odt] 4 mg PO Q8HR PRN #14 tab 06/23/20 Allergies Allergy/AdvReac Type Severity Reaction Status Date / Time prednisone AdvReac Rash/Hives Verified 06/27/20 13:14 vancomycin [From Vancocin] AdvReac Rash/Hives Verified 06/27/20 13:14 Review of Systems ROS Statement: Those systems with pertinent positive or pertinent negative responses have been documented in the HPI. ROS Other: All systems not noted in ROS Statement are negative. Past Medical History Past Medical History: Hypertension, Seizure Disorder Additional Past Medical History / Comment(s): knee pain, back pain, migraines, kidney stones History of Any Multi-Drug Resistant Organisms: None Reported Past Surgical History: Back Surgery, Orthopedic Surgery Additional Past Surgical History / Comment(s): D & C l knee Past Anesthesia/Blood Transfusion Reactions: No Reported Reaction Past Psychological History: Anxiety Smoking Status: Current every day smoker Past Alcohol Use History: None Reported Past Drug Use History: None Reported - Past Family History Mother History Unknown: Yes General Exam Limitations: altered mental status Course Vital Signs 06/27/20 06/27/20 06/27/20 13:11 14:22 16:05 Temperature 98.6 F Pulse Rate 75 75 77 Respiratory 18 18 18 Rate Blood Pressure 150/90 140/91 122/77 O2 Sat by Pulse 99 97 98 Oximetry Medical Decision Making - Lab Data Result diagrams: 06/27/20 13:54 06/27/20 13:54 Lab Results 06/27/20 06/27/20 06/27/20 Range/Units 13:30 13:54 13:54 WBC 7.5 (3.8-10.6) k/uL RBC 5.65 H (3.80-5.40) m/uL Hgb 15.6 (11.4-16.0) gm/dL Hct 46.9 H (34.0-46.0) % MCV 83.0 (80.0-100.0) fL MCH 27.6 (25.0-35.0) pg MCHC 33.2 (31.0-37.0) g/dL RDW 13.6 (11.5-15.5) % Plt Count 267 (150-450) k/uL MPV 6.9 Neutrophils % 78 % Lymphocytes % 17 % Monocytes % 4 % Eosinophils % 1 % Basophils % 0 % Neutrophils # 5.8 (1.3-7.7) k/uL Lymphocytes # 1.2 (1.0-4.8) k/uL Monocytes # 0.3 (0-1.0) k/uL Eosinophils # 0.1 (0-0.7) k/uL Basophils # 0.0 (0-0.2) k/uL Sodium 139 (137-145) mmol/L Potassium 4.5 (3.5-5.1) mmol/L Chloride 108 H (98-107) mmol/L Carbon Dioxide 19 L (22-30) mmol/L Anion Gap 12 mmol/L BUN 11 (7-17) mg/dL Creatinine 0.63 (0.52-1.04) mg/dL Est GFR (CKD-EPI)AfAm >90 (>60 ml/min/1.73 sqM) Est GFR (CKD-EPI)NonAf >90 (>60 ml/min/1.73 sqM) Glucose 110 H (74-99) mg/dL POC Glucose (mg/dL) 105 H (75-99) mg/dL POC Glu Card Painter ID Elliott Cortes Calcium 9.1 (8.4-10.2) mg/dL Magnesium 2.1 (1.6-2.3) mg/dL Total Bilirubin 0.7 (0.2-1.3) mg/dL AST 40 H (14-36) U/L ALT 47 H (4-34) U/L Alkaline Phosphatase 96 (38-126) U/L Total Protein 7.4 (6.3-8.2) g/dL Albumin 4.7 (3.5-5.0) g/dL Disposition Clinical Impression: Weakness, Seizures Disposition: ADMITTED IP TO THIS [facility] Condition: Fair Referrals: Jean-Pierre Orlando Jr, DO [Primary Care Provider] - 1-2 days Decision Time: 16:44
[2020-06-27 13:31] LABS: Glucose,Whole Blood 105 mg/dL (75-99)
--- NOTE | 2020-06-27 14:25 | CT ---
EXAMINATION TYPE: CT brain wo con DATE OF EXAM: 06/27/2020 COMPARISON: 02/16/2020 HISTORY: Seizures CT DLP: 1123.[address] of the brain was performed. The ventricles, basal cisterns and sulci overlying the cerebral convexities demonstrate a normal appe arance. There is no evidence for intracranial hemorrhage or sulcal effacement. No mass effects are seen. Osseous calvarium is intact. If symptoms persist consider MRI as clinically warranted. IMPRESSION: 1. No acute intracranial process is seen at this time.
[2020-06-27] MEDS ORDERED: ACETAMINOPHEN TAB 500 MG TAB PO STA (14:29)
[2020-06-27 14:30] LABS: ALT 47 U/L (4-34); AST 40 U/L (14-36); African American GFR (CKD) >90 (>60 ml/min/1.73 sqM); Albumin 4.7 g/dL (3.5-5.0); Alkaline Phosphatase 96 U/L (38-126); Anion Gap 12 mmol/L; Blood Urea Nitrogen 11 mg/dL (7-17); Calcium 9.1 mg/dL (8.4-10.2); Carbon Dioxide 19 mmol/L (22-30); Chloride 108 mmol/L (98-107); Glucose 110 mg/dL (74-99); Magnesium 2.1 mg/dL (1.6-2.3); Non-African American GFR(CKD) >90 (>60 ml/min/1.73 sqM); Potassium 4.5 mmol/L (3.5-5.1); Sodium 139 mmol/L (137-145); Total Bilirubin 0.7 mg/dL (0.2-1.3); Total Protein 7.4 g/dL (6.3-8.2)
[2020-06-27 14:37] LABS: Basophils % (A) 0 %; Eosinophils # (A) 0.1 k/uL (0-0.7); Eosinophils % (A) 1 %; HCT 46.9 % (34.0-46.0); HGB 15.6 gm/dL (11.4-16.0); Lymphocytes # (A) 1.2 k/uL (1.0-4.8); Lymphocytes % (A) 17 %; MCH 27.6 pg (25.0-35.0); MCHC 33.2 g/dL (31.0-37.0); Mean Platelet Volume 6.9; Monocytes # (A) 0.3 k/uL (0-1.0); Monocytes % (A) 4 %; Neutrophils # (A) 5.8 k/uL (1.3-7.7); Neutrophils % (A) 78 %; Platelet Count 267 k/uL (150-450); RBC 5.65 m/uL (3.80-5.40); RDW 13.6 % (11.5-15.5); WBC 7.5 k/uL (3.8-10.6)
[2020-06-27] MEDS ORDERED: NALOXONE 0.4 MG/ML 1 ML VIAL IV PRN (16:42)
[2020-06-27] MEDS ORDERED: KETOROLAC 15 MG/ML 1 ML VIAL IVP STA (16:46)
[2020-06-27] MEDS: SODIUM CHLORIDE 0.9% 1,000 ML IV SCH (16:59)
[2020-06-27] MEDS: ONDANSETRON 4 MG/2 ML VIAL IVP PRN (16:59)
[2020-06-27] MEDS ORDERED: ALPRAZolam 1 MG TAB PO PRN (18:15)
[2020-06-27] MEDS: lamoTRIgine 100 MG TAB PO SCH (20:16)
[2020-06-27] MEDS: LACOSAMIDE 50 MG TABLET PO SCH (20:17)
[2020-06-27] MEDS: lamoTRIgine 25 MG TAB PO SCH (20:17)
[2020-06-27] MEDS: HYDROcodone/APAP 7.5-325MG 1 EACH TAB PO PRN (20:18)
[2020-06-27] MEDS: NICOTINE 14MG/24HR PATCH TRANSDERM SCH (20:22)
[2020-06-27] MEDS ORDERED: ONDANSETRON 4 MG/2 ML VIAL IVP STA (20:41)
[2020-06-27 20:43] LABS: Glucose,Whole Blood 152 mg/dL (75-99)
[2020-06-27 22:27] LABS: Appearance,Urine Clear (Clear); Bilirubin,Urine Negative (Negative); Blood,Urine Negative (Negative); Color,Urine Yellow; Glucose,Urine (UA) Negative (Negative); Ketones,Urine Negative (Negative); Leukocyte Esterase,Urine Negative (Negative); Nitrite,Urine Negative (Negative); Protein,Urine Trace (Negative); Specific Gravity,Urine 1.026 (1.001-1.035); Urobilinogen,Urine <2.0 mg/dL (<2.0)
[2020-06-28 03:11] VITALS: TEMP 98.2
[2020-06-28] MEDS: SODIUM CHLORIDE 0.9% 1,000 ML IV SCH ×2 (03:21→14:08)
[2020-06-28 05:35] LABS: Urine Alcohol Negative (Negative); Urine Barbiturate Positive (Negative); Urine Cocaine Negative (Negative); Urine Methadone Negative (Negative); Urine Opiates Positive (Negative); Urine Phencyclidine Negative (Negative)
[2020-06-28] MEDS ORDERED: LORazepam 2 MG/ML INJ IV STA (05:49)
[2020-06-28] MEDS: ONDANSETRON 4 MG/2 ML VIAL IVP PRN (05:59)
[2020-06-28] MEDS: ACETAMINOPHEN TAB 325 MG TAB PO PRN ×2 (06:14→12:14)
[2020-06-28 07:22] LABS: Glucose,Whole Blood 102 mg/dL (75-99)
[2020-06-28] MEDS ORDERED: PANTOPRAZOLE 40 MG TABLET PO SCH (07:30)
[2020-06-28] MEDS: lamoTRIgine 100 MG TAB PO SCH (07:40)
[2020-06-28] MEDS: NICOTINE 14MG/24HR PATCH TRANSDERM SCH (07:40)
[2020-06-28] MEDS: LACOSAMIDE 50 MG TABLET PO SCH (07:40)
[2020-06-28] MEDS: lamoTRIgine 25 MG TAB PO SCH (07:47)
[2020-06-28] MEDS: HYDROcodone/APAP 7.5-325MG 1 EACH TAB PO PRN (07:48)
[2020-06-28 10:41] LABS: African American GFR (CKD) >90 (>60 ml/min/1.73 sqM); Anion Gap 7 mmol/L; Blood Urea Nitrogen 11 mg/dL (7-17); Calcium 8.6 mg/dL (8.4-10.2); Carbon Dioxide 22 mmol/L (22-30); Chloride 110 mmol/L (98-107); Glucose 133 mg/dL (74-99); Non-African American GFR(CKD) >90 (>60 ml/min/1.73 sqM); Potassium 4.5 mmol/L (3.5-5.1); Sodium 139 mmol/L (137-145)
[2020-06-28 11:51] LABS: Glucose,Whole Blood 131 mg/dL (75-99)
--- NOTE | 2020-06-28 13:25 | P.CNNES ---
History of Present Illness Consult date: 06/28/20 Requesting physician: Mukul Vidal Reason for Consult: seizure History of Present Illness: This is a 39-year-old woman with medical history of epilepsy on VNS since 01/2019 presented emergency department on 06/27/2020 for multiple seizure episodes. Per the patient daughter were notified that the ED the patient has b een having increased the frequency and intensity of the seizure for the last 1-2 days. She is accompanied with her sister. Per the patient she stated the last 1 day prior to presentation she had 4 seizures an unknown duration. That she was told by daughter/family members that her arms will be stressed up words her back will be arched her arms or legs would be shaken and with these episodes that she would lose consciousness and that she would have a fall. She has some urinary incontinence. She said that again she had 4 episodes but unknown duration. She feels her balance has been off recently. She initially presented to [facility] where she was given Ativan and the patient wasn't satisfied with the care so as a result the patient was brought the patient the [facility] emergency department as a result per her sister. A shunt stated that she's been having seizures since the age of 34 or 35 and she has a couple seizures a week. She said her seizures are usually she loses consciousness and was toxic that she does not make sense when she talks. She has automatism in which she would having chewing movements as well as had taken movement of both hands and she does not have jerk in the of any of the extremities with these episodes. She has seizure lasting 1 minute and the post ictal lasting 1 minute. Associate with these episodes are sometimes urinary incontinence and tongue bite and she was foaming around the mouth. She follows up with Dr. Moreno office for her seizure management. She said that she had multiple EEGs as well as an ambulatory 3-D EEG and she was told that the seizure was coming from the left frontal temporal region and now is coming from some other region. She said that she had MRI and she was told that the she had some acute on chronic bleeding and that she was recommended neurosurgery evaluation but she declined. She was tried on multiple antiepileptic drugs and she said she had side effects to Keppra, Topamax and she's she said that she was on other medication but she cannot tell me what side effects she had and what was the dose. She is scheduled to see an epilepsy specialist over at [place] per her general neurologist recommendation and but she does not know when that will happen. She denies any history of depression. She denies any alcohol use or any illicit drug use. She said that she is not been driving for since her seizure. Regarding her history she stated that she was term, vaginal delivery in no complication. There is no family history of seizures. Patient home medication includes Lamictal 250mg bid (200 mg 1 tablet twice a day with additional 50mg 1 tab bid), Vimpat 200 mg 1 tablet twice a day. Patient is also on no cold 7. 5/325 one tablet 4 times a day when necessary and is on Xanax 1 mg 1 tablet 3 times a day when necessary. Some of the workup in the hospital consisted of: Initial vital signs: Blood pressure of 150/90, heart rate of 75, temperature of 98.6 Fahrenheit oral, respiratory of 18 and pulse ox of 99% at room air. CT of the head is reported as no acute intracranial process seen at this time. EKG is reported as normal sinus rhythm. Normal EKG. White blood cell is 7.5 which is normal. Initial POC glucose is 105. The AST is 40 and that ALT is 47 which is slightly elevated at. Otherwise the basic chemistry panel is not remarkable. Review of Systems Review of system: The 12 point system was reviewed and apparent positive and negative per HPI. Past Medical History Past Medical History: Hypertension, Seizure Disorder Additional Past Medical History / Comment(s): knee pain, back pain, migraines, kidney stones History of Any Multi-Drug Resistant Organisms: None Reported Past Surgical History: Back Surgery, Orthopedic Surgery Additional Past Surgical History / Comment(s): D & C l knee, nerve stimulator in her left chest. Past Anesthesia/Blood Transfusion Reactions: No Reported Reaction Past Psychological History: Anxiety Smoking Status: Current every day smoker Past Alcohol Use History: None Reported Additional Past Alcohol Use History / Comment(s): smoker on and off since age 16, 4cig/day Past Drug Use History: None Reported - Past Family History Mother History Unknown: Yes Medications and Allergies Home Medications Medication Instructions Recorded Confirmed Type Lacosamide [Vimpat] 200 mg PO BID 09/13/06/27/20 History ALPRAZolam [Xanax] 1 mg PO TID PRN 06/27/20 06/27/20 History Hydrocodone/Acetaminophen [[place] 1 tab PO QID PRN 06/27/20 06/27/20 History 7.5-325] Omeprazole 20 mg PO DAILY 06/27/20 06/27/20 History lamoTRIgine [LaMICtal] 50 mg PO BID 06/27/20 06/27/20 History lamoTRIgine [LaMICtal] 200 mg PO BID 06/27/20 06/27/20 History Allergies Allergy/AdvReac Type Severity Reaction Status Date / Time prednisone AdvReac Rash/Hives Verified 06/27/20 16:54 vancomycin [From Vancocin] AdvReac Rash/Hives Verified 06/27/20 16:54 Physical Examination - Vital Signs Vital Signs: Vital Signs Temp Pulse Pulse Resp BP BP Pulse Ox 06/28/20 08:00 75 18 06/28/20 07:00 98.2 F 75 18 106/67 06/28/20 02:00 16 06/28/20 01:21 98.2 F 82 16 98/63 98 06/27/20 20:00 16 06/27/20 19:45 98.4 F 71 16 128/76 98 06/27/20 17:02 65 16 117/75 97 06/27/20 16:05 77 18 122/77 98 06/27/20 14:22 75 18 140/91 97 06/27/20 13:11 98.6 F 75 18 150/90 99 Intake and Output 06/27/20 06/28/20 06/28/20 22:59 06:59 14:59 Other: Voiding Method Bedside Commode Bedside Commode Bedside Commode # Voids 1 1 Weight 83.915 kg GENERAL: The patient is lying in bed and is not in acute distress. CHEST: The heart rate is regular rate rhythm. No murmurs to auscultation. No carotid bruit bilaterally. LUNG: Clear to auscultation bilaterally no wheezing noted throughout. Not labored breathing. ABDOMEN/GI: Bowel sounds present in all 4 quadrants. No tenderness to palpation throughout. NEUROLOGICAL: Higher mental function: The patient is awake, alert, oriented to self, place and time. Patient is following commands. No aphasia and no neglect. Cranial nerves: The pupils are round, equal and reactive to light and accommodation. Visual baires are full to confrontation throughout. Extraocular movement is intact no nystagmus is noted. Facial sensation is normal to touch throughout. The facial strength is normal throughout. Hearing is normal bilaterally to hand rub. Tongue is midline and moved [id number] without any difficulty. No dysarthria is noted. Shoulder shrug is normal bilaterally. Motor: The strength is 5 over 5 throughout. Normal tone and bulk. Cerebellum: Normal finger to nose bilaterally. Sensation: Sensation is normal to touch throughout. Reflexes (right/left): 2+ Plantars are downgoing bilaterally. Results Urine analysis is negative for urinary tract infection. Influenza A/B PCR are not detected. VALENTINO-COV-2 PCR is not detected. Urine drug screen is positive for opiates and barbiturates - Laboratory Findings CBC and BMP: 06/27/20 13:54 06/28/20 10:08 Abnormal Lab Findings: Abnormal Labs 06/27/20 06/27/20 06/27/20 13:30 13:35 13:54 RBC 5.65 H Hct 46.9 H Chloride Carbon Dioxide Glucose POC Glucose (mg/dL) 105 H AST ALT Urine Protein Trace H Urine Opiates Screen Urine Barbiturates 06/27/20 06/27/20 06/27/20 13:54 20:41 21:48 RBC Hct Chloride 108 H Carbon Dioxide 19 L Glucose 110 H POC Glucose (mg/dL) 152 H AST 40 H ALT 47 H Urine Protein Urine Opiates Screen Positive A Urine Barbiturates Positive A 06/28/20 06/28/20 07:15 10:08 RBC Hct Chloride 110 H Carbon Dioxide Glucose 133 H POC Glucose (mg/dL) 102 H AST ALT Urine Protein Urine Opiates Screen Urine Barbiturates Assessment and Plan Assessment: Breakthrough seizure Epilepsy with multiple seizures a week (on two medication and has VNS). History of brain bleed in the past but refused neurosurgerical evaluation in the past. Mild elevated liver function test (AST is 40 and that ALT is 47) Plan: CT of the head is reported as no acute intracranial process seen at this time. She was given Ativan 1 mg once by the primary team. She was restarted on her home medication of Vimpat 200 mg 1 tablet twice a day, Lamictal a total dose of 250 mg twice a day (200mg and 50mg 1 tab bid). Patient refuses to be on any other medications or medication modification such as Keppra which I didn't have a convincing evidence of side effects or Depakote. She Didn't tell me that she is having worsening of her seizures but was not willing to have any additional medications added and she said that that she wants this to be done as an outpatient after speaking with her neurologist. Pending Lamictal and Vimpat level Continue seizure precaution. Physical therapy is consulted. Regarding MRI the brain per the patient and her sister's request (since felt off balance and were concerned about new bleed). I notified them that I can get the MRI the brain but then the patient stated that the she is claustrophobic and she cannot get any sedation local sedation and she had difficulty in the past. Patient wanted to MRI as an outpatient (at the same facility where she had her previous MRI). She was notified that her Neurologist (Dr. Moreno) need to order that for her. Patient was notified that she needs to follow-up with the new epilepsy specialist that she was referred by her neurologist (over at [place]) but she does not know the name. She was notified in the mean time to follow-up with Dr. Moreno within 1 weeks for her management of seizure. Upon discharge the patient needs to follow-up with her neurologist as an outpatient within 1-2 weeks. I feel the patient has underlying anxiety/depression that she is going through and I feel like she'll benefit from psychiatry evaluation. If she this cannot be done as an inpatient and I recommended as an outpatient. Per [place] patient was informed that she cannot drive for 6 month until seizure- free. She is to avoid the [place], heavy machinery and swimming unassisted. The plan is discussed with the patient and her sister (who is at bedside). Plan is also discussed with the nurse. Thank you for the consult. Jimy Garcia MD Neuro-Hospitalist Time with Patient: Greater than 30
[2020-06-28] MEDS ORDERED: predniSONE 20 MG TAB PO STA (13:35)
--- NOTE | 2020-06-28 14:21 | P.HPIM ---
History of Present Illness H&P Date: 06/28/20 Chief Complaint: Seizures History and Physical and Discharge Summary This is a 39-year-old presented to the ER with complaints of multiple seizures 48 hours with 2 grand mal seizures yesterday accompanied by increased weakness. Apparently patient initially presented to [facility] ER, received Ativan. Patient later presented to our ER. Reports compliancy with antiepileptic med regimen. No neuro deficits, no further seizure activity reported on admission.Denies chest pain, palpitations or shortness of breath. EKG reported normal sinus rhythm, brain CT reported no acute intracranial process. Afebrile, normal WBC, hemoglobin 15.6, platelets 267, sodium 139, potassium 4.5, BUN 11, creatinine 0.63, magnesium 2.1, minimal elevation in AST ALT .blood sugars controlled-110 on admission. UA negative for UTI. On admission hypertensive with systolic blood pressure 150/90, currently in the low 100s. Maintaining O2 sats in the high 90s on room air. Toxicology reported positive for both opiates and barbiturates. Pimentel virus not detected. Complains of "spinning" only when lying down. Discussed given her a one-time dose of Solu-Medrol but patient states IV steroids affect her breathing, but is able to take oral prednisone. Requestioned her several times, as prednisone is listed as an ALLERGY. She states she only had problems with the IV form. States she has taken the prednisone tablet with no issues. Discussed we will order her a one-time dose of prednisone 60 mg regarding potential vestibulopathy and patient is in agreement with. Patient up ambulating to and from bathroom, tolerated exertion well. Patient also discloses that Dr. Moreno is arranging for her to see a seizure specialist in [place]. Neurology consult in place, recommendations pending. Review of Systems ROS Statement: Those systems with pertinent positive or pertinent negative responses have been documented in the HPI. ROS Other: All systems not noted in ROS Statement are negative. Past Medical History Past Medical History: Hypertension, Seizure Disorder Additional Past Medical History / Comment(s): knee pain, back pain, migraines, kidney stones History of Any Multi-Drug Resistant Organisms: None Reported Past Surgical History: Back Surgery, Orthopedic Surgery Additional Past Surgical History / Comment(s): D & C l knee, nerve stimulator in her left chest. Past Anesthesia/Blood Transfusion Reactions: No Reported Reaction Past Psychological History: Anxiety Smoking Status: Current every day smoker Past Alcohol Use History: None Reported Additional Past Alcohol Use History / Comment(s): smoker on and off since age 16, 4cig/day Past Drug Use History: None Reported - Past Family History Mother History Unknown: Yes Medications and Allergies Home Medications Medication Instructions Recorded Confirmed Type Lacosamide [Vimpat] 200 mg PO BID 09/13/17 06/27/20 History ALPRAZolam [Xanax] 1 mg PO TID PRN 06/27/20 06/27/20 History Hydrocodone/Acetaminophen [[place] 1 tab PO QID PRN 06/27/20 06/27/20 History 7.5-325] Omeprazole 20 mg PO DAILY 06/27/20 06/27/20 History lamoTRIgine [LaMICtal] 50 mg PO BID 06/27/20 06/27/20 History lamoTRIgine [LaMICtal] 200 mg PO BID 06/27/20 06/27/20 History Nicotine 14Mg/24Hr Patch [Habitrol] 1 patch TRANSDERM DAILY patch 06/28/20 Rx Allergies Allergy/AdvReac Type Severity Reaction Status Date / Time prednisone AdvReac Rash/Hives Verified 06/27/20 16:54 vancomycin [From Vancocin] AdvReac Rash/Hives Verified 06/27/20 16:54 Physical Exam Vitals: Vital Signs Temp Pulse Pulse Resp BP BP Pulse Ox 06/28/20 08:00 75 18 06/28/20 07:00 98.2 F 75 18 106/67 06/28/20 02:00 16 06/28/20 01:21 98.2 F 82 16 98/63 98 06/27/20 20:00 16 06/27/20 19:45 98.4 F 71 16 128/76 98 06/27/20 17:02 65 16 117/75 97 06/27/20 16:05 77 18 122/77 98 06/27/20 14:22 75 18 140/91 97 06/27/20 13:11 98.6 F 75 18 150/90 99 Intake and Output 06/27/20 06/28/20 06/28/20 22:59 06:59 14:59 Other: Voiding Method Bedside Commode Bedside Commode Bedside Commode # Voids 1 1 Weight 83.915 kg GENERAL: Sitting up in bed, no acute distress HEAD: Atraumatic, normocephalic. EYES: Pupils equal round and reactive to light, extraocular movements intact, sclera anicteric, conjunctiva are normal. ENT:nares patent, oropharynx clear without exudates. Moist mucous membranes. NECK: Normal range of motion, supple without lymphadenopathy or JVD, no thyromegaly LUNGS: Breath sounds clear to auscultation bilaterally and equal. No wheezes rales or rhonchi. HEART: Regular rate and rhythm without murmurs, rubs or gallops.S1S2 Normal ABDOMEN: Soft, normoactive bowel sounds. No guarding, no rebound. EXTREMITIES: Normal range of motion, no pitting or edema. No clubbing or cyanosis. NEUROLOGICAL: Cranial nerves II through XII grossly intact. No focal deficits. PSYCH: Normal mood, normal affect. SKIN: Warm, Dry, normal turgor, no rashes. Results CBC & Chem 7: 06/27/20 13:54 06/28/20 10:08 Labs: Abnormal Lab Results - Last 24 Hours (Table) 06/27/20 06/27/20 06/27/20 Range/Units 13:30 13:35 13:54 RBC 5.65 H (3.80-5.40) m/uL Hct 46.9 H (34.0-46.0) % Chloride (98-107) mmol/L Carbon Dioxide (22-30) mmol/L Glucose (74-99) mg/dL POC Glucose (mg/dL) 105 H (75-99) mg/dL AST (14-36) U/L ALT (4-34) U/L Urine Protein Trace H (Negative) Urine Opiates Screen (Negative) ng/mL Urine Barbiturates (Negative) ng/mL 06/27/20 06/27/20 06/27/20 Range/Units 13:54 20:41 21:48 RBC (3.80-5.40) m/uL Hct (34.0-46.0) % Chloride 108 H (98-107) mmol/L Carbon Dioxide 19 L (22-30) mmol/L Glucose 110 H (74-99) mg/dL POC Glucose (mg/dL) 152 H (75-99) mg/dL AST 40 H (14-36) U/L ALT 47 H (4-34) U/L Urine Protein (Negative) Urine Opiates Screen Positive A (Negative) ng/mL Urine Barbiturates Positive A (Negative) ng/mL 06/28/20 Range/Units 07:15 RBC (3.80-5.40) m/uL Hct (34.0-46.0) % Chloride (98-107) mmol/L Carbon Dioxide (22-30) mmol/L Glucose (74-99) mg/dL POC Glucose (mg/dL) 102 H (75-99) mg/dL AST (14-36) U/L ALT (4-34) U/L Urine Protein (Negative) Urine Opiates Screen (Negative) ng/mL Urine Barbiturates (Negative) ng/mL Thrombosis Risk Factor Assmnt - Choose All That Apply Any of the Below Risk Factors Present?: Yes Each Factor Represents 1 point: Age 41-60 years, Heart failure (<1month), Obe sity (BMI >25) Other Risk Factors: No Other congenital or acquired thrombophilia - If yes, enter type in comment: No Thrombosis Risk Factor Assessment Total Risk Factor Score: 3 Thrombosis Risk Factor Assessment Level: Moderate Risk Assessment and Plan Assessment: Breakthrough seizures in a patient with history of epilepsy. Patient reports she is scheduled to follow-up with a seizure specialist in [place], arranged by her neurologist Dr. Moreno. History of brain bleed in the past but refused neurosurgical evaluation in the past, reported by patient. Brain CT reported no acute intracranial process. Claustrophobic, unable to proceed with MRI, declined sedation prior to. Declined adjustments recommended per neurology-wishes to pursue outpatient with her neurologist. Possible vestibulopathy. Hypertension Vagal Nerve Stimulator, Follows with Dr. Moreno Anxiety Depression Ongoing nicotine dependence Plan: Continue on current medication regime monitoring and symptomatic treatment. Seizure precautions. VImpat and Lamictal levels ordered with resulting levels to be faxed to both PCP and neurologist, Dr. Moreno..Neurology recommendations noted.Gentle IV fluid hydration. One time dose of oral prednisone-discussed fully with patient who states she has taken it previously and has had no problems with it. Smoking cessation reinforced .Patient will be discharged home today in a stable condition with guarded prognosis as patient has been cleared by neurology. Case management arranging for walker as recommended per PT. Patient to follow-up with Dr. Moreno this week and complete OP MRI. Patient has been advised to maintain seizure precautions, [place] state no driving until seizure free X 6 mths, avoid swimming unassisted, oper ating machinery, heights. Neurology also recommending Psychiatry evaluation outpatient. Discharge Medication List Lacosamide [Vimpat] 200 mg PO BID 09/13/17 [History] ALPRAZolam [Xanax] 1 mg PO TID PRN 06/27/20 [History] Hydrocodone/Acetaminophen [[place]ard 7.5-325] 1 tab PO QID PRN 06/27/20 [History] Omeprazole 20 mg PO DAILY 06/27/20 [History] lamoTRIgine [LaMICtal] 50 mg PO BID 06/27/20 [History] lamoTRIgine [LaMICtal] 200 mg PO BID 06/27/20 [History] Nicotine 14Mg/24Hr Patch [Habitrol] 1 patch TRANSDERM DAILY patch 06/28/20 [Rx] The impression and plan of care has been dictated as directed. : I performed a history and examination of this patient, discussed the same with the dictator. I agree with the dictator's note ,documented as a scribe. Any additional findings or plans will be noted.
[2020-06-28 15:18] VITALS: BP 132/82; PULSE 81; RESP 20
== END 2020-06-28 15:20 ==
LOC: EC 13:10 → 6NMEDSUR 16:42
PROVIDERS: ADMIT Family Medicine; ATTEND Family Medicine
DX: G40.409 Other generalized epilepsy and epileptic syndromes, not intractable, without status epilepticus (principal); I10 Essential (primary) hypertension; F40.240 Claustrophobia; Z96.82 Presence of neurostimulator; E87.2 Acidosis; F32.9 Major depressive disorder, single episode, unspecified; F17.200 Nicotine dependence, unspecified, uncomplicated; F41.9 Anxiety disorder, unspecified; R32 Unspecified urinary incontinence; G93.89 Other specified disorders of brain; E66.9 Obesity, unspecified; Z68.36 Body mass index [BMI] 36.0-36.9, adult; Z20.822 Contact with and (suspected) exposure to COVID-19; Z79.899 Other long term (current) drug therapy; Z88.1 Allergy status to other antibiotic agents; Z88.8 Allergy status to other drugs, medicaments and biological substances; Z98.890 Other specified postprocedural states; Z87.442 Personal history of urinary calculi; Z86.69 Personal history of other diseases of the nervous system and sense organs; Z87.39 Personal history of other diseases of the musculoskeletal system and connective tissue
CPT/HCPCS: 96376 ×2; 96375; 96361; 96374; 99285; 36415; 93005; 97162; 97166; 80053; 80048; 80175; 83735; 85025; 81003; 80306; 80235; 87636; 70450; G0378 ×2; S4990 ×2; J2060; J2405 ×2; J1885; J7512

== ENCOUNTER 2022-07-26 21:50 | Emergency (ER) | payer OTHER ==
[2022-07-26 21:58] VITALS: BP 157/97; PULSE 108; RESP 20; TEMP 98
[2022-07-26] MEDS ORDERED: KETOROLAC 15 MG/ML 1 ML VIAL IM STA (22:10)
[2022-07-26] MEDS ORDERED: HYDROcodone/APAP 5-325MG 1 EACH TAB PO STA (22:10)
--- NOTE | 2022-07-26 22:15 | ED ---
General Adult HPI - General Chief complaint: Extremity Injury, Lower Stated complaint: Right Foot Pain and swelling Time Seen by Provider: 07/26/22 22:01 Source: patient, RN notes reviewed, old records reviewed Mode of arrival: ambulatory Limitations: no limitations - History of Present Illness Initial comments: Patient is a 41-year-old female presenting with Department complaining of right foot pain. Has been ongoing since Saturday. Atraumatic. Has a history of hypertension and seizure disorder. States she has pain over the top of her right foot with a little bit of swelling. States it is worse when elevating. States she also has some radiation of the pain up her leg. Is concerned that she may have a blood clot. Denies any falls or trauma. Denies any fevers. Denies any sensory deficits. Is able to ambulate but it does hurt. Has no acute complaints at this time. Presents for further evaluation. - Related Data Home Medications Medication Instructions Recorded Confirmed Hydrocodone/Acetaminophen [[place] 1 tab PO Q6H PRN 06/27/20 05/24/21 7.5-325] Omeprazole 20 mg PO DAILY 06/27/20 05/24/21 lamoTRIgine [LaMICtal] 100 mg PO BID 06/27/20 05/24/21 Cephalexin [Keflex] 500 mg PO QID 05/24/21 05/24/21 Ibuprofen [Motrin] 800 mg PO Q8H PRN 05/24/21 05/24/21 Lacosamide [Vimpat] 200 mg PO BID 05/24/21 05/24/21 Previous Rx's Medication Instructions Recorded Ondansetron Odt [Zofran Odt] 4 mg PO Q8HR PRN #20 tab 05/24/21 Cyclobenzaprine [Flexeril] 5 mg PO TID PRN 7 Days #21 tablet 07/26/22 Allergies Allergy/AdvReac Type Severity Reaction Status Date / Time prednisone AdvReac Rash/Hives Verified 07/26/22 21:58 vancomycin [From Vancocin] AdvReac Rash/Hives Verified 07/26/22 21:58 Review of Systems ROS Statement: Those systems with pertinent positive or pertinent negative responses have been documented in the HPI. Review of Systems: CONST: Denies fever EYES: Denies blurry vision ENT: Denies nasal congestion C/V: Denies Chest pain RESP: Denies shortness of breath GI: Denies abdominal pain : Denies dysuria SKIN: Denies rash. MSK: Endorses right foot pain NEURO: Denies headache ROS Other: All systems not noted in ROS Statement are negative. Past Medical History Past Medical History: Hypertension, Seizure Disorder Additional Past Medical History / Comment(s): knee pain, back pain, migraines, kidney stones History of Any Multi-Drug Resistant Organisms: None Reported Past Surgical History: Back Surgery, Orthopedic Surgery Additional Past Surgical History / Comment(s): D & C l knee, nerve stimulator in her left chest. Past Anesthesia/Blood Transfusion Reactions: No Reported Reaction Past Psychological History: Anxiety Smoking Status: Current every day smoker Past Alcohol Use History: None Reported Past Drug Use History: None Reported - Past Family History Mother History Unknown: Yes General Exam - General Exam Comments Initial Comments: General: Appears in no acute distress. HEAD: Normal with no signs of head trauma. EYES: EOMI. ENT: Hearing grossly intact. RESPIRATORY: No respiratory distress. C/V: Regular rate and rhythm. 2+ pulses in the right DP and TP. ABD: Abdomen is nondistended. EXT: Tenderness to palpation over the dorsal aspect of the right foot near the ankle. Some mild swelling of the site with no evidence of erythema. No ankle pain. No other foot pain. No significant swelling of the right calf compared to left. No significant pain on palpation of the posterior calf. No other obvious acute findings. Some mild decreased range of motion secondary to pain. Patient is able to ambulate on it. Neurovascular intact. SKIN: No rashes or lesions observed on exposed skin. NEURO: Alert and oriented. Limitations: no limitations Course Vital Signs 07/26/22 21:56 Temperature 98.0 F Pulse Rate 108 H Respiratory 20 Rate Blood Pressure 157/97 O2 Sat by Pulse 99 Oximetry Medical Decision Making - Medical Decision Making Was pt. sent in by a medical professional or institution (, PA, SCHOOL SOCIAL WORKER, urgent care, hospital, or retirement...) When possible be specific @ -No Did you speak to anyone other than the patient for history (EMS, parent, family, police, friend...)? What history was obtained from this source @ -No Did you review nursing and triage notes (agree or disagree)? Why? @ -I reviewed and agree with nursing and triage notes Were old charts reviewed (outside hosp., previous admission, EMS record, old EKG, old radiological studies, urgent care reports/EKG's, retirement records)? Report findings @ -No old charts were reviewed Differential Diagnosis (chest pain, altered mental status, abdominal pain women, abdominal pain men, vaginal bleeding, weakness, fever, dyspnea, syncope, headache, dizziness, GI bleed, back pain, seizure, CVA, palpatations, mental health, musculoskeletal)? @ -Differential Musculoskeletal Muscular strain, contusion, ligament sprain, fracture, arthritis, septic arthritis, bursitis, cellulitis, muscle spasm, nerve compression, DVT, arterial occlusion, herpes zoster, electrolyte abnormality, tumor.... This is not meant to be in all inclusive list EKG interpreted by me (3pts min.). @ -None done X-rays interpreted by me (1pt min.). @ -Patient's right foot and ankle x-rays are negative for any acute fracture or injury. CT interpreted by me (1pt min.). @ -None done U/S interpreted by me (1pt. min.). @ -Right lower extremity venous duplex ultrasound is negative for DVT. What testing was considered but not performed or refused? (CT, X-rays, U/S, labs)? Why? @ -None What meds were considered but not given or refused? Why? @ -None Did you discuss the management of the patient with other professionals (professionals i.e. , PA, SCHOOL SOCIAL WORKER, lab, RT, psych nurse, social services specialist, assembler chassis, teacher, bank operations officer, catalytic case operator)? Give summary @ -No Was smoking cessation discussed for >3mins.? @ -No Was critical care preformed (if so, how long)? @ -No Were there social determinants of health that impacted care today? How? (Homelessness, low income, unemployed, alcoholism, drug addiction, transportation, low edu. Level, literacy, decrease access to med. care, senior care, rehab)? @ -No Was there de-escalation of care discussed even if they declined (Discuss DNR or withdrawal of care, Hospice)? DNR status @ -No What co-morbidities impacted this encounter? (DM, HTN, Smoking, COPD, CAD, Cancer, CVA, ARF, Chemo, Hep., AIDS, mental health diagnosis, sleep apnea, morbid obesity)? @ -None Was patient admitted / discharged? Hospital course, mention meds given and route, prescriptions, significant lab abnormalities, going to OR and other pertinent info. @ -Based on the patient's presentation and physical exam, I'm concerned for possible soft tissue injury the patient's right foot. Presents with atraumatic right foot pain It appears to be more of a muscle strain or sprain. Cannot definitively rule out DVT at this time. We did discuss the possible differential, and we agreed that we will obtain x-rays of the right foot and ankle as well as a venous duplex ultrasound of the right leg. She was in agreement this plan. She'll be given [place] as well as IM Toradol for pain. We will ice it as well. Vital signs within acceptable limits. Exam relatively unremarkable. Patient's imaging is negative for any acute process. No fracture, subluxation, DVT. I discussed results with the patient. She expressed understanding. Based on her presentation and exam, does appear more to be a soft tissue injury such as a muscle spasm or sprain. I will provide her with a prescription for Flexeril as well as a starter pack for Tylenol threes. She was in agreement this plan. She tells up with neurologist tomorrow and they can follow-up on her exam. She was in agreement this plan. She'll be discharged home at this time. I will provide the patient with a prescription for Flexeril. I instructed the patient to follow up with their PCP in the next 1-3 days. I provided contact information for follow up with orthopedics. I explained that the patient should return to the emergency department if they experience any worsening symptoms. Strict return precautions were discussed with the patient. The patient expressed understanding of these instructions. I answered all questions that the patient had. The patient was discharged home in good condition with their prescriptions and follow up information. Undiagnosed new problem with uncertain prognosis? @ -No Drug Therapy requiring intensive monitoring for toxicity (Heparin, Nitro, Insulin, Cardizem)? @ -No Were any procedures done? @ -No Diagnosis/symptom? @ -Right foot pain Acute, or Chronic, or Acute on Chronic? @ -Acute Uncomplicated (without systemic symptoms) or Complicated (systemic symptoms)? @ -Uncomplicated Side effects of treatment? @ -none Exacerbation, Progression, or Severe Exacerbation] @ -no Poses a threat to life or bodily function? @ -no Disposition Clinical Impression: Right foot pain Disposition: HOME SELF-CARE Condition: Good Instructions (If sedation given, give patient instructions): Foot Sprain (ED) Prescriptions: Cyclobenzaprine [Flexeril] 5 mg PO TID PRN 7 Days #21 tablet PRN Reason: Pain Is patient prescribed a controlled substance at d/c from ED?: No Referrals: Jean-Pierre Orlando Jr, DO [Primary Care Provider] - 1-2 days [place] Boles DO [Doctor of Osteopathic Medicine] - 1-2 days Time of Disposition: 23:24
--- NOTE | 2022-07-26 23:15 | XR ---
EXAM: XR Right Ankle Complete, 3 or More Views CLINICAL HISTORY: ITS. REASON XR Reason: pain, dorsal foot TECHNIQUE: Frontal, lateral and oblique views of the right ankle. COMPARISON: No relevant prior studies available. FINDINGS: Bones/joints: 3 mm heel spur. No acute fracture. No dislocation. Soft tissues: Unremarkable. IMPRESSION: No acute findings in the right ankle.
--- NOTE | 2022-07-26 23:16 | XR ---
EXAM: XR Right Foot Complete, 3 or More Views CLINICAL HISTORY: ITS.REASON XR Reason: pain, dorsal foot TECHNIQUE: Frontal, lateral and oblique views of the right foot. COMPARISON: No relevant prior studies available. FINDINGS: Bones/joints: 3 mm heel spur. No acute fracture. No dislocation. Soft tissues: Unremarkable. No radiopaque foreign body. IMPRESSION: No acute findings in the right foot.
--- NOTE | 2022-07-26 23:16 | US ---
EXAM: US Duplex Right Lower Extremity Veins CLINICAL HISTORY: ITS.REASON US Reason: eval for dvt TECHNIQUE: Real-time duplex ultrasound scan of the right lower extremity veins integrating B-mode two-dimensional vascular structure, Doppler spectral analysis, color flow Doppler imaging and compression. COMPARISON: No relevant prior studies available. FINDINGS: Deep veins: Unremarkable. No DVT in the visualized common femoral, femoral, proximal deep femoral or popliteal veins. The veins demonstrate normal color flow, are normally compressible, with normal phasic flow and/or augmentation response. Superficial veins: Unremarkable. No thrombus in the visualized great saphenous vein. Soft tissues: No acute findings. No popliteal cyst. IMPRESSION: Normal right lower extremity duplex venous ultrasound.
[2022-07-26] MEDS ORDERED: ACET/COD 300 MG/30 MG STARTER PACK 6 TAB BTL PO STA (23:25)
== END 2022-07-26 23:37 | disposition home or self-care (01) ==
LOC: EC 21:50
DX: M79.671 Pain in right foot (principal); I10 Essential (primary) hypertension; F17.200 Nicotine dependence, unspecified, uncomplicated; Z86.59 Personal history of other mental and behavioral disorders; Z88.1 Allergy status to other antibiotic agents; Z88.8 Allergy status to other drugs, medicaments and biological substances
CPT/HCPCS: 73610; 73630; 93971; 99284; J1885

== ENCOUNTER → 2022-10-24 | Outpatient (CLI) | payer OTHER ==
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
== END | disposition home or self-care (01) ==
LOC: RADCTMAIN 06:20
PROVIDERS: ATTEND Psychiatry & Neurology Neurology
DX: I63.9 Cerebral infarction, unspecified (principal); R51.9 Headache, unspecified
CPT/HCPCS: 70450

== ENCOUNTER 2023-03-06 23:40 | Emergency (ER) | payer OTHER ==
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
[2023-03-07 00:53] VITALS: TEMP 98
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
--- NOTE | 2023-03-07 01:04 | XR ---
EXAM: XR Chest, 1 View CLINICAL HISTORY: ITS.REASON XR Reason: right sided chest pain TECHNIQUE: Frontal view of the chest. COMPARISON: No relevant prior studies available. FINDINGS: Lungs: No consolidation or mass. Pleural space: No acute findings Heart: cardiomegaly. Bones/joints: No acute findings. IMPRESSION: No acute cardiopulmonary process.
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
[2023-03-07] MEDS ORDERED: ACET/COD 300 MG/30 MG STARTER PACK 6 TAB BTL PO STA (02:33)
[2023-03-07] MEDS ORDERED: IBUPROFEN 600 MG STARTER PACK 4 TAB BTL PO STA (02:33)
[2023-03-07 02:51] VITALS: BP 155/99; PULSE 78; RESP 24
== END 2023-03-07 02:50 | disposition home or self-care (01) ==
LOC: EC 23:40
DX: M54.2 Cervicalgia (principal); M54.50 Low back pain, unspecified; M54.6 Pain in thoracic spine; R51.9 Headache, unspecified; I10 Essential (primary) hypertension; G40.909 Epilepsy, unspecified, not intractable, without status epilepticus; F41.9 Anxiety disorder, unspecified; F17.200 Nicotine dependence, unspecified, uncomplicated; Z79.899 Other long term (current) drug therapy; Z88.1 Allergy status to other antibiotic agents; Z88.8 Allergy status to other drugs, medicaments and biological substances; V89.2XXA Person injured in unspecified motor-vehicle accident, traffic, initial encounter; Y92.410 Unspecified street and highway as the place of occurrence of the external cause
CPT/HCPCS: 71045; 72129; 72125; 72132; 70450; 71260; 74177; 99284; Q9967

== ENCOUNTER → 2023-05-22 | Outpatient (CLI) | payer OTHER ==
[2023-05-23 02:09] LABS: Basophils # (A) 0.02 X 10*3/uL (0.00-0.10); Basophils % (A) 0.3 %; Eosinophils % (A) 1.4 %; HCT 44.1 % (37.2-46.3); HGB 14.2 g/dL (12.0-15.0); MCH 26.7 pg (27.0-32.0); MCHC 32.2 g/dL (32.0-37.0); MCV 82.9 FL (80.0-97.0); Mean Platelet Volume 9.3 FL (9.5-12.2); Monocytes # (A) 0.29 X 10*3/uL (0.20-1.00); Monocytes % (A) 4.2 %; NRBC Per 100 WBC 0 X 10*3/uL (0.00-0.01); Neutrophils # (A) 4.64 X 10*3/uL (1.80-7.70); Neutrophils % (A) 67.2 %; Platelet Count 265 X 10*3/uL (140-440); RBC 5.32 X 10*6/uL (4.10-5.20); RDW 14.3 % (11.5-14.5); WBC 6.91 X 10*3/uL (4.50-10.00)
[2023-05-23 02:26] LABS: Erythrocyte Sedimentation Rate 4 mm/Hr (0-20)
[2023-05-23 02:31] LABS: ALT 51 U/L (8-44); AST 37 U/L (13-35); Albumin 4.4 g/dL (3.8-4.9); Alkaline Phosphatase 92 U/L (41-126); BUN/Creat Ratio 14.14 Ratio (12.00-20.00); Blood Urea Nitrogen 9.9 mg/dL (9.0-27.0); Carbon Dioxide 21.2 mmol/L (21.6-31.8); Chloride 105 mmol/L (96-109); Globulin 2.1 g/dL (1.6-3.3); Glucose 145 mg/dL (70-110); LDL Cholesterol,Calculated 128.5 mg/dL (0.0-131.0); Potassium 3.9 mmol/L (3.5-5.5); Sodium 139 mmol/L (135-145); Total Bilirubin 0.5 mg/dL (0.3-1.2); Total Protein 6.5 g/dL (6.2-8.2)
[2023-05-23 10:27] LABS: Lamotrigine (Lamictal) 2.6 ug/mL (2.0-15.0)
== END | disposition home or self-care (01) ==
LOC: LABWHC1 15:24
PROVIDERS: ATTEND Psychiatry & Neurology Pain Medicine
DX: R07.89 Other chest pain (principal); R07.9 Chest pain, unspecified; R56.9 Unspecified convulsions; Z79.899 Other long term (current) drug therapy
CPT/HCPCS: 36415; 80053; 80061; 80175; 80235; 85025; 85652; 93005

== ENCOUNTER → 2023-07-19 | Outpatient (CLI) | payer OTHER ==
[2023-07-19 11:17] LABS: Basophils # (A) 0.02 X 10*3/uL (0.00-0.10); Basophils % (A) 0.3 %; Eosinophils # (A) 0.17 X 10*3/uL (0.04-0.35); Eosinophils % (A) 2.3 %; HCT 44.4 % (37.2-46.3); HGB 14.4 g/dL (12.0-15.0); Lymphocytes # (A) 1.87 X 10*3/uL (0.90-5.00); Lymphocytes % (A) 25.6 %; MCH 26.9 pg (27.0-32.0); MCHC 32.4 g/dL (32.0-37.0); MCV 82.8 FL (80.0-97.0); Mean Platelet Volume 9.5 FL (9.5-12.2); Monocytes # (A) 0.46 X 10*3/uL (0.20-1.00); Monocytes % (A) 6.3 %; NRBC Per 100 WBC 0 X 10*3/uL (0.00-0.01); Neutrophils # (A) 4.71 X 10*3/uL (1.80-7.70); Neutrophils % (A) 64.5 %; Platelet Count 269 X 10*3/uL (140-440); RBC 5.36 X 10*6/uL (4.10-5.20); RDW 14.6 % (11.5-14.5)
[2023-07-19 16:21] LABS: ALT 96 U/L (8-44); AST 61 U/L (13-35); Albumin 4.5 g/dL (3.8-4.9); Albumin/Globulin Ratio 2.05 Ratio (1.60-3.17); Alkaline Phosphatase 93 U/L (41-126); BUN/Creat Ratio 19.14 Ratio (12.00-20.00); Blood Urea Nitrogen 13.4 mg/dL (9.0-27.0); Calcium 9.4 mg/dL (8.7-10.3); Carbon Dioxide 23.7 mmol/L (21.6-31.8); Chloride 107 mmol/L (96-109); Chol/HDL Ratio 6.41 Ratio; Globulin 2.2 g/dL (1.6-3.3); Glucose 116 mg/dL (70-110); LDL Cholesterol,Calculated 126.9 mg/dL (0.0-131.0); Potassium 4.8 mmol/L (3.5-5.5); Sodium 142 mmol/L (135-145); Total Bilirubin 0.5 mg/dL (0.3-1.2); Total Protein 6.7 g/dL (6.2-8.2)
== END | disposition home or self-care (01) ==
LOC: LABWHC1 07-17 14:16
PROVIDERS: ATTEND Family Medicine
DX: N64.4 Mastodynia (principal); K21.9 Gastro-esophageal reflux disease without esophagitis; F32.9 Major depressive disorder, single episode, unspecified
CPT/HCPCS: 36415; 80053; 80061; 82306; 84443; 85025

== ENCOUNTER → 2023-07-22 | Outpatient (CLI) | payer OTHER ==
--- NOTE | 2023-07-22 08:31 | MM ---
Reason for Exam: Clinical finding. Last mammogram was performed 17 year(s) and 2 month(s) ago. Patient History: Menarche at age 11. First Full-Term at age 15. Maternal aunt had breast cancer. Risk Values: Romana 5 year model risk: 0.5%. NCI Lifetime model risk: 7.1%. Tissue Density: The breasts are heterogeneously dense, which may obscure small masses. Findings: Analyzed By CAD. No significant mass, suspicious microcalcification, or other discrete abnormality is seen. Overall Assessment: Negative, BI-RAD 1 Management: Screening Mammogram of both breasts in 1 year. Further clinical management of patient's bilateral breast pain. Results were given to the patient verbally at the time of exam. Patient should continue monthly self-breast exams. A clinical breast exam by your physician is recommended on an annual basis. This exam should not preclude additional follow-up of suspicious palpable abnormalities. Note on Romana scores and lifetime risk: 1. A Romana score greater than 3% is considered moderate risk. If this is the case, consider specialist referral to assess eligibility for a risk reducing agent. 2. If overall lifetime risk for the development of breast cancer is 20% or higher, the patient may qualify for future screening with alternating mammogram and breast MRI. Electronically signed and approved by: Mary Russo M.D. Radiologist
== END | disposition home or self-care (01) ==
LOC: RADMAMWWP 08:04
PROVIDERS: ATTEND Family Medicine
DX: R92.333 Mammographic heterogeneous density, bilateral breasts (principal); N64.4 Mastodynia; Z80.3 Family history of malignant neoplasm of breast
CPT/HCPCS: 77066; G0279; 77062

== ENCOUNTER → 2024-02-13 | Outpatient (CLI) | payer OTHER ==
--- NOTE | 2024-02-14 17:32 | US ---
EXAMINATION TYPE: US abdomen limited DATE OF EXAM: 02/13/2024 COMPARISON: NONE CLINICAL INDICATION: Female, 43 years old with history of R19.09 Abdominal mass of other site; pt has been feeling a lump in her RUQ rib area for 5 years now, lump started to grow bigger and become pain ful x 1 year ago TECHNIQUE: Grayscale imaging of the abdominal wall in the area of concern. FINDINGS: Abundance of adipose tissue present in the area of concern, no organizing fluid collection or mass. Left side scanned for comparison IMPRESSION: No evidence for soft tissue mass or organizing fluid collection. Area of concern demonstrates abundan ce of adipose tissue. Finding could be confirmed with a palpable marker placed with CT imaging. [facility], , 02/14/2024 5:30 PM
== END | disposition home or self-care (01) ==
LOC: RADUSWWP 07:06
PROVIDERS: ATTEND Family Medicine
DX: R19.09 Other intra-abdominal and pelvic swelling, mass and lump (principal)
CPT/HCPCS: 76705